=== PATIENT | female | born 1960 | race Caucasian/White ===

== ENCOUNTER 2016-05-29 16:55 | Inpatient (IN) ==
[2016-05-29] MEDS ORDERED: ASPIRIN PO STA (18:13)
--- NOTE | 2016-05-29 18:16 | PROVIDER DOCUMENTATION ---
HPI-Respiratory General - General Chief Complaint: Cough Stated Complaint: COPD,COUGHING,CHEST HURTS Time Seen by Provider: 05/29/16 18:07 Source: patient Allergies/Adverse Reactions: Patient Allergies Allergy/AdvReac Type Severity Reaction Status Date / Time meperidine HCl * AdvReac Severe AGITATION Verified 05/29/16 19:05 [From Demerol] Home Medications: Home Medication List Medication Instructions Recorded Confirmed Last Taken Type Buprenorphine HCl/Naloxone HCl 8 mg SL BID 03/03/12 05/29/16 05/29/16 History [Suboxone 8 mg/2 mg Sl Film] Fluticasone/Salmeterol [Advair 1 each IH DAILY PRN 03/05/12 05/29/16 05/29/16 History 250-50 Diskus] Furosemide [Lasix] 40 mg PO DAILY #0 vial 02/17/14 05/29/16 05/29/16 Rx Potassium Chloride 20 meq PO BID #0 tablet.er 02/17/14 05/29/16 05/29/16 Rx Ibuprofen 800 mg PO TID 01/24/15 05/29/16 05/29/16 History Rivaroxaban [Xarelto] 15 mg PO DAILY 01/24/15 05/29/16 05/29/16 History Sulfamethoxazole/Trimethoprim 1 each PO BID #20 tablet 08/31/15 05/29/16 Rx [Bactrim Ds Tablet] Methocarbamol [Robaxin] 500 mg PO BID PRN 05/29/16 05/29/16 05/29/16 History Multivitamin [Multivitamins] 1 each PO DAILY 05/29/16 05/29/16 05/29/16 History - History of Present Illness-Resp Nature of Presenting Problem: 55 year old WF presents with multiple complains: cough, congestion, subjective fever, chills, chest pain (last night now resolved), low back pain, constipation , epigastric pain. onset of all symptoms 5 days ago. pt reports associated lack of appetite, nausea, weakness. pt reports similar symptoms in the past with a diagnosis of pna. pt reports she is taking all medications as prescribed. pt was evaluated by her PMD yesterday for same and was told it was her COPD. pt in very mild distress. slightly short of breath with walking from waiting to triage 2 where she was examined. Quality of Pain: reports: aching, dull Severity in ED: reports: mild Onset/Duration: reports: 5 days ago Timing: reports: still present, constant, getting worse Context: denies: recent URI, out of meds Exposure: reports: unknown cause Cough Quality/Degree: reports: moderate Episode Frequency: chronic episodes Current Respiratory Medication Therapy: Initiated steroid inhaler, Initiated albuterol Modifying Factors: improves with: nothing, rest, sitting upright. worse with: albuterol inhaler (pt reports no relilef with 1 puff BID) Associated Symptoms: reports: chest pain/soreness, cough, fever/chills, hurts to breathe, shortness of breath, short of breath, wheezing Similar Symptoms Previously?: Yes Recently seen or treated by another doctor?: Yes Review of Systems - Adult - REVIEW OF SYSTEMS - ADULT Constitutional: reports: see HPI, chills, fever (subjective) Eyes: reports: no symptoms reported. denies: discharge, blurred vision, double vision Ears, Nose, Mouth & Throat: reports: no symptoms reported. denies: ear discharge, ear pain, nose pain, loose teeth, throat pain, throat swelling Cardiovascular: reports: see HPI, chest pain, edema, irregular heart rate. denies: heart murmur, orthopnea, palpitations, poor circulation, PND, syncope Respiratory: reports: see HPI, chronic cough, dyspnea on exertion (baseline for patient), shortness of breath, wheezing Gastrointestinal: reports: see HPI, constipation, nausea, poor appetite, vomiting. denies: abdominal pain, hematemesis, diarrhea, difficulty swallowing , frequent heartburn, rectal bleeding Genitourinary: reports: no symptoms reported. denies: dysuria, hematuria, urgency Musculoskeletal: reports: no symptoms reported. denies: bone pain, joint pain, joint swelling, neck pain Integumentary: reports: see HPI, skin sores/ulcer (chronic). denies: hives Neurological: reports: no symptoms reported. denies: ataxia, dizziness/vertigo , headache/migraines Psychiatric: reports: no symptoms reported Endocrine: reports: no symptoms reported Hematologic/Lymphatic: reports: no symptoms reported Allergic/Immunologic: reports: see HPI, frequent infections (pna) All Other Systems: Reviewed and Negative Past History - Adult - PAST MEDICAL HISTORY-ADULT Review of Records: reports: Old Records Reviewed, Nursing Assessment Review, Medications Reviewed, Social history reviewed & non-contributory. Major Childhood Illnesses: reports: denies history Cardiovascular: reports: cardiac disease, A-Fib, angina, CAD, CHF, HTN, hyperlipidemia, OH, pacemaker (with defibrillator), pericardial disease Respiratory: reports: asthma, bronchitis, COPD Gastrointestinal: reports: denies history Obstetrical/Gynecological: reports: denies history Genitourinary: reports: denies history Musculoskeletal: reports: chronic pain, intervertebral disc disease, neck/back injury, orthopedic injury Neurological: reports: CVA Psychiatric: reports: anxiety Diabetes Type: Type 2 Diabetes controlled by:: Diet Other Conditions: reports: denies history - PRIOR SURGERIES/PROCEDURES Surgical/Procedure History: reports: cholecystectomy, pacemaker, hysterectomy - IMMUNIZATION STATUS Childhood Immunizations: See Nurse Assessment Flu Vaccine: See Nurse Assessment - FAMILY HISTORY Family History: reviewed, not pertinent - SOCIAL HISTORY Smoking: cigarettes, greater than 1 pack/day Provider spent 3-5 mins advising pt. on dangers of tobacco.: Discussed manners to quit use, and f/u contacts for add'l counseling. Substance Use: none/never Alcohol Use Frequency: never Physical Exam-General - PHYSICAL EXAM-ADULT Initial Vital Signs Reviewed: Yes - CONSTITUTIONAL General Appearance: appears well, alert, no apparent distress. negative: mild distress, moderate distress, severe distress - EYES Eyes: pink conjunctivae. negative: conjuctival exudate, pale conjunctivae, scleral icterus, subconjunctival hemorrhage - HEAD, EARS, NOSE, MOUTH & THROAT HENMT: normocephalic/atraumatic, moist mucous membranes, normal ENT inspection - NECK Neck: non-tender, full range of motion, supple, normal inspection. negative: C- spine tenderness, limited range of motion, tender lateral, tender midline - RESPIRATORY Respiratory: chest non-tender, lungs clear, no pleuratic chest pain, no respiratory distress, no accessory muscle use, decreased breath sounds. negative: normal breath sounds, respiratory distress, accessory muscle use, crackles, rales, rhonchi, stridor, wheezing - CARDIOVASCULAR Cardiovascular: normal peripheral pulses, regular rate, rhythm, no edema, no gallop, no JVD, no murmur - GASTROINTESTINAL (ABDOMEN) Abdominal Exam: normal bowel sounds, soft, no organomegaly, no pulsatile mass, tenderness (epigastric tenderness). negative: non tender, abnormal bowel sounds , distended, guarding, rigid, rebound, hernia, mass, hepatomegaly, spleenomegaly , McBurney's point tenderness, Quijano's sign, obturator sign, prominent aortic pulsations, psoas, Rovsing's sign - LYMPHATIC Lymphatic: no adenopathy - MUSCULOSKELETAL Back Exam: normal inspection, no CVA tenderness, no vertebral tenderness. negative: CVA tenderness, decreased range of motion, swelling, vertebral tenderness Extremity: normal range of motion, non-tender, normal gait, normal inspection, no calf tenderness, normal capillary refill, pelvis stable, pedal edema (trace edema to bilateral lower extremities to the knee level). negative: no pedal edema, calf tenderness, deformity, erythema, inflammation, joint effusion, swelling, tenderness Peripheral Pulses: radial (R): 3+, radial (L): 3+, dorsalis-pedis (R): 3+, dorsalis-pedis (L): 3+ - SKIN Integumentary: normal color, normal turgor, warm/dry. negative: pallor, petechiae, purpura, rash - NEUROLOGIC Neurologic: grossly normal, no motor/sensory deficits - PSYCHIATRIC Psych/Mental Status: normal mood/affect, normal thought content, normal thought process, oriented x 3 Progress - PLAN OF CARE/RESULTS Progress/Plan/Lab Results: Orders Category Date Time Status Admit - [facility] - [facility] Routine AdmDCTranf 05/30/16 00:42 Ordered Cardiac Monitoring DIRECTED Care 05/29/16 18:14 Completed Misc. NRSG Communication Order DIRECTED Care 05/30/16 00:42 Active Notify MD if DIRECTED Care 05/30/16 00:42 Active Nursing- MD Consult Request ROUTINE Care 05/30/16 00:42 Completed Nursing- MD Consult Request ROUTINE Care 05/30/16 00:42 Completed Saline Loc NOW Care 05/29/16 18:14 Completed Vital Signs Order Q 4-HR ASSESS Care 05/30/16 00:42 Active Physician/Provider Consults Routine Cons 05/30/16 08:00 Ordered Physician/Provider Consults Routine Cons 05/30/16 08:00 Ordered ABDOMEN FLAT/UPRIGHT [RAD] Stat Exams 05/29/16 18:14 Completed CHEST-2 VIEWS [RAD] Stat Exams 05/29/16 17:14 Completed AMYLASE [CHEM] Stat Lab 05/29/16 19:20 Completed BLOOD CULTURE [BLDCUL] Stat Lab 05/29/16 19:25 Results CBC WITH ELECTRONIC DIFF [HEME] Routine Lab 05/30/16 05:00 Completed CBC WITH ELECTRONIC DIFF [HEME] Stat Lab 05/29/16 19:20 Completed CK PROFILE [SP CHEM] Q8H Lab 05/30/16 01:45 Completed CK PROFILE [SP CHEM] Q8H Lab 05/30/16 08:20 Completed CK PROFILE [SP CHEM] Q8H Lab 05/30/16 17:00 Completed CK PROFILE [SP CHEM] Stat Lab 05/29/16 19:20 Completed CK PROFILE [SP CHEM] Stat Lab 05/29/16 21:58 Completed COMPREHENSIVE METABOLIC PANEL [CHEM] Stat Lab 05/29/16 19:20 Completed D-DIMER [CHEM] Stat Lab 05/29/16 19:20 Completed LACTATE, PLASMA [CHEM] Stat Lab 05/29/16 19:25 Completed LIPASE [CHEM] Stat Lab 05/29/16 19:20 Completed LIPID PROFILE W/DIR LDL [LIPIDS] Routine Lab 05/30/16 05:00 Completed MAGNESIUM [CHEM] Stat Lab 05/29/16 19:20 Completed PRO B-NATRIURETIC PEPTIDE Stat Lab 05/29/16 19:20 Completed PROTIME WITH INR [COAG] Stat Lab 05/29/16 19:20 Completed PTT [COAG] Stat Lab 05/29/16 19:20 Completed TROPONIN T Q8H Lab 05/30/16 01:45 Completed TROPONIN T Q8H Lab 05/30/16 08:20 Completed TROPONIN T Q8H Lab 05/30/16 17:00 Completed TROPONIN T Stat Lab 05/29/16 19:20 Completed TROPONIN T Stat Lab 05/29/16 21:58 Completed UA NIMS W/REFLEX CULT [URINALYSIS] Stat Lab 05/30/16 09:30 Completed 0.9% Sodium Chloride Inj [Ns] 1,000 ml Med 05/30/16 00:42 Discontinued IV 50 mls/hr Acetaminophen [Tylenol] Med 05/30/16 00:42 Active 650 mg PO Q6H PRN PRN Albuterol 2.5MG/Ipratrop 0.5MG [Duoneb (A & A)] Med 05/30/16 00:42 Active 3 ml INH RTQ6H Aspirin Med 05/30/16 09:00 Active 325 mg PO DAILY Aspirin Med 05/29/16 18:13 Discontinued 325 mg PO STAT STA Buprenorphine/Naloxone S.l. [Suboxone 8 mg/2 mg] Med 05/30/16 02:15 Active 1 each SL BID Fluticasone/Salmet 250/50 INH [Advair 250/50 Diskus] Med 05/29/16 23:43 Active 2 puff INH DAILY PRN PRN Morphine Med 05/29/16 20:46 Discontinued 4 mg IV NOW ONE Morphine Med 05/29/16 21:58 Discontinued 4 mg IV NOW ONE Ondansetron [Zofran] Med 05/29/16 20:46 Discontinued 4 mg IV NOW ONE Ondansetron [Zofran] Med 05/30/16 00:42 Active 4 mg IV Q4H PRN PRN Rivaroxaban [Xarelto] Med 05/30/16 09:00 Discontinued 15 mg PO DAILY Aerosol Treatments Routine Oth 05/30/16 00:42 Completed Aerosol Treatments Stat Oth 05/30/16 00:42 Completed Oxygen Device Routine Oth 05/30/16 00:42 Completed Telemetry [OM.EQ] Routine Oth 05/30/16 00:42 Active EKG [EKG] Stat Ther 05/29/16 18:14 Draft EKG [EKG] Stat Ther 05/29/16 21:40 Draft Echo Spec/Color Dop W/O Contra Routine Ther 05/30/16 00:42 Completed Transfer/Admit Order [TRANSFER] Routine Transfer 05/29/16 23:46 Completed Reviewed labs,radiology, EKG, H&P with Dr. Philippe, agrees with plan of care, treatment and admission. Result Diagrams: 05/30/16 05:00 05/31/16 08:23 - XRAY 1 XRAY Study: Chest Impression: Normal 2 XRAY Study: Abdomen Impression: Normal - CONSULTS/PCP/HOSPITALIST Notification #1 *Consult/PCP/Hospitalist*: Answering service for Dr. Gross Time Discussed: 20:47 Consult Disposition: other (attempted to call him directly, no answer, they will send message for him to call, relayed labs.) #2 Consult: Dr. Gross Time Discussed: 21:27 Reason/Comments: Reviewed labs, EKG findings, hx, H&P. Consult Disposition: Admit (admit to hospitalist and he will consult.) #3 Consult: Dr. Collier Time Discussed: 23:16 Consult Disposition: Will see in ED, Admit Departure - Departure Time of Disposition Decision: 23:20 DIAGNOSIS: Chest pain, Heart failure, Elevated troponin Disposition: ADMITTED INPATIENT 09 Certified Medical Emergency: Emergent Condition: Stable Attestation - Physician/ ANABELLE Attestation Patient care was provided by Advanced Practice Provider:: Yes Advanced Practice Provider:: Hussain Levin Advanced Practice Provider documentation review:: The Mid-level provider documentation, treatment plan and medical decision making was reviewed by the physician who agrees with all treatment and medical decision making by the MLP.
--- NOTE | 2016-05-29 18:51 | Diag Imaging Result Document ---
PROCEDURE NAME: CHEST-2 VIEWS - 05/29/2016 FRONTAL AND LATERAL CHEST, 2 VIEWS: COMPARISON: Compared to 04/11/2015. The lungs are well expanded. The heart is not enlarged. The vessels are not distended. No pleural effusions. There is a left-sided pacemaker. No consolidation. IMPRESSION: No pneumonia.
[2016-05-29 19:38] LABS: MANUAL DIFF NEEDED? NO
[2016-05-29 19:44] LABS: BASO% 0.2 % (0.0-0.8); EOS# 0.03 X1000 (0.0-0.7); EOS% 0.2 % (0.0-10.0); HEMATOCRIT 37.9 % (37.0-47.0); HEMOGLOBIN 12.6 g/dL (12.0-16.0); IMM GRAN# 0.03 X1000 (0.0-0.04); IMM GRAN% 0.2 % (0.0-0.5); LYMPH# 1.76 X1000 (1.2-3.4); LYMPH% 11.4 % (20.5-51.1); MCH 29.9 PG (27-31); MCHC 33.2 g/dL (33-37); MONO# 1.31 X1000 (0.11-0.59); MONO% 8.5 % (1.7-9.3); MPV 11.7 FL (7.4-10.4); NEUT% 79.5 % (42.2-75.2); PLT 195 X1000 (130-400); RBC 4.21 XMIL (4.2-5.4)
[2016-05-29 19:52] LABS: INR 1.02; PROTIME 10.7 Seconds (9.2-11.7); PTT 29.5 Seconds (22.0-36.0)
[2016-05-29 20:15] LABS: ALBUMIN 3.8 g/dL (3.5-5.0); CALCIUM 8.9 mg/dL (8.8-10.2); MAGNESIUM 1.5 mg/dL (1.5-2.7); POTASSIUM 3.8 mmol/L (3.5-5.1); TOTAL BILIRUBIN 0.28 mg/dL (0.20-1.00); TOTAL PROTEIN 7.2 g/dL (6.3-8.3)
[2016-05-29 20:33] LABS: CK INDEX 7.3 (0.0-2.5); CK-MB 57.66 ng/mL (0.0-5.0)
[2016-05-29] MEDS ORDERED: ZOFRAN IV ONE (20:46)
[2016-05-29] MEDS ORDERED: MORPHINE IV ONE ×2 (20:46→21:58)
--- NOTE | 2016-05-29 21:37 | Diag Imaging Result Document ---
PROCEDURE NAME: ABDOMEN FLAT/UPRIGHT - 05/29/2016 FLAT AND UPRIGHT, 2 VIEWS: COMPARISON: Compared to 01/24/2015. No free air beneath the diaphragm. There are vascular stents overlying the lower lumbar spine and pelvis. There has been prior surgery to the lower lumbar spine. The bowel loops are not dilated. No organomegaly. A small amount of stool is found throughout the colon. No abnormal abdominal calcifications. IMPRESSION: Mild constipation.
[2016-05-29 22:57] LABS: CK INDEX 6.3 (0.0-2.5); CK-MB 46.12 ng/mL (0.0-5.0)
[2016-05-29] MEDS ORDERED: ADVAIR 250/50 DISKUS INH PRN (23:43)
[2016-05-30] MEDS ORDERED: NS 1,000 ML IV ONE (00:42)
--- NOTE | 2016-05-30 01:31 | HISTORY AND PHYSICAL ---
PRIMARY CARE PROVIDERS: Dr. Jeff Bills. AUTO RESEARCH ENGINEER: Dr. Gross. CHIEF COMPLAINT: Cough, shortness of breath and chest pain. HISTORY OF PRESENT ILLNESS: This is a 55-year-old female, who recently saw Dr. Gross. He released her related to her not keeping appointments. She now sees Dr. Bills, and was in her PCP office yesterday with complaints of a cough and congestion, and was told that it was her COPD. Upon presentation tonight, she had a complaint of cough, congestion and fever at home. Chills and chest pain last night that had resolved. It was mid sternal into her left chest, causing tingling in her arms. She also had nausea with this. No vomiting. She had shortness of breath with exertion, but was able to walk without shortness of breath [facility]. She also had complaint of constipation and epigastric pain in the emergency room. All which started roughly 5 days ago. The patient has a history of coronary artery disease with stenting, atrial fibrillation with chronic anticoagulation on Xarelto. She has a pacemaker with defibrillator. She has COPD and continues to smoke. She takes Suboxone for chronic back pain. At any rate, a chest x-ray was obtained in the emergency room, which was read as basically an in place left-sided pacemaker. No pulmonary edema. No pleural effusions, and no infiltrates consistent with pneumonia. A flat and upright of the abdomen was obtained, which did show mild constipation. The patient takes Lasix at home, noted that the Lasix over the past couple of days did not work as well as usual, as far as pulling fluid off of her, which correlates with her laboratory data of an elevated creatinine of 1.7. It was also noted that the patient had Bactrim DS in the emergency room, which could have caused her to have acute kidney injury. Her CK's and troponin's were elevated in the emergency room. The troponin started off at 2.040, and will on recheck 2.240. Dr. Gross was made aware, and will see the patient in the morning. She will be admitted to CICU for further evaluation and treatment. ALLERGIES: Demerol. PAST MEDICAL HISTORY: Ovarian cancer. All other past medical history listed in the HPI. PREVIOUS SURGICAL HISTORY: 1. Cardiac stenting. 2. Hysterectomy . 3. Cholecystectomy. 4. Skin graft to right upper arm. 5. Back fusions x2. 6. Pacemaker, and then pacemaker placement. SOCIAL HISTORY: Lives at home. Smokes 1 to 2 packs of cigarettes per day. Quit work 6 months ago for her health. Denies alcohol or substance abuse. Does take Suboxone for chronic back pain. FAMILY HISTORY: Her mother had diabetes mellitus and colon cancer. Father diabetes and prostate cancer. HOME MEDICATIONS: 1. Suboxone 8 mg/2 mg b.i.d. 2. Advair 250/50, one inhalation p.r.n. 3. Lasix 40 mg p.o. daily. 4. Potassium 20 mEq p.o. b.i.d. 5. Ibuprofen 800 mg p.o. t.i.d. 6. Xarelto 15 mg p.o. daily. 7. Bactrim DS 1 p.o. b.i.d. 8. Multivitamin. 9. Robaxin 500 mg p.o. b.i.d. REVIEW OF SYSTEMS: Fourteen point review of systems conducted with the patient. Pertinent positives are listed above in the HPI. All other systems were reviewed and are negative. PHYSICAL EXAMINATION: VITAL SIGNS: Temperature 98.4, pulse 94, respirations 23, blood pressure 108/51, oxygen saturation 95% on 2 L nasal cannula. GENERAL: Pleasant 55-year-old female, sitting up in the ER stretcher, drinking a diet Mountain Dew, in no acute distress. Answers all questions appropriately. HEENT: Head is atraumatic, normocephalic. Pupils equal, round, reactive to light. Extraocular eye movement intact. Sclerae is anicteric. Conjunctivae is pink. Oral mucosa is moist. NECK: Supple. No JVD. No thyromegaly. Trachea is midline. CARDIAC: Regular rhythm, S1-S2 appreciated. No murmurs, gallops or rubs. LUNGS: Mild expiratory wheezing throughout bilateral lung olea, otherwise symmetrical rise and fall with respirations. No rhonchi and no rales. ABDOMEN: Protuberant, soft, nondistended, nontender. Bowel sounds decreased in all 4 quadrants. No pulsatile mass. No organomegaly. EXTREMITIES: No clubbing, cyanosis, or edema. Bilateral lower extremities 2+ pedal pulses. Bilateral upper extremities small scabs noted on bilateral extremities. NEUROLOGICAL: Alert orient x3. Cranial nerves 2 through 12 grossly intact. SKIN: Warm, dry. Multiple skin lesions noted to bilateral upper extremities with scabbing. DIAGNOSTIC DATA: Chest x-ray, NAD, pacemaker in place. Flat and upright abdomen mild constipation. LABORATORY DATA: WBC 15.49, hemoglobin 12.6, hematocrit 37.9, platelet count 195,000. Coag's within normal limits. D-dimer 0.91. Sodium 137, potassium 3.8, chloride 98, carbon dioxide 20, BUN 25, creatinine 1.7, glucose 126, AST 78. CK 787, on recheck it was 735. CK index 7.3. On recheck it was 6.3. Troponin 2.040, on recheck it was 2.240. Pro BNP 20,949. UA is pending. ASSESSMENT AND PLAN: 1. Chest pain, rule out acute myocardial infarction. Dr. Gross as been consulted. We will tend cardiac enzymes. Aspirin daily, continue patient's Suboxone. We will not order morphine at this time. 2. Acute kidney injury. The patient was taking Bactrim DS, NSAIDs 3 times a day, as well as, Lasix. We will give gentle fluid hydration over night at 50 mL an hour. We will not reorder Lasix. As noted above, Dr. Gross has been consulted. We will also consult Dr. Jennings to help out with this. Echocardiogram will be done in the morning. Lasix can be resumed at that time if needed. 3. Congestive heart failure. The patient's last echocardiogram was in 2013, that showed a 55 to 60% ejection fraction. New echocardiogram will be obtained. As noted above, we will hold Lasix at this time overnight. 4. COPD with continued tobacco use. The patient is complaining of cough and shortness of breath, and does have an elevated white blood cell count. There was no noted source of infection on the chest x-ray. We will treat with azithromycin IV daily, for what is likely a COPD exacerbation. 5. Smoking cessation was gone over with the patient. She denies wanting to quit at this time, although, she states that she does know that she needs to quit. Recheck laboratory data in 24 hours. Check a lipid profile. Hold patient NPO. 6. Further recommendations per patient's clinical course. Dictated by PEPE Sanchez for Noah Villeda MD cc: PEPE Sanchez MD Neil Yeager, MD Luis N. Villanueva, MD
[2016-05-30] MEDS: SUBOXONE 8 MG/2 MG SL SCH ×3 (02:29→20:22)
[2016-05-30] MEDS: ZITHROMAX 500 MG/NS 500 MG/250 ML IVPB IV SCH (02:30)
[2016-05-30 03:01] LABS: CK INDEX 5.8 (0.0-2.5)
[2016-05-30] MEDS: DUONEB (A & A) INH SCH ×3 (03:10→22:00)
[2016-05-30 05:16] LABS: MANUAL DIFF NEEDED? NO
[2016-05-30 05:21] LABS: BASO% 0.1 % (0.0-0.8); EOS# 0.07 X1000 (0.0-0.7); EOS% 0.5 % (0.0-10.0); HEMATOCRIT 36.8 % (37.0-47.0); HEMOGLOBIN 11.8 g/dL (12.0-16.0); LYMPH# 1.39 X1000 (1.2-3.4); MCHC 32.1 g/dL (33-37); MCV 93.6 FL (81-99); MONO# 1.41 X1000 (0.11-0.59); MONO% 9.1 % (1.7-9.3); MPV 12.1 FL (7.4-10.4); NEUT% 81.3 % (42.2-75.2); PLT 179 X1000 (130-400); RBC 3.93 XMIL (4.2-5.4)
--- NOTE | 2016-05-30 05:36 | EKG Report ---
Test Performed on : 05/29/2016 10:08:15 PM Test Reason : 2 hour repeats cp Blood Pressure : / mmHG Vent. Rate : 082 BPM Atrial Rate : 082 BPM P-R Int : 162 ms QRS Dur : 090 ms QT Int : 382 ms P-R-T Axes : 041 056 253 degrees QTc Int : 446 ms Normal sinus rhythm. Low voltage QRS Cannot rule out Anteroseptal infarct (cited on or before 26-MAY-2013) Abnormal ECG When compared with ECG of 29-MAY-2016 19:02, (Unconfirmed) No significant change was found Unconfirmed Result
--- NOTE | 2016-05-30 05:37 | EKG Report ---
Test Performed on : 05/29/2016 7:02:50 PM Test Reason : SOB Blood Pressure : / mmHG Vent. Rate : 078 BPM Atrial Rate : 078 BPM P-R Int : 156 ms QRS Dur : 090 ms QT Int : 394 ms P-R-T Axes : 020 043 195 degrees QTc Int : 449 ms Normal sinus rhythm. Low voltage QRS Cannot rule out Anteroseptal infarct (cited on or before 26-MAY-2013) Abnormal ECG When compared with ECG of 02-MAR-2015 16:59, premature ventricular complexes. are no longer present Serial changes of evolving Anteroseptal infarct present Unconfirmed Result
[2016-05-30 06:06] LABS: CALCIUM 8.9 mg/dL (8.8-10.2); MAGNESIUM 1.6 mg/dL (1.5-2.7); POTASSIUM 4.5 mmol/L (3.5-5.1)
--- NOTE | 2016-05-30 07:23 | EKG Report ---
Test Performed on : 05/30/2016 07:05:19 AM Test Reason : acute KS Blood Pressure : / mmHG Vent. Rate : 089 BPM Atrial Rate : 089 BPM P-R Int : 176 ms QRS Dur : 106 ms QT Int : 360 ms P-R-T Axes : 037 063 -42 degrees QTc Int : 438 ms Normal sinus rhythm. Low voltage QRS Septal infarct (cited on or before 26-MAY-2013) Abnormal ECG When compared with ECG of 29-MAY-2016 22:08, No significant change was found Confirmed by John EDMONDSON, Chris Dias ([id number]) on 05/30/2016 5:57:31 PM
[2016-05-30] MEDS ORDERED: XARELTO PO SCH (09:00)
--- NOTE | 2016-05-30 09:02 | PROGRESS NOTE ---
DATE: 05/30/2016 SUBJECTIVE: The patient was admitted early this morning. He is a patient of Dr. Gross and Dr. Jeff Bills who presented with cough, shortness of breath, and chest pain. This is a 55-year- old who recently saw Dr. Gross. He released her related to her not keeping her appointments. She now sees Dr. Bills. Was in her primary care physician's office yesterday with complaints of cough and congestion. Was told that it was her COPD. Upon presentation last night in the emergency room, complained of cough, congestion, and fever at home, chills and chest pain. She had some midsternal left chest pain that she said was radiating to her back and around to her left shoulder, into both arms. She also had some nausea with this. No vomiting. She had some shortness of breath with exertion but was able walk without shortness of breath in the emergency room apparently. Also had a complaint of constipation, epigastric pain in the emergency room. This started roughly 5 days ago. OBJECTIVE: She has a history of coronary artery disease with stenting, atrial fibrillation, chronic anticoagulation on Xarelto. Had pacemaker with defibrillator. She has COPD and continues to smoke. A chest x-ray was obtained and basically left-sided pacemaker. No pulmonary edema. No pleural effusion. No infiltrates. Looks like she has a non-ST OK. Chest x-ray consistent with COPD. Noted her EKG was low voltage and poor R-wave progression in the septal leads. Nonspecific ST segments. Her lab, white blood cell count was 15,480, hematocrit 36, platelet count 179,000. Sodium 143, potassium 4.5, chloride 102, BUN 29, creatinine 2.1. CPKs were 735 and 705, troponin was 2.24 and then came down to 0.241 so consistent with a non-ST OK. ASSESSMENT AND PLAN: 1. Chest pain. Rule out acute myocardial infarction. Appears that she has a non-ST myocardial infarction with elevation of troponin and CPK. Dr. Gross has evaluated already this morning. 2. Acute kidney injury. Was taking Bactrim and nonsteroidal anti-inflammatories three times a day as well as some Lasix. We have given some intravenous hydration, see if it will improve her renal function. 3. Congestive heart failure. Patient's last echocardiogram in 2013 showed an ejection fraction of 55-60%. New echocardiogram will be obtained this admission. 4. Chronic obstructive pulmonary disease, continued tobacco use. Off oxygen at the present time. 5. Orders. Reviewed orders. Patient getting some morphine for pain. She is on Capoten 6.25 mg every 8 hours. She is on buprenorphine sublingual twice a day and that is 8-2. cc: Anselmo Diaz MD
[2016-05-30 09:18] LABS: CK INDEX 5.4 (0.0-2.5); CK-MB 33.96 ng/mL (0.0-5.0)
[2016-05-30] MEDS: ASPIRIN PO SCH (09:45)
[2016-05-30] MEDS: LOPRESSOR PO SCH ×3 (09:46→20:22)
[2016-05-30] MEDS: LOVENOX SUBQ SCH (09:46)
[2016-05-30 09:48] LABS: URINE CULTURE NEEDED? NO; URINE MICRO REVIEW NEEDED? NO; URINE SOURCE CLEAN CATCH
[2016-05-30 09:57] LABS: BILIRUBIN URINE SMALL (NEGATIVE); BLOOD URINE NEGATIVE (NEGATIVE); COLOR YELLOW; GLUCOSE URINE NEGATIVE (NEGATIVE); LEUKOCYTES URINE NEGATIVE (NEGATIVE); NITRITE URINE NEGATIVE (NEGATIVE); PH URINE 5.5; PROTEIN URINE 100 mg/dL (NEGATIVE); SP GRAVITY URINE 1.026; TURBIDITY URINE HAZY (CLEAR); UROBILINOGEN URINE 3 mg/dL (NORMAL)
[2016-05-30 10:00] LABS: UR EPITHELIAL CELLS >10 /HPF (<10); URINE BACTERIA NEGATIVE /HPF; URINE RBC <10 /HPF (<10); URINE WBC <10 /HPF (<10)
[2016-05-30 11:07] LABS: UR PROT RANDOM 123.9 mg/dL
--- NOTE | 2016-05-30 11:26 | Diag Imaging Result Document ---
PROCEDURE NAME: US RENAL 2 (RETROPER) COMPLETE - 05/30/2016 RENAL ULTRASOUND, 05/30/2016: COMPARISON: CT abdomen and pelvis 01/28/2010. FINDINGS: The kidneys and urinary bladder are normal. The right kidney measures 10.6 x 5.1 x 4.6 cm. Cortex measures 11 mm. The left kidney measures 11.7 x 4.7 x 5.5 cm. Cortex measures 12 mm. There are bilateral pleural effusions. IMPRESSION: Bilateral pleural effusions. Normal exam of the kidneys.
[2016-05-30] MEDS: TYLENOL PO PRN ×2 (13:46→19:45)
[2016-05-30] MEDS: CAPOTEN PO SCH ×2 (13:48→20:22)
--- NOTE | 2016-05-30 15:08 | CONSULTATION ---
DATE OF CONSULTATION: 05/30/2016 REASON FOR ADMISSION: Cough x5 days with increased work of breathing and chest pain, midsternal, heaviness. REASON FOR CONSULTATION: Acute kidney injury. CONSULTING PHYSICIAN: Dr. Noah Villeda. PRIMARY CARE PHYSICIAN: Dr. Bills. SUBSEA ENGINEER: Dr. Gross. HISTORY OF PRESENT ILLNESS: Ms. Silva is a 55-year-old white female who states that she has recently seen her student worker and was unable to keep her last appointment in their office. She states that she has just recently also started seeing Dr. Bills and was in his office yesterday with complaints of a cough for 5 days with congestion. She was told that it was her COPD. She presented then to [facility] yesterday evening with chest pains and a low-grade fever at home. She stated she had some chills, chest pain, increased work of breathing with cough. It was located midsternal, going into the left chest, causing tingling in her left arm. It also was associated with nausea. No vomiting. No increased lower extremity swelling. She states that she has had some epigastric pain and recent constipation. No recent falls. PAST MEDICAL HISTORY: Coronary artery disease with stents, atrial fibrillation with chronic anticoagulation on Xarelto. She has a pacemaker with a defibrillator. She has COPD and does continue to smoke 2 packs per day. She also takes Suboxone for chronic pain syndrome to lower back and legs. She also has a history of ovarian cancer. PAST SURGICAL HISTORY: Cardiac stent x3, hysterectomy, cholecystectomy, skin graft to the right upper arm, back fusions x2, pacemaker, and then pacemaker replacement. SOCIAL HISTORY: She lives at home. She has children who are attentive to her care. She has a history of 1-2 packs of cigarettes a day, though she states that she has attempted to quit in the last 4-6 months. She denies any alcohol or illicit drug use. She does take Suboxone for chronic pain. FAMILY HISTORY: Mother had diabetes mellitus and colon cancer. Father had diabetes and prostate cancer. ALLERGIES: Listed as Demerol. MEDICATIONS: Her home medications are Suboxone, Advair, Lasix, potassium, ibuprofen, Xarelto, Bactrim DS, multivitamin, and Robaxin b.i.d. REVIEW OF SYSTEMS: Times 10 with pertinent positives listed above in the HPI. VITAL SIGNS: Temperature 99.1 degrees, blood pressure 84/57, heart rate 91, respirations 21. She is on 2 L nasal cannula. Last recorded saturation is 90%. Patient states that she has been voiding. She has not been on a strict I O. She has 0 recorded in or out. LABS: Sodium 143, potassium 4.5, chloride 102, CO2 20, BUN 29, creatinine 2.1, glucose 198. Her anion gap is 21, calcium 8.9, magnesium is 1.6. White count 15.48, hemoglobin 11.8, hematocrit 36.8, with a platelet count of 179,000. She has elevated cardiac enzymes with elevated troponin. Her plasma lactate was 1.7 on admission. Renal ultrasound shows right kidney measuring 10.6 with the left measuring 11.7. It also indicated bilateral pleural effusions. PHYSICAL EXAMINATION: General: This is a 55-year-old white female. She is sitting up in bed. She is tearful. She has just recently been told that she has had a heart attack. She continues to have some chest pressure. She is currently on telemetry. She is in mild distress. Skin: Warm and dry. HEENT: Normocephalic, atraumatic. Conjunctivae pink. She has JASON. Mucous membranes moist. Neck: Supple. Trachea midline. No JVD. Cardiovascular: She has regular rate and rhythm. She is sinus rhythm on the monitor. No murmur or gallop appreciated. Pacemaker site noted to the left chest wall. Lungs: She has inspiratory and expiratory wheezes. Otherwise, no crackles are noted. Equal excursion. On O2. Abdomen: Large, round, soft, nontender. Positive bowel sounds. Genitourinary: Not inspected. Patient has been requested to keep accurate I's and O's and notify her nurses. Extremities: She does have 1 to 2+ lower extremity edema. No clubbing or cyanosis. Integumentary: The patient has different small healing scabs to bilateral extremities, mostly to the upper arms. Neurological: Alert and oriented x3. ASSESSMENT AND PLAN: 1. Acute kidney injury on chronic kidney disease. Patient has been taking Bactrim DS. She has also been on nonsteroidal anti-inflammatories as well for the last 3 days with Lasix. This appears to be multifactorial. She is not much off her baseline last noted in 2014 of being at 1. Patient does continue hypotensive. As noted, she is being evaluated for an VT. We will check urine electrolytes. Ultrasound has been completed. No indications for intervention. 2. Congestive heart failure with bilateral pleural effusions. Cardiology is to resume her Lasix. 3. Electrolytes. These remain stable. 4. Acid-base balance. This is stable. 5. Anemia. This is close to target. 6. Chest pain with acute myocardial infarction. Dr. Gross is following. I would like to thank you for allowing us to follow with this patient. Seen, data reviewed, discussed with Gerber Meneses on 05/30/16. I agree with the above assessment and plan of care. rg Dictated by PEPE Doshi for Raymond Jennings MD cc: PEPE Doshi MD [facility]
--- NOTE | 2016-05-30 17:03 | ECHO REPORT ---
ORDER DATE: 05/30/2016 INTERPRETING PHYSICIAN: Dr. Gross CLINICAL INDICATIONS: Y[age]orqgc-qmrk-old female with chest pain, stent, pacemaker. M-MODE MEASUREMENTS: Right ventricle: 2.5 cm. Left ventricle end diastole: 6.3 cm. Left ventricle end systole: 5.3 cm. Posterior wall: 1.2 cm. Interventricular septum: 1.2 cm. Left atrium: 6.4 cm. Aortic root: 2.6 cm. SUMMARY OF 2-DIMENSIONAL IMAGING: The left ventricular chamber is moderately to significantly enlarged. The global ejection fraction is probably moderately impaired; however, in the four-chamber view, it actually looks pretty normal. However, in the two-chamber apical view, the inferior wall is significantly impaired. I believe the global ejection fraction is somewhere in the range of 45%. The ejection fraction could actually be better than that, but at least is 45%. The inferior vena cava is enlarged. The tricuspid valve shows trace regurgitation. Pulmonary pressure estimated to be in the range of 43 to 48 mmHg. Pulmonic valve looks normal. Color flow mapping unremarkable. Mitral valve shows some degree of thickening. Color flow mapping indicates moderate to moderately severe degree of regurgitation. Pulse wave Doppler of mitral inflow shows "normal" E/A ratio. The tissue Doppler of septal and lateral mitral anulus averages 7-1/2 cm. Pulse wave Doppler of pulmonary venous flow shows predominance of the diastolic component. The diastolic function is probably normal. The aortic valve shows normal opening of the cusps. Color flow mapping unremarkable. There is no stenosis. There is no pericardial effusion, masses, or thrombus. Pacemaker leads are present in the right-sided chambers. SUMMARY: This study showed: 1. Probably mildly impaired left ventricular systolic function. Ejection fraction estimated at 45% with segmental wall motion abnormality, especially at the level of the inferior wall, although again, in some views the left ventricular function appears to be nearly normal, but the inferior wall is really impaired in the apical two-chamber. 2. Moderately severe degree of mitral regurgitation. 3. Diastolic function is probably normal. 4. Mild degree of pulmonary hypertension in the order of 43 to 48%. 5. Clinical correlation is strongly recommended. cc: MD Eladio Mello CRNP
[2016-05-30 18:11] LABS: CK INDEX 4.2 (0.0-2.5); CK-MB 31.49 ng/mL (0.0-5.0)
[2016-05-30] MEDS: LIPITOR PO SCH (20:22)
--- NOTE | 2016-05-31 02:32 | CONSULTATION ---
DATE OF CONSULTATION: 05/30/2016 SUBJECTIVE: Bgklz-lagll-mscu-old female patient of Dr. Mata, established patient of Dr. Mata and also established patient of Dr. Watkins, presented to the Emergency Room Department yesterday at about 5:00 p.m. with complaints of several days of increasing tightness in the chest, increasing dyspnea, discomfort. She started having a lot of chest pains the day prior to admission, and eventually she decided to come in for evaluation. Upon presentation, they did an EKG that shows nonspecific ST changes with sinus rhythm. Subsequent EKGs showed just about the same, nonspecific T-wave change in the lateral leads with a septal scar. They have done a number of blood tests, and she has elevation of her CPK, 787, 735, 705. CK-MB fraction is 67.66, 46.12, 41. Troponins are positive at 2.040, 2.240, and 0.241. ProBNP is 20,000. This is consistent with myocardial infarction, probably [id number] complicated by congestive heart failure, probably systolic and diastolic dysfunction. The patient has been given morphine. She is feeling a little better this morning; however, she is still having some chest pain. PAST MEDICAL HISTORY: Positive for severe coronary heart disease. Back in 2004, she underwent heart catheterization that showed total occlusion of right coronary artery and thrombosis of the LAD. At that time, she underwent successful thrombectomy with angioplasty of subacutely thrombosed LAD 03/11/2004. This was 12 years ago. She was found to have significant left ventricular dysfunction. She was given AICD for prophylaxis of sudden . She actually suffered ventricular fibrillation cardiac arrest. She has hypertension, hyperlipidemia. She has peripheral neuropathy. She has peripheral occlusive vascular disease. Lately she has some renal dysfunction. Her BUN and creatinine are elevated at the time of this admission. Creatinine is 1.7 and 2.1. That leads to a calculated GFR of 31. That would be chronic kidney disease 3 bordering into 4. PAST SURGICAL HISTORY: The patient's surgical history includes back surgery, hysterectomy, AICD implantation. SOCIAL HISTORY: She lives by herself, . She has three grownup children. She still smokes one to two packs of cigarettes a day. FAMILY HISTORY: Positive for coronary heart disease in father and grandmother. HOME MEDICATIONS: Her home medications at the time of this admission included the following: She is taking Bactrim one tablet twice daily. Xarelto 15 mg daily; however, she states that she has not taken it in the past two weeks. Potassium chloride 20 mEq twice a day, multivitamins daily, Robaxin 500 twice a day, ibuprofen 800 three times a day, furosemide 40 daily, buprenorphine/naloxone 8 mg twice a day, fluticasone/salmeterol, Advair Diskus 250/50 daily. ALLERGIES: Meperidine. REVIEW OF SYSTEMS: Chronically short of breath, chronic pain in the back, chronic claudication. The last heart catheterization that was performed on her was done by Dr. Meagan Spring at this hospital back in May of 2013. At that time, he found 20% left main stenosis, 100% right coronary stenosis. LAD had 40% stenosis at the stent. Circumflex had diffuse 30% in-stent restenosis. Echocardiogram 02/16/2014 showed preserved ejection fraction. Lexiscan myocardial scan in April of 2013 showed inducible ischemia, significant degree involving apical anterior portion of left ventricle, focal defect. In addition, more extensive inferior wall defect of mild severity indicating ischemia of the inferior wall. Ejection fraction was preserved. Arterial Doppler of the lower extremities has been done in 2014, and it was normal. 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 PHYSICAL EXAMINATION: Vital signs: Today, blood pressure is 84/57, temperature 99.1, pulse 91, respirations 21. She is awake, alert, oriented, in no distress, chronically ill. HEENT: She does have cervical bruits bilaterally. Chest: Chest shows diminished breath sounds diffusely. Heart sounds are regular, rhythmic. I do not hear a gallop. I do not hear any obvious murmur. Abdomen: Diffusely tender in the hypogastric area. Extremities: Extremities show multiple skin mckoy, discoloration. Skin is somewhat cold, and pulses are markedly diminished in the lower extremities. Neurologic exam: She follows commands. Moves four extremities. LABORATORY: Her hemoglobin is 11.8, white count 15,480, hematocrit 36.8. sodium 143, potassium 4.5, BUN 29, creatinine 2.1. Triglycerides 182, cholesterol 199, LDL 138, HDL 36. IMPRESSION: 1. Patient presenting with chest pain suspicious for non-Q-wave myocardial infarction based on the elevation of cardiac enzymes. 2. Abnormal electrocardiogram. 3. History of severe multivessel coronary artery disease, previous multiple stents to left anterior descending and circumflex. 4. History of automatic implantable cardioverter-defibrillator implantation for ventricular fibrillation. 5. Persistent tobacco abuser. 6. Chronic obstructive pulmonary disease. 7. Chronic back pain. 8. Chronic pain syndrome. RECOMMENDATIONS: At this point in time, we really have to treat her as an acute myocardial infarction. We will ask the nurses to check pressure in both arms because one of them probably has a severe subcutaneous stenosis. They should probably check pressure in the leg also. We will initiate therapy with Lovenox, continue aspirin, cholesterol-lowering medications, and further intervention will depend on her clinical course. We may have to pursue a heart catheterization at some point; however, we need to stabilize her situation first. Thank you for the opportunity to participate in her evaluation. Best regards. cc: Duncan Gross MD
[2016-05-31] MEDS: LOPRESSOR PO SCH ×4 (02:36→20:21)
[2016-05-31] MEDS: ZITHROMAX 500 MG/NS 500 MG/250 ML IVPB IV SCH (02:36)
[2016-05-31] MEDS: ZOFRAN IV PRN ×2 (02:36→08:27)
[2016-05-31] MEDS ORDERED: MILK OF MAGNESIA PO ONE (02:54)
[2016-05-31] MEDS: TYLENOL PO PRN ×4 (03:05→20:22)
[2016-05-31] MEDS: DUONEB (A & A) INH SCH ×4 (03:29→19:39)
[2016-05-31] MEDS: CAPOTEN PO SCH ×3 (05:38→20:21)
[2016-05-31] MEDS: LOVENOX SUBQ SCH (08:18)
[2016-05-31] MEDS: ASPIRIN PO SCH (08:18)
[2016-05-31] MEDS: SUBOXONE 8 MG/2 MG SL SCH ×2 (08:27→20:20)
--- NOTE | 2016-05-31 08:31 | EKG Report ---
Test Performed on : 05/31/2016 08:02:26 AM Test Reason : MN Blood Pressure : / mmHG Vent. Rate : 067 BPM Atrial Rate : 067 BPM P-R Int : 174 ms QRS Dur : 098 ms QT Int : 426 ms P-R-T Axes : 023 097 -43 degrees QTc Int : 450 ms Normal sinus rhythm. Rightward axis Low voltage QRS Septal infarct (cited on or before 26-MAY-2013) Abnormal ECG When compared with ECG of 30-MAY-2016 07:05, No significant change was found Confirmed by John EDMONDSON, Chris Dias ([id number]) on 05/31/2016 5:48:47 PM
--- NOTE | 2016-05-31 08:32 | PROGRESS NOTE ---
DATE: 05/31/2016 CHIEF COMPLAINT: Chest pain, shortness of breath. SUBJECTIVE: Mrs. Silva says that her chest discomfort has improved. She is still short of breath. She has been complaining of abdominal discomfort that appears to relate to constipation. After having a bowel movement, she feels more relieved. PHYSICAL EXAMINATION: Vital signs: Blood pressure 101/51, this pressure checked on the right leg. Temperature 97.7, pulse 65, respirations 18. General: She is awake, alert, follows commands. HEENT: Unremarkable. Chest: Diminished breath sounds with occasional scattered rhonchi and some crepitance. Cardiac: Heart sounds are regular and rhythmic, no gallop or murmur is noted. Abdomen: Slightly distended, nontender. Extremities: Decreased pulses, no edema. Neurological: She moves four extremities, follows commands. Pulses are diminished. IMPRESSION: 1. Patient who presented with increasing chest pain. The patient has laboratory evidence of myocardial infarction based on elevation of CPK and troponins. Her EKG is also abnormal. 2. History of severe coronary heart disease, previous stents. 3. Chronic obstructive pulmonary disease. 4. Chronic pain syndrome, chronic back pain. 5. Constipation. 6. Chronic kidney disease. 7. Persistent tobacco user. RECOMMENDATION: At this point in time, we will continue a conservative approach with enoxaparin, Capoten, metoprolol. She is on atorvastatin. We will observe her course in the hospital over the next 2 or 3 days. We will consider a heart catheterization for her to define her coronary anatomy, depending on her clinical course and including the status of her renal function. I may consider doing a resting gated MPI study for further evaluation. At this point in time, probably the best thing to do is just be as conservative as we can as long as she responds to that type of approach. We will follow her closely. cc: MD JOSE Mello
[2016-05-31 09:01] LABS: ALBUMIN 3.3 g/dL (3.5-5.0); CALCIUM 7.7 mg/dL (8.8-10.2); CK INDEX 3.6 (0.0-2.5); CK-MB 25.22 ng/mL (0.0-5.0); POTASSIUM 5.3 mmol/L (3.5-5.1)
--- NOTE | 2016-05-31 09:42 | PROGRESS NOTE ---
DATE: 05/31/2016 SUBJECTIVE: Ms. Silva states she is still hurting, mainly in her shoulders and back, not as much chest pain. She would like her muscle relaxer. She is also concerned that she is not getting her Lasix and could have some swelling. She said, last time she had a stress test, she got very nauseated so she is concerned about her cardiac stress test today. OBJECTIVE: Vital signs: She remains afebrile. Temp 97.7 degrees. Pulse 65. Respirations 18. Blood pressure 101/51. HEENT: Pupils are equal, round. Lungs: Clear in all lung olea. Cardiovascular: Regular rhythm and rate without murmur or S3. Abdomen: Soft. Skin: Warm and dry. Intake and Output: Urine output appears to be about 700 mL. LABORATORY DATA: Her lab from yesterday reviewed. White count was 15,480. Hematocrit 36. Platelet count 179,000. Chemistry: Sodium this morning 133, potassium 5.3, chloride 94, BUN 53, creatinine 4.1. Troponins have been climbing at 2.240, 3.06, 4.43. CPK 743 and 710. EKG from this morning: Normal sinus rhythm, rightward axis, low voltage, poor R-wave progression anterior lateral leads. Renal ultrasound done yesterday: Bilateral pleural effusions, normal exam of kidneys. IMPRESSION: 1. Acute kidney injury on chronic kidney disease. Patient has been taking Bactrim Double Strength. She has also been on nonsteroidal anti-inflammatories for the last 3 days with Lasix. This appears to be multifactorial. She, apparently, is not much off her baseline from 2014. She continues to have some hypotension. Evaluating her for cardiac ischemia. It looks like she has a [id number] [place]. 2. Congestive heart failure, bilateral pleural effusions. 3. Electrolytes appear stable. 4. Acid-base balance is stable. 5. Neck and chest wall pain. PLAN: Myocardial perfusion test today. She had presented with increased chest pain, laboratory evidence of myocardial infarction based on the elevation of CPK and troponin, history of severe coronary artery disease. We will put her back on her muscle relaxer. It is a complicated case. They are going to do a myocardial perfusion scan today. She is requesting some Lasix but will discuss with Cardiology. Presently, she is getting fluids, normal saline at 50 mL an hour. She is on captopril 6.25 mg q.8 hours, getting Lovenox 100 mg subcutaneously q.24 hours, Lopressor 12.5 q.6 hours, Lipitor 40 mg at bedtime, and aspirin 325 mg a day. Looking at her home medications, I think the muscle relaxer she was on was Robaxin 500 mg b.i.d. and I will restart that. cc: Anselmo Diaz MD
[2016-05-31] MEDS: ROBAXIN PO PRN ×2 (14:33→20:21)
--- NOTE | 2016-05-31 15:01 | PROGRESS NOTE ---
DATE: 05/31/2016 SUBJECTIVE: She states she is not feeling well today. Some shortness of breath and her muscle soreness has not improved. OBJECTIVE: Vital Signs: Blood pressure 98/56, heart rate 73, respirations 20, afebrile. Intake 100 mL. Output 200 mL. General: No acute distress. Skin: Warm and dry with multiple bruises and shallow ulcers. Neck: Neck veins are not distended. Trachea is midline. Eyes: Pupils are equal. Heart: Regular without gallops or murmurs. Lungs: Have equal breath sounds. No crackles. Abdomen: Soft, nontender. Bowel sounds are present. Extremities: Have trace edema. No clubbing or cyanosis. LABORATORY DATA: Sodium 133, potassium 5.3, chloride 94, bicarbonate 28, BUN 53, creatinine 4.1. Hemoglobin 11.8. IMPRESSION: Acute kidney injury. Her creatinine is rising in an anephric pattern. Her urine studies were more suggestive of prerenal pattern but she does have significant proteinuria. Her abdominal imaging performed yesterday at 9 a.m. has normal kidney structure and no urologic obstruction. She does not have acute indications for dialysis. We will continue to follow daily. No changes are required today. cc: Raymond Jennings MD
[2016-05-31] MEDS: LIPITOR PO SCH (20:21)
[2016-06-01] MEDS: DUONEB (A & A) INH SCH ×5 (01:29→19:01)
[2016-06-01] MEDS: ZITHROMAX 500 MG/NS 500 MG/250 ML IVPB IV SCH (03:34)
[2016-06-01] MEDS: TYLENOL PO PRN (03:34)
[2016-06-01] MEDS: LOPRESSOR PO SCH ×4 (03:34→20:22)
[2016-06-01] MEDS: ZOFRAN IV PRN ×2 (03:36→23:46)
[2016-06-01] MEDS: CAPOTEN PO SCH ×2 (04:50→13:28)
[2016-06-01] MEDS ORDERED: MIRALAX PO ONE (06:04)
[2016-06-01] MEDS ORDERED: PHENERGAN IV ONE (06:05)
[2016-06-01] MEDS ORDERED: SODIUM CHLORIDE 0.9% INJ ONE (06:05)
[2016-06-01 06:31] LABS: ALBUMIN 3.3 g/dL (3.5-5.0); CALCIUM 8.2 mg/dL (8.8-10.2); POTASSIUM 5.7 mmol/L (3.5-5.1)
[2016-06-01 06:44] LABS: CK INDEX 3.6 (0.0-2.5); CK-MB 17.52 ng/mL (0.0-5.0)
[2016-06-01] MEDS: ASPIRIN PO SCH (09:28)
[2016-06-01] MEDS: LOVENOX SUBQ SCH (09:28)
[2016-06-01] MEDS: PERICOLACE PO SCH ×2 (09:28→20:22)
[2016-06-01] MEDS: SUBOXONE 8 MG/2 MG SL SCH ×2 (09:28→20:22)
--- NOTE | 2016-06-01 11:24 | PROGRESS NOTE ---
DATE: 06/01/2016 SUBJECTIVE: She is sitting up on the side of the bed, states that her chest is not hurting as bad. She hurts in her shoulders and the back of her neck. She states that her lower abdomen is uncomfortable. Breathing comfortably. OBJECTIVE: Vital signs: Temp 97. Remains afebrile. Pulse 114 this morning, but pulse has been ranging in the 65 to 90 range. Blood pressure 95/48. Lungs: With end-expiratory wheezing. Cardiovascular: Regular rhythm and rate without murmur or S3. Abdomen: Soft. Skin: Warm and dry. Her urine output was 1000 mL. LAB: Reviewed from the 6th: White count is still a little elevated at 15,480, hematocrit 36, platelet count 179,000. Sodium 133, potassium 5.7, chloride 95, BUN 74, creatinine 4.9. CPK: The series was 710 and 492 with troponin 4.43 and then 4.86. Albumin 3.3. ASSESSMENT AND PLAN: 1. Patient who presented with increasing chest pain. Had laboratory evidence of myocardial infarction based on elevation of the CPK and troponins. EKG is normal. Continue current therapy. 2. History of severe coronary artery disease, previous stents. Aware. 3. Chronic obstructive pulmonary disease, obstructive airway disease, some wheezing still. Continue bronchodilators. Continue to watch her volume closely. She is on azithromycin. She is getting albuterol treatments. 4. Chronic pain syndrome, neck and shoulders and back, and she is on her Robaxin. She is getting her buprenorphine, which I believe is 8-2 one sublingual twice a day. 5. Chronic kidney disease, acute kidney injury, continues to be rising in an anephric pattern. Dr. Jennings following her urine studies, suggested prerenal failure but she does have significant proteinuria. Her abdominal imaging has normal kidney structure and no urologic obstruction. Continue present fluids. Continue to watch. REVIEW OF HER MEDICATION: She is on azithromycin 500 mg IV q.24 h., , docusate one b.i.d., polyethylene glycol 17 g daily, Lopressor 12.5 mg q.6 h., Robaxin 500 mg b.i.d. p.r.n., fluticasone/salmeterol inhaler 2 puffs daily, Lovenox 100 mg subcutaneous q.24 h., Capoten or captopril 6.25 mg p.o. q.8 h., buprenorphine/naloxone or Suboxone 8-2 sublingual b.i.d., Lipitor 40 mg at bedtime, aspirin 325 mg a day. cc: Anselmo Diaz MD
--- NOTE | 2016-06-01 13:47 | PROGRESS NOTE ---
DATE: 06/01/2016 SUBJECTIVE: She continues to have episodic chest discomfort. In addition, she has multiple arthralgias occurring throughout the day. None of her symptoms have been exertional. PHYSICAL EXAMINATION: Vital signs: She is afebrile. Heart rate is 73, blood pressure 92/66. General: She is in no acute distress. Cardiovascular: She sounds to be in a regular rate and rhythm. She has no obvious murmurs. Trace lower extremity edema. Chest: Exam sounds clear to auscultation bilaterally. No increased work of breathing. Abdomen: Soft and nontender. PERTINENT DATA: Sodium 133, potassium 5.7; that is up from 5.3 yesterday. BUN and creatinine are 74 and 4.9 which continue to rise from 53 of 4.1 yesterday. Her troponin today is 4.86 which is up from 4.43 the day before. ASSESSMENT: 1. Acute kidney injury. 2. Fyp-CB-eovwqqlag myocardial infarction. PLAN: We will continue patient on current medications. Again, Dr. Gross is intending cardiac catheterization in the early portion of next week. However, her renal function is certainly an issue right now. Nephrology is currently following the patient. Will continue current medications for the time being. cc: Jonas Granger MD
[2016-06-01] MEDS ORDERED: HEPARIN 25,000 UNITS/D5W 25,000 UNIT/250 ML IV.SOLN IV SCH (15:00)
--- NOTE | 2016-06-01 15:01 | PROGRESS NOTE ---
DATE: 06/01/2016 SUBJECTIVE: She had an episode last night of pain in the neck and back associated with diaphoresis and lasted for about an hour. No further episodes this morning. No shortness of breath, nausea or vomiting. OBJECTIVE: Vital Signs: Blood pressure 92/66, heart rate 73, respirations 14, afebrile. Intake 1 L, output 500 mL. General: No acute distress. Skin: Warm and dry. Conjunctivae are pink. Neck: Neck veins are not visible in the erect position. Heart: Regular without gallops. Lungs: Have equal breath sounds. No crackles. Abdomen: Soft, nontender. Bowel sounds present. Extremities: Have 1+ edema. No clubbing or cyanosis. LABORATORY DATA: Sodium 133, potassium 5.7, chloride 95, bicarbonate 19, BUN 74, creatinine 4.9, hemoglobin 11.8. IMPRESSION: 1. Acute kidney injury. Acute tubular necrosis. I counseled her regarding the nature and severity of her illness. She has progressively rising numbers but no acute indications for dialysis. It is very possible that she will require dialysis within the next 24-48 hours. She was counseled regarding this. She will likely need left heart catheterization because of her rising troponin and her ongoing symptoms. I discussed this directly with her as well as with Dr. Granger today. They will minimize her contrast load if this is required and will dose with Mucomyst starting tomorrow morning. If she does require contrast then of course her risk of worsened acute kidney injury or protracted acute kidney injury is going to be proportionally increased. However, given her unstable cardiac status, certainly erring on the side of evaluating her heart seems to be lowest risk pathway forward. cc: Raymond Jennings MD
[2016-06-01] MEDS: LASIX PO SCH (15:35)
[2016-06-01] MEDS: LIPITOR PO SCH (20:22)
[2016-06-01] MEDS: CALMOSEPTINE OINTMENT TOP PRN (23:46)
[2016-06-01] MEDS: ROBAXIN PO PRN (23:57)
[2016-06-02] MEDS: DUONEB (A & A) INH SCH ×6 (00:05→23:17)
[2016-06-02] MEDS: LOPRESSOR PO SCH ×4 (03:23→20:12)
[2016-06-02] MEDS: ZITHROMAX 500 MG/NS 500 MG/250 ML IVPB IV SCH (03:23)
[2016-06-02] MEDS: TYLENOL PO PRN (03:46)
[2016-06-02] MEDS ORDERED: HEPARIN ONE (05:10)
[2016-06-02 06:31] LABS: ALBUMIN 3.4 g/dL (3.5-5.0); CALCIUM 8.5 mg/dL (8.8-10.2); POTASSIUM 4.9 mmol/L (3.5-5.1)
--- NOTE | 2016-06-02 07:54 | PROGRESS NOTE ---
DATE: 06/02/2016 SUBJECTIVE: Ms. Silva was asleep in her chair and was sleeping well. Head down on her chest. Still pretty miserable. Hurting in her neck and shoulders and suspect the way she is sleeping this may exacerbate that. OBJECTIVE: Vital signs: Temp is 97.7 degrees, pulse 80, respirations 18, blood pressure 130/80. Neck: CVP less than 6 cm. Lungs: Clear in all lung olea. Cardiovascular: Regular rhythm and rate without murmur or S3. Abdomen: Soft. Skin: Warm and dry. Intake and output: Urine output was 1800 mL. LAB: Reviewed. CBC from the 6th, hematocrit is stable at 36. Chemistries from today, sodium 130, potassium 4.9, chloride 92, bicarb 19, BUN 93, creatinine 4.6. CPK is elevated. Troponin elevated to 4.86. ASSESSMENT AND PLAN: 1. Acute kidney injury. Acute tubular necrosis. Creatinine about the same. No acute indications for dialysis at this time. It is possible she may require dialysis is no improvement in next 24-48 hours in renal function. 2. Elevation in troponin and CPK and suspect a cardiac ischemia. She will likely need a study of her coronaries. Will dose her with Mucomyst. Dr. Jennings is planning to dose her Mucomyst today. 3. Chronic obstructive pulmonary disease. The breathing seems to be better, less bronchospasm. Continue bronchodilators and she is on azithromycin. 4. Chronic pain syndrome, mainly in her shoulders, neck, and back. She is on buprenorphine 8-2 sublingual twice a day. I reviewed her orders. I do not see any change at this point. cc: Anselmo Diaz MD
[2016-06-02] MEDS ORDERED: HEPARIN 25,000 UNITS/D5W 25,000 UNIT/250 ML IV.SOLN IV SCH (09:00)
[2016-06-02] MEDS ORDERED: HEPARIN IV ONE ×2 (09:15→18:00)
[2016-06-02] MEDS: MUCOMYST 20% PO SCH ×2 (09:23→20:13)
[2016-06-02] MEDS: PERICOLACE PO SCH ×2 (09:23→20:12)
[2016-06-02] MEDS: ASPIRIN PO SCH (09:24)
[2016-06-02] MEDS: MIRALAX PO SCH (09:24)
[2016-06-02] MEDS: LASIX PO SCH (09:24)
[2016-06-02] MEDS: SUBOXONE 8 MG/2 MG SL SCH ×2 (09:24→20:12)
[2016-06-02 09:42] LABS: MANUAL DIFF NEEDED? NO
[2016-06-02 09:43] LABS: BASO% 0.2 % (0.0-0.8); EOS# 0.06 X1000 (0.0-0.7); EOS% 0.5 % (0.0-10.0); HEMATOCRIT 32.3 % (37.0-47.0); HEMOGLOBIN 10.7 g/dL (12.0-16.0); IMM GRAN# 0.03 X1000 (0.0-0.04); IMM GRAN% 0.3 % (0.0-0.5); LYMPH# 1.13 X1000 (1.2-3.4); LYMPH% 9.9 % (20.5-51.1); MCH 29.7 PG (27-31); MCHC 33.1 g/dL (33-37); MCV 89.7 FL (81-99); MONO% 9.6 % (1.7-9.3); NEUT% 79.5 % (42.2-75.2); PLT 181 X1000 (130-400)
[2016-06-02 09:50] LABS: INR 1.08; PROTIME 11.4 Seconds (9.2-11.7)
--- NOTE | 2016-06-02 13:50 | PROGRESS NOTE ---
DATE: 06/02/2016 SUBJECTIVE: Ms. Silva has not had any episodes of chest pain overnight. She continues to have some discomfort in her back and shoulders. PHYSICAL EXAMINATION: Vital signs: She is afebrile. Heart rate is 78, blood pressure of 130/73. General: She is in no acute distress. Cardiovascular: She sounds to be in a regular rate and rhythm. She has no obvious murmurs. She has trace lower extremity edema. Chest: Exam has some coarse breath sounds heard throughout. No increased work of breathing. Abdomen: Soft, nontender, nondistended. PERTINENT DATA: Her white count is 11.5, hematocrit is 32.3, platelet count 181,000. Sodium 130, potassium 4.9, BUN 93, creatinine 4.6. Previous values were 74 and 4.9 respectively. ASSESSMENT: 1. Tbn-BG-fahjvybad myocardial infarction. 2. Acute kidney injury. PLAN: The patient was discontinued off her captopril as well as Lovenox yesterday secondary to her worsening renal insufficiency. She was switched over to heparin. The patient is not having any ischemic symptoms in the last 24 hours. For now, I will continue on current management hopefully in the future she will have improvement in her renal function and we can consider evaluation with catheterization. cc: Jonas Granger MD
[2016-06-02] MEDS: LIPITOR PO SCH (20:12)
[2016-06-02] MEDS: ZOFRAN IV PRN (20:26)
[2016-06-03] MEDS: TYLENOL PO PRN ×2 (00:03→05:48)
[2016-06-03] MEDS ORDERED: HEPARIN IV ONE (02:21)
[2016-06-03] MEDS: ZITHROMAX 500 MG/NS 500 MG/250 ML IVPB IV SCH (02:37)
[2016-06-03] MEDS: LOPRESSOR PO SCH ×5 (02:37→21:03)
[2016-06-03] MEDS: HEPARIN 25,000 UNITS/D5W 25,000 UNIT/250 ML IV.SOLN IV SCH ×2 (02:37→15:51)
[2016-06-03] MEDS: DUONEB (A & A) INH SCH ×5 (03:08→21:56)
--- NOTE | 2016-06-03 05:51 | EKG Report ---
Test Performed on : 06/02/2016 06:10:06 AM Test Reason : MO Blood Pressure : / mmHG Vent. Rate : 076 BPM Atrial Rate : 076 BPM P-R Int : 186 ms QRS Dur : 098 ms QT Int : 396 ms P-R-T Axes : 021 066 -04 degrees QTc Int : 445 ms Normal sinus rhythm. Low voltage QRS Possible Anterolateral infarct (cited on or before 26-MAY-2013) Abnormal ECG When compared with ECG of 01-JUN-2016 06:23, (Unconfirmed) No significant change was found Confirmed by John EDMONDSON, Chris Dias ([id number]) on 06/03/2016 7:53:17 PM
--- NOTE | 2016-06-03 05:56 | EKG Report ---
Test Performed on : 06/01/2016 06:23:17 AM Test Reason : [place] Blood Pressure : / mmHG Vent. Rate : 067 BPM Atrial Rate : 067 BPM P-R Int : 182 ms QRS Dur : 108 ms QT Int : 436 ms P-R-T Axes : 015 085 -28 degrees QTc Int : 460 ms Normal sinus rhythm. Low voltage QRS Anterolateral infarct (cited on or before 26-MAY-2013) Abnormal ECG When compared with ECG of 31-MAY-2016 08:02, No significant change was found Confirmed by John EDMONDSON, Chris Dias ([id number]) on 06/03/2016 7:48:15 PM
[2016-06-03 06:17] LABS: ALBUMIN 3.2 g/dL (3.5-5.0); CALCIUM 8.6 mg/dL (8.8-10.2)
[2016-06-03 06:26] LABS: BASO% 0.2 % (0.0-0.8); EOS# 0.08 X1000 (0.0-0.7); EOS% 0.6 % (0.0-10.0); HEMATOCRIT 30.9 % (37.0-47.0); HEMOGLOBIN 10.2 g/dL (12.0-16.0); IMM GRAN# 0.07 X1000 (0.0-0.04); IMM GRAN% 0.5 % (0.0-0.5); LYMPH# 1.79 X1000 (1.2-3.4); LYMPH% 13.9 % (20.5-51.1); MANUAL DIFF NEEDED? YES; MCH 29.5 PG (27-31); MCV 89.3 FL (81-99); MONO# 1.32 X1000 (0.11-0.59); MONO% 10.3 % (1.7-9.3); MPV 12.3 FL (7.4-10.4); NEUT% 74.5 % (42.2-75.2); PLT 186 X1000 (130-400); RBC 3.46 XMIL (4.2-5.4)
--- NOTE | 2016-06-03 06:57 | EKG Report ---
Test Performed on : 06/03/2016 06:42:41 AM Test Reason : OR Blood Pressure : / mmHG Vent. Rate : 066 BPM Atrial Rate : 066 BPM P-R Int : 182 ms QRS Dur : 098 ms QT Int : 422 ms P-R-T Axes : 031 074 003 degrees QTc Int : 442 ms Normal sinus rhythm. Low voltage QRS Cannot rule out Anteroseptal infarct (cited on or before 26-MAY-2013) Poor R-wave progression Abnormal ECG When compared with ECG of 02-JUN-2016 06:10, (Unconfirmed) No significant change was found Confirmed by John EDMONDSON, Chris Dias ([id number]) on 06/03/2016 8:02:33 PM
[2016-06-03 07:11] LABS: BANDS 2 % (0-1); LYMPHS 16 % (21-51); MONO 8 % (1-9)
[2016-06-03] MEDS: SUBOXONE 8 MG/2 MG SL SCH ×2 (08:05→21:01)
[2016-06-03] MEDS: ASPIRIN PO SCH (08:05)
[2016-06-03] MEDS: MUCOMYST 20% PO SCH ×2 (08:05→21:02)
[2016-06-03] MEDS: MIRALAX PO SCH (08:06)
[2016-06-03] MEDS: PERICOLACE PO SCH ×2 (08:06→21:02)
[2016-06-03] MEDS: LASIX PO SCH (08:06)
[2016-06-03] MEDS ORDERED: DULCOLAX PR PRN (08:14)
--- NOTE | 2016-06-03 08:48 | PROGRESS NOTE ---
DATE: 06/03/2016 CHIEF COMPLAINT: Shortness of breath and chest pain. SUBJECTIVE: Ms. Silva has developed acute renal failure. Her BUN and creatinine have crept up to 108 and 4.2. The highest creatinine was 4.9 a couple of days ago. This is acute renal failure. She says that her breathing is still not normal but it is better. She is not having any chest pain. OBJECTIVE: Vital signs: Blood pressure is 112/64, temperature 98 degrees, pulse 69, and respirations 20. General: She is awake, alert, oriented, chronically ill, and somewhat tachypneic. Respiratory: Chest shows diminished breath sounds at the bases. Cardiac: Heart sounds are regular and rhythmic. I do not hear any gallop or murmur. The heart sounds are very distant. Abdomen: The abdomen is obese and nontender. Extremities: The extremities show markedly diminished pulses. Neurological: She follows commands and move all four extremities. LABORATORY DATA: Her white count is 12,860, hemoglobin 10.2, and hematocrit 30.9. BUN is 103, creatinine 4.2, sodium 133, potassium 5, chloride 95, and carbon dioxide 18. IMPRESSION: 1. Patient with acute coronary syndrome non-ST myocardial infarction on top of severe coronary artery disease. 2. Acute renal failure on top of chronic. 3. Peripheral occlusive arterial vascular disease. 4. History of being a heavy smoker for a long time. RECOMMENDATIONS: At this point in time we will continue supportive therapy. The patient unfortunately right now is not a candidate for invasive cardiac evaluation given her acute renal failure. We will have to wait until this stabilizes or the decision is made to administer hemodialysis. At any rate, from a cardiac viewpoint I would continue low dose beta blockers, aspirin, and cholesterol lowering medications and try to maintain her as euvolemic as we can. We will follow her. Unfortunately her prognosis with acute renal failure on top of a coronary syndrome is not good. cc: Duncan Gross MD
--- NOTE | 2016-06-03 09:04 | PROGRESS NOTE ---
DATE: 06/03/2016 SUBJECTIVE: Ms. Silva feels better. Her back, shoulder, and neck feel a little better. Breathing comfortably. No chest pain. Has not had a bowel movement so I will try to give her some milk of magnesia. PHYSICAL EXAMINATION: Vital Signs: Temperature 98 degrees, pulse 69, respirations 20, blood pressure 112/64. HEENT: Pupils are equal and round. CVP less than 6 cm. Lungs: Clear in all lung olea. Cardiovascular Examination: Regular rhythm and rate without murmur or S3. Is and Os: Urine output 375 mL. LAB: From this morning, white count of 12,860, hematocrit 30, and platelet count 186,000. Sodium 133, potassium 5, chloride 95, BUN 108, creatinine 4.2 so creatinine may be coming down. ASSESSMENT AND PLAN: 1. Severe coronary artery disease, oph-YJ-mxrbktfpe myocardial infarction, appears to be recovering. 2. Acute kidney injury, acute tubular necrosis. Making some urine. Creatinine hopefully is starting to come down. Dr. Jennings following. Electrolytes appear to be stable. 3. Musculoskeletal pain in the neck and shoulders. Seems to be better today. 4. Chronic obstructive pulmonary disease. Less bronchospasm. She is on azithromycin. 5. Chronic pain syndrome. Aware. She is buprenorphine 8-2 sublingual twice a day. 6. Blood sugars 213, 169, and 204 so underlying diabetes mellitus type 2. 7. Reviewed her orders. I do not see anything to change at this point. cc: Anselmo Diaz MD
--- NOTE | 2016-06-03 11:05 | PROGRESS NOTE ---
DATE: 06/03/2016 SUBJECTIVE: Patient is sitting up in a chair. She is awake and alert and is in no acute distress. She denies any chest pain. OBJECTIVE: Vital Signs: Temperature 98 degrees, pulse 69, respiratory rate 20 , blood pressure 112/64. Intake and output 760 mL. Output 375. This is void, unclear if all voids were measured. General: This is a middle-aged female who appears older than her stated age sitting up in a chair. She is awake and alert. HEENT: Normocephalic. Atraumatic. Oral mucosa is moist. Neck: Supple. Trachea midline. There is no JVD noted. Cardiovascular: Regular rate and rhythm. No murmur or gallop is appreciated. Pulmonary: She has equal excursion. She is clear bilaterally with some decreased breath sounds to the bases. She is on 2 L nasal cannula. Abdomen: Soft, with positive bowel sounds. Genitourinary: Not inspected. Extremities: No clubbing, cyanosis or edema. She is moving all extremities and is ambulatory with minimal assistance. Integumentary: Skin is warm and dry without rash or lesion. LABORATORY DATA: WBC of 12.8, sodium 133, potassium 5, CO2 18 creatinine 4.2. ASSESSMENT AND PLAN: 1. Acute on chronic kidney disease. It appears her creatinine has improved over the last couple of days. We will make no changes today. Continue to monitor. 2. Acute coronary syndrome non-ST myocardial infarction. Followed by primary and Cardiology. 3. Electrolytes, acid-base balance, anemia. These are all stable. 4. Hypertension currently controlled. Seen, data reviewed, discussed with Levon Denise on 06/03/16. I agree with the above assessment and plan of care. rg Dictated by PEPE Michele for Raymond Jennings MD cc: Raymond Jennings MD [facility]
[2016-06-03] MEDS: LACTULOSE PO SCH ×2 (11:52→21:03)
[2016-06-03] MEDS: ZOFRAN IV PRN ×2 (11:52→21:18)
[2016-06-03] MEDS: ADVAIR 250/50 DISKUS INH SCH (12:03)
[2016-06-03] MEDS: LIPITOR PO SCH (21:03)
[2016-06-03] MEDS: PROTONIX IV SCH (23:15)
[2016-06-04] MEDS: ZITHROMAX 500 MG/NS 500 MG/250 ML IVPB IV SCH (02:51)
[2016-06-04] MEDS: LOPRESSOR PO SCH ×4 (02:51→20:16)
[2016-06-04] MEDS: DUONEB (A & A) INH SCH ×5 (02:56→19:21)
[2016-06-04] MEDS: ZOFRAN IV PRN ×2 (03:50→10:59)
[2016-06-04] MEDS: HEPARIN 25,000 UNITS/D5W 25,000 UNIT/250 ML IV.SOLN IV SCH ×2 (06:56→20:14)
[2016-06-04 07:34] LABS: CALCIUM 8.9 mg/dL (8.8-10.2); POTASSIUM 4.7 mmol/L (3.5-5.1)
[2016-06-04 07:40] LABS: NEUT% 81.5 % (42.2-75.2)
[2016-06-04 07:42] LABS: BASO% 0.2 % (0.0-0.8); EOS# 0.04 X1000 (0.0-0.7); EOS% 0.3 % (0.0-10.0); HEMATOCRIT 30.5 % (37.0-47.0); HEMOGLOBIN 9.9 g/dL (12.0-16.0); IMM GRAN# 0.09 X1000 (0.0-0.04); IMM GRAN% 0.7 % (0.0-0.5); LYMPH# 1.12 X1000 (1.2-3.4); LYMPH% 8.6 % (20.5-51.1); MANUAL DIFF NEEDED? YES; MCH 28.9 PG (27-31); MCHC 32.5 g/dL (33-37); MCV 89.2 FL (81-99); MONO# 1.14 X1000 (0.11-0.59); MONO% 8.7 % (1.7-9.3); MPV 12.3 FL (7.4-10.4); PLT 187 X1000 (130-400); RBC 3.42 XMIL (4.2-5.4)
[2016-06-04] MEDS ORDERED: HEPARIN IV ONE (07:48)
[2016-06-04] MEDS ORDERED: HEPARIN 25,000 UNITS/D5W 25,000 UNIT/250 ML IV.SOLN IV SCH ×2 (07:53→08:09)
[2016-06-04 08:05] LABS: LYMPHS 8 % (21-51); MONO 6 % (1-9)
[2016-06-04] MEDS: ASPIRIN PO SCH (08:10)
[2016-06-04] MEDS: SUBOXONE 8 MG/2 MG SL SCH ×2 (08:10→20:17)
[2016-06-04] MEDS: LASIX PO SCH (08:10)
[2016-06-04] MEDS: MIRALAX PO SCH (08:11)
[2016-06-04] MEDS: PERICOLACE PO SCH ×2 (08:11→20:17)
[2016-06-04] MEDS: LACTULOSE PO SCH ×2 (08:13→20:15)
--- NOTE | 2016-06-04 09:08 | PROGRESS NOTE ---
DATE: 06/04/2016 SUBJECTIVE: She had problems with her bowels last night. No more problems with chest discomfort or diaphoresis. No shortness of breath. OBJECTIVE: Vital Signs: Blood pressure 117/82, heart rate 44, respiration 19, afebrile. Intake 2 L; output 2.9 L. General: On physical exam, no acute distress. Skin: Warm and dry. Eyes: Conjunctivae are pink. Neck: Neck veins are not distended. Heart: Regular. Lungs: Have equal breath sounds. No crackles. Abdomen: Soft, nontender. Bowel sounds present. Extremities: Have no edema, clubbing, or cyanosis. LABORATORY DATA: Sodium 133, potassium 4.7, chloride 95, bicarbonate 15, BUN 128, creatinine 3.6. IMPRESSION: 1. Acute kidney injury. Slow improvement. BUN is rising, however. We will add normal saline 75 mL an hour. 2. Electrolytes are acceptable. 3. Acid-base. Her serum bicarbonate has fallen modestly over the last 4 days and her anion gap is 23. I presume this is related to her renal disease. We will check serum acetone just for completeness. cc: Raymond Jennings MD
[2016-06-04] MEDS: NS 1,000 ML IV SCH ×2 (09:19→20:15)
[2016-06-04] MEDS: ADVAIR 250/50 DISKUS INH SCH (09:39)
--- NOTE | 2016-06-04 10:14 | PROGRESS NOTE ---
DATE: 06/04/2016 SUBJECTIVE: Ms. Silva apparently had some nose bleeding last night but had a better night overall. Shoulders and neck are less painful. Breathing comfortably. PHYSICAL EXAMINATION: Vital Signs: Temperature 98.5 degrees, pulse 44, respirations 19, blood pressure 117/82. HEENT: Pupils are equal and round. CVP less than 6 cm. Lungs: Clear anterior, lateral, and posterior. Cardiovascular Examination: Regular rhythm and rate without murmur or S3. Is and Os: Urine output appears to be over 2 L. LAB: From this morning, white count 13,070, hematocrit was 30, platelet count 187,000. Encouraging, her creatinine is down to 3.6, BUN 128, sodium 133, potassium 4.7, chloride 95, bicarb 15. Albumin 3. ASSESSMENT AND PLAN: 1. Acute kidney injury. Acute atubular necrosis suspected. The BUN rising; however, creatinine seems to be coming down. Getting normal saline at 75 mL an hour. Pretty good urine output. 2. Electrolytes acceptable. 3. Acid-base. Bicarbonate has modestly fallen in the last several days and her anion gap is 23. This is related probably to her renal disease. Dr. Jennings is following. He is going to check her acetone. 4. Cardiac ischemia with non-ST segment myocardial infarction. She will need a heart catheterization if renal function improves. Still may need dialysis. Continue to follow. cc: Anselmo Diaz MD
[2016-06-04] MEDS: PROTONIX IV SCH ×2 (10:59→23:56)
[2016-06-04] MEDS: SODIUM CHLORIDE 0.9% INJ SCH ×2 (10:59→23:56)
[2016-06-04] MEDS: LIPITOR PO SCH (20:15)
[2016-06-05] MEDS: LOPRESSOR PO SCH ×4 (03:01→21:01)
[2016-06-05] MEDS: ZOFRAN IV PRN (03:02)
[2016-06-05] MEDS: ZITHROMAX 500 MG/NS 500 MG/250 ML IVPB IV SCH (03:02)
[2016-06-05] MEDS: DUONEB (A & A) INH SCH ×6 (03:19→22:35)
[2016-06-05 05:16] LABS: BASO% 0.1 % (0.0-0.8); EOS# 0.15 X1000 (0.0-0.7); HEMOGLOBIN 9.9 g/dL (12.0-16.0); IMM GRAN% 0.7 % (0.0-0.5); LYMPH# 1.65 X1000 (1.2-3.4); LYMPH% 11.2 % (20.5-51.1); MANUAL DIFF NEEDED? YES; MCH 29.6 PG (27-31); MCV 89.6 FL (81-99); MONO# 1.35 X1000 (0.11-0.59); MONO% 9.2 % (1.7-9.3); MPV 11.9 FL (7.4-10.4); NEUT% 77.8 % (42.2-75.2); PLT 183 X1000 (130-400); RBC 3.35 XMIL (4.2-5.4)
[2016-06-05 06:56] LABS: BANDS 8 % (0-1); LYMPHS 12 % (21-51); MONO 6 % (1-9); NRBC 1 % (0-0)
--- NOTE | 2016-06-05 08:05 | PROGRESS NOTE ---
DATE: 06/05/2016 SUBJECTIVE: Ms. Silva states she feels better in her neck and shoulders. No chest pain. No nausea at this time. PHYSICAL EXAMINATION: Vital Signs: Temperature 98.5 degrees, pulse 76, respirations 16, blood pressure 101/58. HEENT: Pupils are equal and round. Lungs: Clear anterior and posterior. Cardiovascular Examination: Regular rhythm and rate without murmur or S3. Abdomen: Soft. Skin: Is warm and dry. Is and Os: Urine output about 6 L so good urine output. LAB: White count 14,720, hematocrit is 30, platelet count 183,000. Chemistry: Sodium 133, potassium 4.7, chloride 95, bicarb 15, BUN 23, creatinine 3.6 to the creatinine is coming down. Phosphorus is 6.6, calcium is 8.9, albumin 3. ASSESSMENT AND PLAN: 1. Acute kidney injury, acute tubular necrosis. Good urine output, appears to be improving and very encouraging. 2. Electrolytes and acid base acceptable. 3. Cardiac ischemia and non ST-segment myocardial infarction. Appears to be healing. Continue present regimen. 4. Review of orders. Still on a heparin drip, on azithromycin 500 mg intravenous every 24 hours. I think we can stop that. Getting fluids at 75 mL normal saline. Protonix 40 mg intravenous every 12 hours, polyethylene glycol 17 g daily, Lopressor 12.5 mg intravenous every 6. She gets Robaxin 500 mg twice a day as needed, lactulose 30 mL by mouth twice a day. She is on Lasix 40 mg by mouth daily, Lipitor 40 mg at bedtime. No change at this time. cc: Anselmo Diaz MD
[2016-06-05 08:49] LABS: ALBUMIN 3.2 g/dL (3.5-5.0); POTASSIUM 4.5 mmol/L (3.5-5.1)
[2016-06-05] MEDS: LASIX PO SCH (09:08)
[2016-06-05] MEDS: ASPIRIN PO SCH (09:08)
[2016-06-05] MEDS: SUBOXONE 8 MG/2 MG SL SCH ×2 (09:08→21:02)
[2016-06-05] MEDS: MIRALAX PO SCH (09:09)
[2016-06-05] MEDS: ADVAIR 250/50 DISKUS INH SCH (09:33)
[2016-06-05] MEDS: NS 1,000 ML IV SCH ×2 (09:42→23:12)
[2016-06-05] MEDS: HEPARIN 25,000 UNITS/D5W 25,000 UNIT/250 ML IV.SOLN IV SCH ×2 (09:43→23:12)
--- NOTE | 2016-06-05 10:04 | PROGRESS NOTE ---
DATE: 06/05/2016 CHIEF COMPLAINT: Shortness of breath and chest discomfort. SUBJECTIVE: Ms. Silva feels like she is doing a little better. She is not as short of breath as she was. She is not having any chest pain. OBJECTIVE: Vital signs: Blood pressure is 92/63, temperature 98.7, pulse 76, and respirations 20. General: The patient is awake, alert, and chronically ill. She does have asterixis. She has some bruises in the arms. She looks pale. HEENT: Questionable prominence of the jugular veins. Chest: Diminished breath sounds. Occasionally some crepitance. Cardiovascular: Heart sounds are regular and rhythmic. I do not hear a gallop or murmur. Abdomen: The abdomen is soft. Extremities: The extremities show no significant edema. Neurological: She moves all extremities. She does have asterixis. Cranial nerves are normal. BLOOD WORK: Her white count is 14,720, hemoglobin 9.9, hematocrit 30%, and platelet count 183,000. Yesterday sodium was 133, potassium 4.7, BUN 128, and creatinine 3.6. Albumin was 3. IMPRESSION: 1. Patient who presented with a non-ST elevation myocardial infarction, a complicated case of severe multivessel coronary artery disease with previous stents. 2. Acute renal failure on top of chronic renal insufficiency. 3. Peripheral occlusive arterial disease. Patient may have renal artery stenosis especially after developing acute renal failure with low dose of MARY ANN inhibitors. 4. Long-term tobacco user. RECOMMENDATION: At this point in time we will continue supportive therapy. Because the patient appears to have uremic encephalopathy manifested by asterixis she might be at a point where dialysis may be necessary. If that is the case, then we might potentially proceed with catheterization within the next 7 days or so. At this time cardiac catheterization will become totally elective and only really needed if she were to develop acute ST segment elevation myocardial infarction. We will follow her along and thank you again for the opportunity to participate in her evaluation. cc: Duncan Gross MD [facility]
--- NOTE | 2016-06-05 10:31 | PROGRESS NOTE ---
DATE: 06/05/2016 SUBJECTIVE: Patient is sitting up on the side of the bed, eating breakfast. She has no complaints. OBJECTIVE: Vital Signs: Temperature 98.5 degrees, pulse 76, respiratory rate 16, blood pressure 101/58. Intake 4.7 L, output 1.1 L. Physical Examination: General: Middle-aged female sitting up on the side of bed. No acute distress. HEENT: Normocephalic, atraumatic. Conjunctivae pink. Neck: Supple. No JVD. Cardiovascular: Regular rate and rhythm. No murmur appreciated. Pulmonary: Equal excursion. She has no wheeze or rhonchi noted and no increased work of breathing. Abdomen : Soft, round. Positive bowel sounds. : Not inspected. Extremities: Trace pretibial edema. There is no clubbing or cyanosis. She has been ambulatory with assistance. Integumentary: Skin is warm and dry. Lab Data: WBC of 14.7, hemoglobin 9.9, platelet count of 183,000. Sodium 134, potassium 4.5, CO2 16, BUN 122, creatinine 2.9, calcium 8, phosphorus 5.1. ASSESSMENT AND PLAN: 1. Acute kidney injury. Her creatinine has continued to slowly improve. Her BUN has continued to rise. Her diuretics were held. She had some gentle intravenous hydration started yesterday. She does not appear to be fluid overloaded and will continue this and monitor labs. 2. Electrolytes, acid-base balance. Bicarbonate continues to fall. Her serum acetone was negative. We will hold sodium bicarbonate today secondary to fluid issues. She does have some swelling but she is not overloaded. Continue to monitor closely. Likely secondary to her acute kidney disease. rg Seen, data reviewed, discussed with Levon Denise on 06/05/16. I agree with the above assessment and plan of care. rg Dictated by PEPE Michele for Raymond Jennings MD cc: Raymond Jennings MD [facility]
[2016-06-05] MEDS: PROTONIX IV SCH ×2 (10:54→23:12)
[2016-06-05] MEDS: SODIUM CHLORIDE 0.9% INJ SCH ×2 (10:54→23:12)
[2016-06-05] MEDS: TYLENOL PO PRN (15:18)
--- NOTE | 2016-06-05 16:19 | Carotid Study ---
DATE: 05/30/2016 PROCEDURE: Carotid duplex study. REFERRING PHYSICIAN: Duncan Gross MD READING PHYSICIAN: Osorio Saenz MD SALES [employer]ING MANAGER: Lincoln INDICATION: Carotid bruit. COMPARISON STUDY: 06/02/2014 OBSERVED DATA RIGHT LEFT Brachial Blood Pressure Carotid Pulse Bruits: Carotid/Sub DIAGRAM OF ULTRASOUND IMAGING R L RIGHT INT EXT INT EXT LEFT Alban (cm/s) Alban (cm/s) Subclavian 70/0 Subclavian 69/0 CCA Proximal 48/19 CCA Proximal 75/22 CCA Distal 68/23 CCA Distal 66/20 Bulb 66/23 Bulb 146/34 ICA Proximal 96/29 ICA Proximal 183/41 ICA Mid 80/30 ICA Mid 106/25 ICA Distal 64/33 ICA Distal 65/22 ECA 68/0 ECA 162/34 Vertebral 43/12 Vertebral 99/17 ICA/CCA Ratio 1.4 ICA/CCA Ratio 2.4 % Stenosis 0 to 39% % Stenosis 60 to 79% FINDINGS: There is some scattered intimal disease in the right common carotid artery and bulb. There is no significant stenosis or ulcerative plaque seen in the right carotid system. There appears to be antegrade vertebral flow on the right. On the left side, again there is intimal disease throughout the left distal common carotid artery. There is calcific plaque in the left bulb extending into the proximal internal carotid artery producing a more significant stenosis. There is antegrade vertebral flow on the left. INTERPRETATION: Intimal disease in the bilateral common carotid arteries. There is calcific plaque in the left proximal internal carotid artery with a corresponding severe stenosis. This is significantly worsened from the prior study on 06/02/2014. In addition, the prior concern for left subclavian occlusion is not supported on this study. cc: MD Duncan Le MD
[2016-06-05] MEDS: LIPITOR PO SCH (21:01)
[2016-06-06] MEDS: LOPRESSOR PO SCH ×4 (02:59→21:43)
[2016-06-06] MEDS: DUONEB (A & A) INH SCH ×4 (03:07→22:35)
[2016-06-06] MEDS: TYLENOL PO PRN (05:12)
[2016-06-06 05:43] LABS: ALBUMIN 2.8 g/dL (3.5-5.0); CALCIUM 8.2 mg/dL (8.8-10.2); POTASSIUM 3.9 mmol/L (3.5-5.1)
[2016-06-06] MEDS: MIRALAX PO SCH (08:15)
[2016-06-06] MEDS: ASPIRIN PO SCH (08:17)
[2016-06-06] MEDS: SUBOXONE 8 MG/2 MG SL SCH ×2 (08:17→21:42)
[2016-06-06] MEDS: LASIX PO SCH (08:17)
--- NOTE | 2016-06-06 08:43 | PROGRESS NOTE ---
DATE: 06/06/2016 SUBJECTIVE: Ms. Silva is feeling a little better, a little stronger. Slept a little better last night. The back and shoulder pain have lessened. No chest pain at this time. PHYSICAL EXAMINATION: Vital Signs: Temperature 97.9 degrees, pulse 70, respirations 12, blood pressure 87/44. HEENT: Pupils are equal and round. Lungs: Clear in all lung olea. Cardiovascular Examination: Regular rhythm and rate without murmur or S3. Is and Os: Urine output 1300 mL. LAB: Reviewed from yesterday, her CBC, chemistries from this morning. Creatinine down to 2.2, very encouraging. Sodium 135, potassium 3.9, chloride 99, BUN was 110, creatinine 2.2, phosphorus 4. Blood sugars 278, 277, 259. ASSESSMENT AND PLAN: 1. Acute kidney injury. Creatinine is improving. Acute atubular necrosis. Very encouraging. Continue present fluids. 2. Electrolytes and acid base. Improved as well. 3. Underlying coronary artery disease. Will need left heart catheterization when renal function will allow. 4. Diabetes mellitus. Blood sugars continue to be above 250. We will adjust her insulin. I have put her on a split sliding scale 70/30 to see if this will help. cc: Anselmo Diaz MD
[2016-06-06] MEDS: HUMULIN 70/30 SUBQ SCH ×3 (09:26→21:42)
[2016-06-06] MEDS: ADVAIR 250/50 DISKUS INH SCH (09:51)
[2016-06-06] MEDS: SODIUM CHLORIDE 0.9% INJ SCH ×2 (10:37→23:51)
[2016-06-06] MEDS: PROTONIX IV SCH ×2 (10:37→23:51)
[2016-06-06] MEDS: NS 1,000 ML IV SCH (12:20)
[2016-06-06] MEDS: HEPARIN 25,000 UNITS/D5W 25,000 UNIT/250 ML IV.SOLN IV SCH (12:23)
--- NOTE | 2016-06-06 15:31 | PROGRESS NOTE ---
DATE: 06/06/2016 SUBJECTIVE: Patient is sitting up on the side of the bed. She has no complaints. OBJECTIVE: Vital Signs: Temperature 98.2 degrees, pulse 75, respiratory rate 12, blood pressure 116/87. Intake 600 mL, output 1.8 L. General: Middle-aged female sitting up on the side of the bed. She is in no acute distress. She is awake, alert, oriented x4. HEENT: Normocephalic, atraumatic. Oral mucosa moist. Neck: Supple. There is no JVD. Cardiac: She has regular rate and rhythm without murmur or gallop. Pulmonary: She has equal excursion. She is clear bilaterally. Abdomen: Soft, with positive bowel sounds. : Not inspected. She is voiding. Extremities: No clubbing, cyanosis. She is ambulatory with assistance. Integumentary: Skin is warm and dry. She has areas of ecchymoses noted. LABORATORY DATA: Sodium 135, potassium 3.9, CO2 19, BUN 110, creatinine 2.2. ASSESSMENT AND PLAN: 1. Acute kidney injury. She continues on normal saline. Gentle IV hydration. She does not appear fluid overloaded. She denies any shortness of breath, chest pain or difficulty breathing. She denies any shortness of breath with ambulation. Her creatinine has continued to improve as her BUN. We will continue to monitor closely. 2. Electrolytes, acid-base balance. CO2 is in target today. We will make no changes. 3. [id number]. Followed by Cardiology. Delay LHC as long as possible to allow optimized risk of further FLORENCE. rg Seen, data reviewed, discussed with Levon Denise on 06/06/16. I agree with the above assessment and plan of care. rg Dictated by PEPE Michele for Raymond Jennings MD cc: Raymond Jennings MD [facility]
[2016-06-06] MEDS: ZOFRAN IV PRN ×2 (15:47→18:11)
[2016-06-06] MEDS ORDERED: INSULIN PEN NEEDLES ONE (21:36)
[2016-06-06] MEDS: LIPITOR PO SCH (21:42)
[2016-06-07] MEDS: NS 1,000 ML IV SCH (00:23)
[2016-06-07] MEDS: HEPARIN 25,000 UNITS/D5W 25,000 UNIT/250 ML IV.SOLN IV SCH ×2 (00:24→14:02)
[2016-06-07] MEDS: LOPRESSOR PO SCH ×4 (03:54→20:44)
[2016-06-07] MEDS: DUONEB (A & A) INH SCH ×4 (04:30→22:43)
[2016-06-07 05:50] LABS: ALBUMIN 2.9 g/dL (3.5-5.0); CALCIUM 8.2 mg/dL (8.8-10.2); POTASSIUM 4.2 mmol/L (3.5-5.1)
[2016-06-07] MEDS ORDERED: HUMULIN 70/30 SUBQ SCH (07:30)
[2016-06-07] MEDS: MIRALAX PO SCH (07:59)
[2016-06-07] MEDS: ASPIRIN PO SCH (08:01)
[2016-06-07] MEDS: LASIX PO SCH (08:01)
[2016-06-07] MEDS: SUBOXONE 8 MG/2 MG SL SCH ×2 (08:02→20:44)
--- NOTE | 2016-06-07 08:50 | PROGRESS NOTE ---
DATE: 06/07/2016 SUBJECTIVE: Ms. Silva feels a little better today. She state her feet feel a little tingly and uncomfortable. She wondered about given a diuretic and I discouraged her from that. I explained that her kidney function is doing much better and would like not to give her any diuretics at this point. OBJECTIVE: Vital Signs: Temp 98.3 degrees, pulse 74, respirations 12, blood pressure 127/93. Lungs: Clear in all lung olea. No distended neck veins. Cardiovascular: Regular rhythm and rate without murmur or S3. Abdomen: Soft. Skin: Warm and dry. : Urine output over 3 L. LABORATORY DATA: Reviewed lab from yesterday. White count was 14,720. Chemistries are reviewed from this morning. Sodium 136, potassium 4.2, chloride 103, bicarb 20, BUN 83, and creatinine down to 1.8. So, continue to have good improvement. Blood sugars 252, 172, 210. ASSESSMENT AND PLAN: 1. Acute kidney injury. Acute tubular necrosis. Continue IV hydration. Showing excellent improvement. She does not appear to be volume overloaded. Good urine output. 2. Electrolytes, acid-base, bicarb appear to be on target. 3. Dfs-RE-ejxkgezit, cardiac ischemia. Will need left heart catheterization when her renal function allows. 4. Diabetes mellitus type 2. Sugars, continue to watch pattern. Adjust insulin according. 5. Review of her orders. I do not have any changes. She is on Protonix 40 mg IV q.12 hours. I think I can change that to p.o. She is getting normal saline at 75 mL an hour. Lopressor 12.5 q.6 hours. Robaxin 500 mg p.o. b.i.d. p.r.n. Lactulose, will change to p.r.n. She is getting Humulin 70/30, 8 units twice a day and I will go up to 12 on that. Lipitor 40 mg at bedtime. She is on fluticasone. She is on aspirin 325 mg a day and atorvastatin 40 mg at bedtime. cc: Anselmo Diaz MD
[2016-06-07] MEDS ORDERED: LACTULOSE PO PRN (09:00)
[2016-06-07] MEDS: ADVAIR 250/50 DISKUS INH SCH (10:38)
[2016-06-07] MEDS: ZOFRAN IV PRN (11:16)
--- NOTE | 2016-06-07 12:22 | EKG Report ---
Test Performed on : 06/07/2016 12:01:43 PM Test Reason : dyspnea Blood Pressure : / mmHG Vent. Rate : 077 BPM Atrial Rate : 077 BPM P-R Int : 164 ms QRS Dur : 096 ms QT Int : 406 ms P-R-T Axes : 027 025 099 degrees QTc Int : 459 ms Normal sinus rhythm. Possible Left atrial enlargement Low voltage QRS Possible Anterolateral infarct (cited on or before 26-MAY-2013) Abnormal ECG When compared with ECG of 03-JUN-2016 06:42, No significant change was found Confirmed by John EDMONDSON, Chris Dias ([id number]) on 06/07/2016 9:59:22 PM
--- NOTE | 2016-06-07 13:56 | PROGRESS NOTE ---
DATE: 06/07/2016 SUBJECTIVE: She is feeling better every day. No shortness of breath. No further chest discomfort, palpitations, diaphoresis. OBJECTIVE: Vital Signs: Blood pressure 145/112, heart rate 77, respirations 12, afebrile. Generally, she is in no acute distress. Skin is warm and dry. Neck veins are not distended. Heart is regular without gallops. Lungs have equal breath sounds. No crackles. Abdomen is soft and nontender. Bowel sounds are present. Extremities have 2+ edema. No clubbing or cyanosis. IMPRESSION: 1. Acute kidney injury. This has been progressively improving with excellent urine output and no indications for dialysis. If her cath can be delayed until Friday then I think her risk will be optimized. 2. Volume status. Moderate volume overload so I will stop her IV fluids. 3. Electrolytes/acid base/anemia. All in target. 4. Hypertension. Blood pressure diastolic is high this morning, but she has typically been within target, so we will make no changes. cc: Raymond Jennings MD
[2016-06-07] MEDS: HUMULIN 70/30 SUBQ SCH (16:59)
[2016-06-07] MEDS: LIPITOR PO SCH (20:44)
[2016-06-08] MEDS: HEPARIN 25,000 UNITS/D5W 25,000 UNIT/250 ML IV.SOLN IV SCH ×4 (02:16→18:07)
[2016-06-08] MEDS: TYLENOL PO PRN (02:22)
[2016-06-08] MEDS: DUONEB (A & A) INH SCH ×5 (02:49→22:34)
[2016-06-08] MEDS: LOPRESSOR PO SCH ×4 (04:14→21:07)
[2016-06-08 05:58] LABS: CALCIUM 8.2 mg/dL (8.8-10.2); POTASSIUM 4.2 mmol/L (3.5-5.1)
[2016-06-08] MEDS: PRILOSEC PO SCH (06:24)
[2016-06-08] MEDS: SUBOXONE 8 MG/2 MG SL SCH ×2 (08:54→21:07)
[2016-06-08] MEDS: LASIX PO SCH (09:00)
[2016-06-08] MEDS: MIRALAX PO SCH (09:01)
[2016-06-08] MEDS: ASPIRIN PO SCH (09:01)
[2016-06-08] MEDS: NICODERM PATCH TD SCH (09:01)
[2016-06-08] MEDS: HUMULIN 70/30 SUBQ SCH ×2 (09:02→17:18)
[2016-06-08] MEDS: ADVAIR 250/50 DISKUS INH SCH (09:20)
--- NOTE | 2016-06-08 15:06 | PROGRESS NOTE ---
DATE: 06/08/2016 SUBJECTIVE: She feels much better today. No complaints of pain, breathing comfortably. EXAM: Vital Signs: Temperature 98.4 degrees, pulse 72, respirations 16, blood pressure 120/105. HEENT: Pupils are equal and round. Lungs: Clear in all lung olea. Cardiovascular: Regular rhythm, rate without murmur or S3. Abdomen: Soft. Skin: Warm and dry. Urine output 1500 mL. LAB: White count 14,720, hematocrit is 30, platelet count is 183,000. Chemistries today sodium 137, potassium 4.2, chloride 101, bicarb 18, BUN 82, creatinine 1.7, blood sugars 222, 243, 147, 135, albumin 3.0. ASSESSMENT AND PLAN: 1. Acute renal injury, acute tubular necrosis. Renal function is resolving. Her creatinine is down to 1.7 very encouraging, good urine output. 2. Diabetes mellitus. Blood sugars better controlled. 3. Checked an EKG yesterday followup, was normal sinus rhythm. QT interval was 459, unremarkable ST segments, poor R-wave progression noted in the anterior segments, underlying suspicion for coronary artery disease, came in with a non ST-segment ST or myocardial infarction so kidney function improving, hope to get a left ventricular heart catheterization next week. Have reviewed orders, do not see any change at this point. cc: Anselmo Diaz MD
[2016-06-08] MEDS: LIPITOR PO SCH (21:07)
[2016-06-09] MEDS: DUONEB (A & A) INH SCH ×4 (03:07→22:28)
[2016-06-09] MEDS: HEPARIN 25,000 UNITS/D5W 25,000 UNIT/250 ML IV.SOLN IV SCH ×4 (03:22→20:13)
[2016-06-09] MEDS: TYLENOL PO PRN ×2 (03:23→13:23)
[2016-06-09] MEDS: LOPRESSOR PO SCH ×4 (03:23→20:17)
[2016-06-09] MEDS: PRILOSEC PO SCH ×2 (05:28→06:45)
[2016-06-09 05:44] LABS: CALCIUM 8.5 mg/dL (8.8-10.2); POTASSIUM 4.4 mmol/L (3.5-5.1)
[2016-06-09] MEDS: SUBOXONE 8 MG/2 MG SL SCH ×2 (08:23→20:17)
[2016-06-09] MEDS: NICODERM PATCH TD SCH (08:23)
[2016-06-09] MEDS: MIRALAX PO SCH (08:23)
[2016-06-09] MEDS: ASPIRIN PO SCH (08:24)
[2016-06-09] MEDS: LASIX PO SCH (08:24)
[2016-06-09] MEDS: HUMULIN 70/30 SUBQ SCH ×2 (08:25→17:03)
[2016-06-09] MEDS: ROBAXIN PO PRN (08:32)
[2016-06-09] MEDS: ADVAIR 250/50 DISKUS INH SCH (09:01)
--- NOTE | 2016-06-09 09:02 | PROGRESS NOTE ---
DATE: 06/09/2016 SUBJECTIVE: She is sitting up in a chair. She does feel better. He is, I think, more concerned about the rash on her breasts which appears to be a erasmo yeast rash. PHYSICAL EXAMINATION: Vital Signs: Temperature 98.4, pulse 70, respirations 16, blood pressure 137/92. HEENT: Pupils are equal and round. Lungs: Are clear in all lung olea. Cardiovascular Examination: Regular rhythm and rate without murmur or S3. Is and Os: Urine output is 2600. LABORATORY DATA: Blood sugars 135, 205, 193. Reviewed her lab from the . White count was 14,720. Electrolytes today, sodium 137, potassium 4.4, chloride 102, bicarb 21, BUN 78, creatinine 1.7. Blood sugars 208, 176, 193. ASSESSMENT AND PLAN: 1. Acute renal injury, acute tubular necrosis. Renal function is resolving. Creatinine is down to 1.7 which is encouraging. Continue present fluids. 2. Diabetes mellitus type 2. Sugars under better control. 3. She presented with what we think was a non-ST myocardial infarction so we will need to evaluate her coronary arteries when we are able to. 4. Fungus rash underneath her breasts, intertriginous areas. Continue the topical regimen. 5. Review of her orders. I do not see any change at this point. She is on a nicotine patch still. She is on a heparin drip. Her PTT looks appropriate. cc: Anselmo Diaz MD
[2016-06-09] MEDS: ROBAXIN PO SCH (18:05)
[2016-06-09] MEDS: LIPITOR PO SCH (20:17)
[2016-06-10] MEDS: ZOFRAN IV PRN (02:57)
[2016-06-10] MEDS: DUONEB (A & A) INH SCH ×4 (03:16→22:48)
[2016-06-10] MEDS: LOPRESSOR PO SCH ×4 (03:46→21:35)
[2016-06-10 05:22] LABS: ALBUMIN 3.1 g/dL (3.5-5.0); POTASSIUM 4.8 mmol/L (3.5-5.1)
--- NOTE | 2016-06-10 05:32 | EKG Report ---
Test Performed on : 06/10/2016 03:05:54 AM Test Reason : SOB Blood Pressure : / mmHG Vent. Rate : 072 BPM Atrial Rate : 072 BPM P-R Int : 170 ms QRS Dur : 094 ms QT Int : 406 ms P-R-T Axes : 032 061 053 degrees QTc Int : 444 ms Normal sinus rhythm. Low voltage QRS Possible Anterolateral infarct (cited on or before 26-MAY-2013) Abnormal ECG When compared with ECG of 07-JUN-2016 12:01, No significant change was found Confirmed by John EDMONDSON, Chris Dias ([id number]) on 06/10/2016 9:05:54 AM
[2016-06-10 05:52] LABS: HEMATOCRIT 32.6 % (37.0-47.0); HEMOGLOBIN 10.3 g/dL (12.0-16.0); MCH 28.9 PG (27-31); MCHC 31.6 g/dL (33-37); MCV 91.6 FL (81-99); MPV 12.3 FL (7.4-10.4); RBC 3.56 XMIL (4.2-5.4)
[2016-06-10] MEDS: HEPARIN 25,000 UNITS/D5W 25,000 UNIT/250 ML IV.SOLN IV SCH ×3 (06:45→18:18)
[2016-06-10] MEDS: PRILOSEC PO SCH (06:45)
[2016-06-10] MEDS: ROBAXIN PO SCH ×2 (06:45→17:19)
--- NOTE | 2016-06-10 07:17 | EKG Report ---
Test Performed on : 06/10/2016 06:51:28 AM Test Reason : No Order in [employer] Blood Pressure : / mmHG Vent. Rate : 069 BPM Atrial Rate : 069 BPM P-R Int : 166 ms QRS Dur : 092 ms QT Int : 410 ms P-R-T Axes : 033 026 062 degrees QTc Int : 439 ms Normal sinus rhythm. Low voltage QRS Cannot rule out Anteroseptal infarct (cited on or before 26-MAY-2013) Abnormal ECG When compared with ECG of 10-JUN-2016 03:05, (Unconfirmed) No significant change was found Confirmed by John EDMONDSON, Chris Dias ([id number]) on 06/10/2016 9:08:25 AM
[2016-06-10] MEDS ORDERED: INSULIN PEN NEEDLES ONE (07:28)
[2016-06-10] MEDS: HUMULIN 70/30 SUBQ SCH ×2 (07:31→16:08)
[2016-06-10] MEDS: ASPIRIN PO SCH (08:32)
[2016-06-10] MEDS: NICODERM PATCH TD SCH (08:33)
[2016-06-10] MEDS: LASIX PO SCH (08:33)
[2016-06-10] MEDS: MIRALAX PO SCH (08:33)
[2016-06-10] MEDS: SUBOXONE 8 MG/2 MG SL SCH ×2 (08:33→21:38)
[2016-06-10] MEDS: ADVAIR 250/50 DISKUS INH SCH (09:30)
[2016-06-10] MEDS: ATIVAN IV PRN ×2 (09:53→18:18)
--- NOTE | 2016-06-10 10:11 | PROGRESS NOTE ---
DATE: 06/10/2016 SUBJECTIVE: Ms. Silva is having a panic attack this morning. Otherwise, she had been doing better but is requesting something for her anxiety. PHYSICAL EXAMINATION: Vital Signs: Temperature 97.5 degrees, pulse 69, respirations 21, blood pressure 139/74. HEENT: Pupils are equal. CVP less than 6 cm. Lungs: Clear in all lung olea. Cardiovascular Examination: Regular rhythm and rate without murmur or S3. Is and Os: Urine output appeared to be well over 1200 mL. LABS: From this morning, white count down to 13,660, hematocrit 32, platelet count 217,000. Sodium 138, potassium 4.8, chloride 99, BUN 76, creatinine 1.6, blood sugars 278, 242, 224, and 222. She had 2 EKGs done, 1 at 3 this morning and another 1 a little later on at 6. Both appeared normal sinus rhythm. I do not appreciate significant ST changes but we do feel she has underlying coronary artery disease. Awaiting to study her. ASSESSMENT AND PLAN: 1. Acute renal injury, acute tubular necrosis. Creatinine and renal function improving with serum creatinine down to 1.6. 2. Underlying coronary artery disease. Presented with a non-ST segment myocardial infarction. Want to study her when we are able to. 3. She had rash underneath her breasts, intertriginous areas. This seems to be improving with topical powder. 4. Panic attacks. We will let her have some Ativan every 4 hours as needed for anxiety. 5. Discussed with Cardiology and Nephrology about when she will be able to be studied, coronary study. cc: Anselmo Diaz MD
--- NOTE | 2016-06-10 11:25 | PROGRESS NOTE ---
DATE: 06/10/2016 TIME SEEN: 0830. SUBJECTIVE: Ms. Silva is sitting up on the bedside commode. She denies any chest pain or increased work of breathing. She denies any recent palpitations. OBJECTIVE: Vital Signs: Her most recent vital signs, her temperature is 97.5 degrees, blood pressure 139/74, heart rate 59, respirations are 20. She is on 2 L nasal cannula. Last recorded saturation is 98%. She has had 425 in. She has had 700+ out per void. Labs: Her most recent labs, sodium 138, potassium 4.8, chloride is 99, CO2 20, BUN 78, creatinine is 1.6, glucose is 224. Her anion gap is 19, calcium 9, phosphorus 4.7, albumin 3.1. White count 13.66, hemoglobin 10.3, hematocrit 32.6, with a platelet count of 217,000. Physical Examination: General: This is a 55-year-old, white female. She is sitting up. She is in no acute distress. Skin: Warm and dry. HEENT: Normocephalic, atraumatic. Conjunctivae are pink. She has JASON. Mucous membranes moist. Neck: Supple. Trachea midline. No JVD. Cardiovascular: She has regular rate and rhythm. She is without murmur or gallop. Lungs: Clear to auscultation anteriorly. Equal excursion on O2. Abdomen: Large, round, soft, nontender. Positive bowel sounds. Genitourinary: Patient is voiding adequate amount. Extremities: She continues with 3+ lower extremity edema. No clubbing or cyanosis. Integumentary: She is without rashes or lesions. Neurological: She is alert and oriented x3. Able to assist with exam. ASSESSMENT AND PLAN: 1. Acute kidney injury. Patient has been slowly improving. Urine output remains stable. Patient has already eaten her breakfast this morning. She stated that she is not scheduled for any heart catheterization intervention at this time. It is okay from our perspective to proceed with this at this time. We will continue to be available and monitoring labs. 2. Volume status. She continues in fluid volume overload. Her intravenous fluids have currently been stopped. No indications for intervention. 3. Electrolytes, acid-base balance, and anemia. These are all in target. I would to thank you for allowing us to follow with this patient. Seen, data reviewed, discussed with Gerber Meneses on 06/10/16. I agree with the above assessment and plan of care. rg Dictated by PEPE Doshi for Raymond Jennings MD cc: PEPE Doshi MD [facility]
[2016-06-10] MEDS: LIPITOR PO SCH (21:35)
[2016-06-11] MEDS: LOPRESSOR PO SCH ×4 (02:46→21:23)
[2016-06-11] MEDS: DUONEB (A & A) INH SCH ×4 (03:08→22:27)
[2016-06-11] MEDS: ROBAXIN PO SCH ×2 (06:06→17:58)
[2016-06-11] MEDS: PRILOSEC PO SCH (06:06)
[2016-06-11] MEDS: HEPARIN 25,000 UNITS/D5W 25,000 UNIT/250 ML IV.SOLN IV SCH ×2 (06:34→06:36)
[2016-06-11] MEDS: HUMULIN 70/30 SUBQ SCH ×2 (07:28→16:41)
[2016-06-11 08:14] LABS: ALBUMIN 3.2 g/dL (3.5-5.0); CALCIUM 8.7 mg/dL (8.8-10.2)
[2016-06-11] MEDS ORDERED: MISC. PHARMACY COMMUNICATION SCH ×2 (09:00→10:00)
[2016-06-11] MEDS ORDERED: SODIUM BICARBONATE 8.4% 150 MEQ in D5W 1,000 ML IV SCH ×2 (09:00→10:31)
[2016-06-11] MEDS: ASPIRIN PO SCH (09:08)
[2016-06-11] MEDS: MIRALAX PO SCH (09:09)
[2016-06-11] MEDS: NICODERM PATCH TD SCH (09:09)
[2016-06-11] MEDS: SUBOXONE 8 MG/2 MG SL SCH ×2 (09:09→21:24)
[2016-06-11] MEDS: MUCOMYST 20% PO SCH ×2 (09:09→21:25)
[2016-06-11] MEDS: LASIX PO SCH (09:09)
--- NOTE | 2016-06-11 09:43 | Diag Imaging Result Document ---
PROCEDURE NAME: CHEST-2 VIEWS - 06/11/2016 CHEST X-RAY, 2 VIEWS: COMPARISON: 06/08/2016. FINDINGS: There are new moderate pleural effusions. There is cardiomegaly. Stable left-sided pacemaker. There are ill-defined interstitial infiltrates diffusely and bilaterally. There is more prominent focal infiltrate in the left upper lobe. IMPRESSION: Pulmonary edema with pleural effusions, plus or minus left upper lobe pneumonia.
[2016-06-11] MEDS: HEPARIN 25,000 UNIT in NS 250 ML IV SCH (09:47)
--- NOTE | 2016-06-11 10:38 | PROGRESS NOTE ---
DATE: 06/11/2016 CHIEF COMPLAINT: Shortness of breath, chest discomfort. SUBJECTIVE: Ms. Silva is very short of breath. She cannot lie flat on her back. OBJECTIVE: Blood pressure today is 120/79, temperature 98.1, pulse 67, respirations 21. She is awake, chronically ill. HEENT is unremarkable. Chest: Diminished breath sounds bilaterally. Heart sounds are regular and rhythmic. I do not hear a gallop or murmur. Abdomen is nontender. No masses. No hepatomegaly. Extremities showed edema 1+ bilaterally. Neurologic: She moves all 4 extremities. Patient can not lay down for more than 3 minutes.She is orthopneic. DIAGNOSTIC DATA: A 12-lead EKG done yesterday at 6:51 shows sinus rhythm with low voltage, inferior scar. Possible anterior scar also. Blood work today shows sodium 137, potassium 5.0, BUN is 82, creatinine 1.7. IMPRESSION: The patient presented with an acute coronary syndrome, positive enzymes, non-ST- elevation myocardial infarction, complicated by acute renal failure on top of chronic renal insufficiency. Now the patient appears to have congestive heart failure which is probably a combination of systolic and diastolic dysfunction based on previous myocardial infarction. RECOMMENDATIONS: Initially I put the patient on IV bicarbonate for preparation so we could proceed with a heart catheterization; however, her chest x-ray done this morning shows pulmonary edema. At this point in time, we are going to cancel the heart catheterization and also the IV bicarbonate, and we will proceed to give her IV Lasix to try to get her into a more euvolemic state. We have to discuss with Nephrology and see exactly what we are going to do for her since at this point in time she is really not in any shape to undergo any cardiac catheterization procedure. Thank you again for the opportunity to participate in her evaluation. cc: Duncan Gross MD [facility]
[2016-06-11] MEDS: ADVAIR 250/50 DISKUS INH SCH (11:15)
[2016-06-11] MEDS: LASIX IV SCH ×2 (11:18→21:32)
[2016-06-11] MEDS: SODIUM BICARBONATE PO SCH ×2 (14:05→21:23)
--- NOTE | 2016-06-11 14:29 | PROGRESS NOTE ---
DATE: 06/11/2016 Today Ms. Silva referred to be doing fine. She denies any chest pain. OBJECTIVE: Vital signs: Blood pressure is 150/100, pulse is 65, respirations 24, temperature 98.6 degrees. General: Ms. Silva is a 55-year-old female. She was sitting up in the chair. She did not seem to be in any remarkable distress. HEENT: Mucosa is pink and moist. Anicteric. Acyanotic. Neck: Supple. There is a positive JVD. Chest: Air entry is bilaterally reduced. There are diffuse bilateral coarse crackles in the posterior lung olea. Cardiovascular: Regular rate and rhythm. Did not appreciate any murmurs or rubs. Abdomen: Distended, nontender. Bowel sounds are present. Extremities: About 3+ pedal edema extending all the way to the thighs. LABORATORY DATA: WBC is 13.6, hemoglobin is 10.3, platelet count is 217,000. Chemistry is reviewed. Sodium is 137, potassium is 6.0, bicarb is 16, creatinine is 1.7. Patient has a baseline creatinine of about 1.0, 1.1 in 2013 and 2014 which has gradually worsened over the course of the hospital course. ProBNP is 32,442. This has also significantly worsened from admission. Phosphorus is 5.0 which is elevated. A chest x-ray done this morning shows pulmonary edema with pleural effusions, plus/minus left upper lobe pneumonia. The patient does not have any clinical manifestations of pneumonia. CURRENT MEDICATIONS INCLUDE: 1. Mucomyst. 2. Atorvastatin 40 b.i.d. daily. 3. Lasix 40/80 IV q.12. 4. Heparin drip. 5. Metoprolol. ASSESSMENT: 1. Congestive heart failure likely due to coronary artery disease. 2. Non-STEMI. Patient presented with non ST-segment elevation with elevated troponins which has gradually gotten better. There is a plan to have her do a left heart catheterization but the patient seems to be having fluid overload and I think that needs to be addressed and get her euvolemic before that is done. 3. Acute on chronic kidney disease. The patient is having adequate renal urine output. Her urine output yet yesterday was 1275. Nephrology is on board. I think the creatinine gradually has normalized around 1.6, 1.7 which I think probably that is her new normal. 4. History of coronary artery disease with multiple stents in the past. A left heart cath which was done in 2014 did show LAD disease and circ disease. RCA was completely occluded on that occasion. 5. Metabolic acidosis which I think is due to the renal disease. The patient was being given IV bicarb drip but because of fluid overload this has been discontinued. We will give her oral bicarb pills. So in general Ms. Silva has a non-STEMI which has been complicated with CHF and acute on chronic kidney disease. I think she is having remarkable fluid overload issues and we need to get her euvolemic until the left heart catheterization is done. The patient has been given some doses of Lasix. Will keep eye on her urine output. If she starts to develop any complications from diuretic therapy then I think the next step would be to evaluate for hemodialysis because of fluid and because of acid-base and potassium being on the higher limit side. cc: Clarence Iglesias MD MTDD
--- NOTE | 2016-06-11 14:48 | PROGRESS NOTE ---
DATE: 06/11/2016 TIME SEEN: 08 SUBJECTIVE: Ms. Silva is sitting up on the side of the bed. She is eating her breakfast. She denies any chest pain. She states that her swelling has much improved. She denies any respiratory distress. PHYSICAL EXAMINATION: Vital Signs: Her most recent vital signs are temperature 98.7 degrees, blood pressure 120/79, heart rate 67, respirations 21. She remains on 2L nasal cannula. Last recorded saturation is 100%. She has had 1846 in, 1275 out per void. General: This is a 55-year- old white female. She is currently resting in bed. She is in no acute distress. Skin: Warm and dry. HEENT: Normocephalic, atraumatic. Conjunctivae pale. She has JASON. Mucous membranes are dry. Neck: Supple. Trachea midline. No JVD. Cardiovascular: Regular rate and rhythm. She is without murmur or gallop. Lungs: Diminished breath sounds anterior. She remains on O2. Equal excursion. Abdomen: Large, nontender. Positive bowel sounds present. Genitourinary: Not inspected. Patient is voiding adequate amount. Extremities: Continues to show 1+ lower extremity edema with some different stages of healing ecchymosis. No clubbing or cyanosis. Neurological: She moves all extremities well. LABORATORIES: Sodium 137, potassium 5, chloride 100, CO2 of 16, BUN 82, creatinine 1.7, glucose 267. Her anion gap is 21, calcium 8.7, phosphorus 5, albumin is 3.2. Her previous hemoglobin was 10.3 on 06/10/2016. ASSESSMENT AND PLAN: 1. Acute kidney injury on chronic kidney disease stage 3a. Patient's chest x- ray shows that she is in pulmonary edema today. She has had a sodium bicarbonate intravenous drip started. Cardiology has requested that this be stopped. They have ordered Lasix to be given. They will hold on her left heart catheterization until patient is more euvolemic, though she has actually no complaints today. Adequate urine out. Creatinine continues stable. We will sign off at this time. Please call if I can help. rg 2. Electrolytes. These remain stable. 3. Acid-base balance. Modest. Recovering FLORENCE. No intervention. 4. Anemia. This remains stable. 5. Fluid volume overload. Cardiology has ordered the patient to have Lasix at this time. No indications for any further intervention. We will continue to monitor. I would to thank you for allowing us to follow with this patient. Seen, data reviewed, discussed with Gerber Meneses on 06/11/16. I agree with the above assessment and plan of care. rg Dictated by PEPE Doshi for Raymond Jennings MD cc: PEPE Doshi MD [facility]
[2016-06-11] MEDS: ATIVAN IV PRN (18:45)
[2016-06-11] MEDS: LIPITOR PO SCH (21:23)
[2016-06-12] MEDS: HEPARIN 25,000 UNIT in NS 250 ML IV SCH ×2 (00:15→14:58)
[2016-06-12] MEDS: LOPRESSOR PO SCH ×4 (02:19→21:19)
[2016-06-12] MEDS: ATIVAN IV PRN ×3 (02:19→14:49)
[2016-06-12] MEDS: DUONEB (A & A) INH SCH ×4 (03:43→22:05)
[2016-06-12] MEDS: ROBAXIN PO SCH ×2 (06:04→17:29)
[2016-06-12] MEDS: PRILOSEC PO SCH (06:04)
[2016-06-12 07:08] LABS: ALBUMIN 3.2 g/dL (3.5-5.0); CALCIUM 8.6 mg/dL (8.8-10.2); POTASSIUM 4.4 mmol/L (3.5-5.1)
[2016-06-12] MEDS: ADVAIR 250/50 DISKUS INH SCH (07:19)
[2016-06-12] MEDS ORDERED: MUCOMYST 20% ONE (07:26)
[2016-06-12] MEDS: SUBOXONE 8 MG/2 MG SL SCH ×2 (11:04→21:14)
[2016-06-12] MEDS: LASIX IV SCH ×2 (11:04→23:22)
[2016-06-12] MEDS: NICODERM PATCH TD SCH (11:04)
[2016-06-12] MEDS: MUCOMYST 20% PO SCH ×2 (11:04→22:05)
[2016-06-12] MEDS: MIRALAX PO SCH (11:04)
[2016-06-12] MEDS: SODIUM BICARBONATE PO SCH ×2 (11:05→21:14)
[2016-06-12] MEDS: PHOSLO PO SCH ×2 (11:05→17:29)
[2016-06-12] MEDS: LASIX PO SCH (11:05)
[2016-06-12] MEDS: ASPIRIN PO SCH (11:06)
[2016-06-12] MEDS: HUMULIN 70/30 SUBQ SCH ×2 (11:06→17:30)
--- NOTE | 2016-06-12 13:17 | PROGRESS NOTE ---
DATE: 06/12/2016 SUBJECTIVE: Today, Ms. Silva refers to be doing fine. She was actually sitting up in a chair when I saw her. She denies any chest pain. OBJECTIVE: Vital signs: Blood pressure is 138/60, pulse is 71, respirations 24 , temperature is 98.9 degrees. General: Ms. Silva is a 55-year-old female. She was sitting up in a chair. She did not seem to be in any distress. HEENT: Mucosa is pink and moist. Anicteric. Acyanotic. Neck: Supple. Chest: Air entry is bilaterally reduced. There are a few bibasilar coarse crackles. Cardiovascular: Regular rate and rhythm. No murmurs, no rubs. Abdomen: Distended. Bowel sounds are present. Extremities: About 3+ pedal edema extending all the way to the thighs and to the hips. Neurologic: Patient is alert and oriented x4. There is no focal neurological deficit. INTAKE AND OUTPUT: Urine output was 1000 for a positive balance of 179. LABORATORY DATA: Chemistry: Sodium is 137, potassium 4.4, chloride 99, bicarb is 21, BUN is 80,, creatinine is 1.6. Calcium is 8.6, phosphorus is 4.6, vitamin D is 18.6, and PTH is 114. ASSESSMENT: 1. Congestive heart failure due to coronary artery disease. 2. Non-STEMI. 3. Acute on chronic kidney disease. 4. History of coronary artery disease with stents in the past. 5. Metabolic acidosis improving. 6. Vitamin D deficiency. 7. Secondary hyperparathyroidism. 8. Hyperphosphatemia likely due to underlying kidney disease. PLAN: In general, Ms. Silva seems to be stable. She is continues to have remarkable fluid overload. She is still getting IV Lasix. We have added calcium acetate and p.o. biocarb to address some of her underlying electrolyte abnormalities associated with her kidney disease. The patient is pending adequate euvolemic status before a left heart catheterization can be may can be made. We will continue following the patient with further recommendations from both Cardiology and Nephrology. cc: Clarence Iglesias MD [facility] SYSTEMTerri
[2016-06-12] MEDS ORDERED: INSULIN PEN NEEDLES ONE (17:20)
--- NOTE | 2016-06-12 18:39 | PROGRESS NOTE ---
DATE: 06/12/2016 CHIEF COMPLAINT: Shortness of breath. SUBJECTIVE: Ms. Silva is more comfortable today. I will put her back on Lasix. She has experienced good diuresis. Her weight has dropped by 7 pounds since June 11. She is not having any chest pain. OBJECTIVE: Vital signs: Blood pressure 134/98, temperature 98.9, pulse 68, respirations 24. General: She is awake, chronically ill. HEENT: Unremarkable. Chest: Diminished breath sounds at the bases. Cardiac: Heart sounds are regular and rhythmic. No definite gallop or murmur noted. Abdomen: Obese, distended. Extremities: Showed 1-2+ edema. Neurologic: Follows commands. Moves four extremities. LABORATORY DATA: Sodium 137, potassium 4.4, BUN 80, creatinine 1.6, chloride 99 , carbon dioxide 21. PTH 114. Albumin 3.2. IMPRESSION: Patient who presented with respiratory distress, non ST elevation myocardial infarction. She has improved clinically, however, she has developed congestive heart failure with pulmonary edema, which is a combination of systolic and diastolic heart failure. In addition, she has developed acute on chronic renal insufficiency. RECOMMENDATIONS: At this point in time, we will continue with intravenous Lasix. Will see how she does over the next few days. At this time, she is still too fluid overloaded to proceed with any invasive cardiac evaluation. In addition, her renal function is very tenuous, and invasive studies with use of intravenous contrast material (iodine dye) would probably lead to fulminant renal failure necessitating dialysis in all likelihood. We will follow her. cc: Duncan Gross MD [facility]
[2016-06-12] MEDS: LIPITOR PO SCH (21:14)
[2016-06-13] MEDS: LOPRESSOR PO SCH ×3 (03:22→20:24)
[2016-06-13] MEDS: DUONEB (A & A) INH SCH ×4 (03:53→21:15)
[2016-06-13] MEDS: HEPARIN 25,000 UNIT in NS 250 ML IV SCH (05:04)
[2016-06-13] MEDS: ROBAXIN PO SCH ×2 (05:04→17:04)
[2016-06-13 05:51] LABS: ALBUMIN 3.1 g/dL (3.5-5.0); CALCIUM 9.3 mg/dL (8.8-10.2); POTASSIUM 4.4 mmol/L (3.5-5.1)
[2016-06-13] MEDS: PRILOSEC PO SCH (06:07)
[2016-06-13] MEDS: MIRALAX PO SCH (08:39)
[2016-06-13] MEDS: LASIX PO SCH (08:39)
[2016-06-13] MEDS: NICODERM PATCH TD SCH (08:39)
[2016-06-13] MEDS: HUMULIN 70/30 SUBQ SCH ×2 (08:40→17:03)
[2016-06-13] MEDS: PHOSLO PO SCH ×3 (08:40→17:03)
[2016-06-13] MEDS: ASPIRIN PO SCH (08:41)
[2016-06-13] MEDS: SODIUM BICARBONATE PO SCH ×2 (08:41→20:25)
[2016-06-13] MEDS: MUCOMYST 20% PO SCH ×2 (08:41→20:24)
[2016-06-13] MEDS: SUBOXONE 8 MG/2 MG SL SCH ×2 (08:44→20:25)
[2016-06-13] MEDS: ADVAIR 250/50 DISKUS INH SCH (10:54)
[2016-06-13] MEDS: LASIX IV SCH ×2 (12:08→23:29)
--- NOTE | 2016-06-13 15:56 | PROGRESS NOTE ---
DATE: 06/13/2016 SUBJECTIVE: Today Ms. Silva referred to be doing fine. Denies any pain. OBJECTIVE: Vital signs: Blood pressure is 160/69, pulse 62, respiration is 16, temperature is 97.8 degrees. General: Ms. Silva is a 65-year-old female. She was sitting up in a chair, not in any distress. HEENT: Mucosa is pink and moist. Anicteric. Acyanotic. Neck: Supple. Chest: Good air entry bilateral. A few bibasilar crepitations, more so on the right lower lobe. Cardiovascular: Regular rate and rhythm. No murmurs, no rubs. No gallops. Abdomen: Soft, distended, but nontender. Extremities: About 3+ pedal edema. OBSTETRICS TECHNICIAN: Patient is alert and oriented. There is no focal neurological deficit. Ins and Outs: The urine output was 2050 for a negative balance of 1446. ASSESSMENT: 1. Congestive heart failure secondary to coronary artery disease. 2. Non ST elevation myocardial infarction. Patient continues on heparin anticoagulation. 3. Acute on chronic kidney disease. 4. History of coronary artery disease in the past with stents. 5. Vitamin D deficiency. 6. Secondary hyperparathyroidism. 7. Hyperphosphatemia likely due to underlying chronic kidney disease. So in general, Ms. Silva is doing okay. We will continue with the IV Lasix to continue diuresing her until she euvolemic and then Cardiology will plan to do a left heart catheterization. Either way, I think once dye is used during the left heart catheterization process, patient's kidney function will get worse, and I am afraid she is going to be ending up needing dialysis. Nephrology is on board and we will continue following up with further recommendations from them. cc: Clarence Iglesias MD
[2016-06-13] MEDS: ATIVAN IV PRN (20:24)
[2016-06-13] MEDS: LIPITOR PO SCH (20:26)
[2016-06-14] MEDS: ATIVAN IV PRN ×4 (00:33→22:11)
[2016-06-14] MEDS: DUONEB (A & A) INH SCH ×4 (03:35→22:35)
[2016-06-14 05:11] LABS: MANUAL DIFF NEEDED? NO
[2016-06-14 05:21] LABS: BASO% 0.4 % (0.0-0.8); EOS# 0.22 X1000 (0.0-0.7); EOS% 1.7 % (0.0-10.0); HEMATOCRIT 31.8 % (37.0-47.0); HEMOGLOBIN 9.9 g/dL (12.0-16.0); IMM GRAN# 0.03 X1000 (0.0-0.04); IMM GRAN% 0.2 % (0.0-0.5); LYMPH# 2.07 X1000 (1.2-3.4); LYMPH% 16.2 % (20.5-51.1); MCH 28.3 PG (27-31); MCHC 31.1 g/dL (33-37); MCV 90.9 FL (81-99); MONO# 1.24 X1000 (0.11-0.59); MONO% 9.7 % (1.7-9.3); MPV 12.3 FL (7.4-10.4); NEUT% 71.8 % (42.2-75.2); PLT 232 X1000 (130-400)
[2016-06-14 05:39] LABS: CALCIUM 9.2 mg/dL (8.8-10.2); POTASSIUM 3.9 mmol/L (3.5-5.1)
[2016-06-14] MEDS: ROBAXIN PO SCH ×2 (06:03→17:14)
[2016-06-14] MEDS: PRILOSEC PO SCH (06:03)
--- NOTE | 2016-06-14 08:29 | Diag Imaging Result Document ---
PROCEDURE NAME: CHEST-PORTABLE - 06/14/2016 SINGLE FRONTAL RADIOGRAPH OF THE CHEST: COMPARISON: 06/11/2016. FINDINGS: [id number] sized pleural effusions are essentially stable. Bilateral infiltrates are unchanged. Cardiac silhouette is stable. IMPRESSION: Stable chest.
[2016-06-14] MEDS: MIRALAX PO SCH (08:41)
[2016-06-14] MEDS: SUBOXONE 8 MG/2 MG SL SCH ×2 (08:41→22:12)
[2016-06-14] MEDS: PLAVIX PO SCH (08:42)
[2016-06-14] MEDS: SODIUM BICARBONATE PO SCH ×2 (08:42→21:19)
[2016-06-14] MEDS: PHOSLO PO SCH ×3 (08:42→16:20)
[2016-06-14] MEDS: ASPIRIN PO SCH (08:42)
[2016-06-14] MEDS: LOPRESSOR PO SCH ×2 (08:42→21:20)
[2016-06-14] MEDS: NICODERM PATCH TD SCH (08:42)
[2016-06-14] MEDS: MUCOMYST 20% PO SCH (08:43)
[2016-06-14] MEDS: HUMULIN 70/30 SUBQ SCH ×2 (08:53→16:16)
[2016-06-14] MEDS: BIDIL PO SCH ×3 (09:53→16:18)
[2016-06-14] MEDS: LASIX IV SCH (10:34)
[2016-06-14] MEDS: ADVAIR 250/50 DISKUS INH SCH (11:12)
--- NOTE | 2016-06-14 15:11 | PROGRESS NOTE ---
DATE: 06/14/2016 SUBJECTIVE: Today Ms. Silva referred to be doing fine. She was sitting up, does not have any acute problem. Shortness of breath is improving. OBJECTIVE: Vital Signs: Her blood pressure is pulse of 64, respirations 24 and temperature 97.5 degrees. General: Ms. Silva is a 55-year-old female. She was sitting up in the chair not in any distress. HEENT: Mucosa is pink and moist. Anicteric. Acyanotic. Neck: Supple. Chest: Good air entry bilateral. A few bibasilar crepitations. Cardiovascular: Regular rate and rhythm. Abdomen: Soft, distended, but nontender. Bowel sounds are present. Extremities: About 3+ pedal edema. FOOT DRILL OPERATOR: Patient is alert and oriented x4. Intake/output: The patient had 1350 output. Weight: Current weight is 234. ASSESSMENT: 1. Congestive heart failure secondary to coronary artery disease. 2. Non-ST segment elevation myocardial infarction. The patient continues to be on heart medications and anticoagulation. 3. Acute on chronic kidney disease. Nephrology is on board. 4. History of coronary artery disease in the past with stents. 5. Vitamin D deficiency. 6. Secondary hyperparathyroidism. 7. Hyperphosphatemia, improved. PLAN: In general, we are going to continue with the current diuretic therapy, as well as the heart medications. The patient's blood pressure was a little high today. We therefore ordered BiDil for better blood pressure control. I understand patient was sent for stress test, but was unable to lie flat. We will therefore wait for cardiology to reassess her, and give us some further recommendation as to what next they plan to do. cc: Clarence Iglesias MD [facility]
[2016-06-14 17:34] LABS: PROTEIN CREAT RATIO 0.2; UR CREAT RANDOM 94.5 mg/dL (11-20); UR PROT RANDOM 20.1 mg/dL
[2016-06-14] MEDS: LIPITOR PO SCH (21:19)
[2016-06-15] MEDS: LASIX IV SCH ×2 (00:08→11:47)
[2016-06-15] MEDS: DUONEB (A & A) INH SCH ×4 (04:59→19:20)
[2016-06-15] MEDS: PRILOSEC PO SCH (06:21)
[2016-06-15] MEDS: ROBAXIN PO SCH (06:23)
[2016-06-15 07:46] LABS: ALBUMIN 3.1 g/dL (3.5-5.0); CALCIUM 9.2 mg/dL (8.8-10.2); POTASSIUM 4.6 mmol/L (3.5-5.1)
[2016-06-15] MEDS: HUMULIN 70/30 SUBQ SCH ×2 (09:29→16:22)
[2016-06-15] MEDS: LOPRESSOR PO SCH ×2 (09:30→21:38)
[2016-06-15] MEDS: SUBOXONE 8 MG/2 MG SL SCH (09:30)
[2016-06-15] MEDS: BIDIL PO SCH ×3 (09:32→16:23)
[2016-06-15] MEDS: PHOSLO PO SCH ×2 (09:35→16:23)
[2016-06-15 11:22] LABS: UR AMPHETAMINES QUAL NONE DETECTED (NONE DETECT); UR BARBITUATES QUAL NONE DETECTED (NONE DETECT); UR BENZODIAZEPIN QUAL NONE DETECTED (NONE DETECT); UR CANNABINOIDS QUAL NONE DETECTED (NONE DETECT); UR COCAINE QUAL NONE DETECTED (NONE DETECT); UR METHADONE QUAL NONE DETECTED (NONE DETECT); UR OPIATES QUAL NONE DETECTED (NONE DETECT); UR OXYCODONE QUAL NONE DETECTED (NONE DETECT); UR PCP QUAL NONE DETECTED (NONE DETECT)
[2016-06-15] MEDS: ASPIRIN PO SCH (11:45)
[2016-06-15] MEDS: MUCOMYST 20% PO SCH (11:45)
[2016-06-15] MEDS: PLAVIX PO SCH (11:47)
[2016-06-15] MEDS: MIRALAX PO SCH (11:47)
[2016-06-15] MEDS: NICODERM PATCH TD SCH (11:47)
[2016-06-15] MEDS: SODIUM BICARBONATE PO SCH (11:47)
[2016-06-15 12:10] LABS: ALLEN TEST YES; BE 2.4 mmoll (-3.0-3.0); BLOOD TYPE ARTERIAL; DRAW SITE L RADIAL; METHB 0.9 % (0.0-1.5); O2(CT) 12.3 mL/dL (15.0-23.0); PCO2(98.6) 37 mmHg (35-45); PO2(98.6) 54 mmHg (60-100); SAMPLE BLOOD; SAO2 89.9 % (95.0-100.0); THB 9.8 g/dL (11.5-17.4); pH(98.6) 7.46 (7.35-7.45)
[2016-06-15 12:14] LABS: MODALITY CANNULA
--- NOTE | 2016-06-15 14:44 | PROGRESS NOTE ---
DATE: 06/15/2016 SUBJECTIVE: Today, Ms. Silva referred to be doing fine. Per the nursing staff , she has just been excessively drowsy. OBJECTIVE: Vital Signs: Stable. Blood pressure 96/77, pulse of 74, respiration is 14, temperature 97.6 degrees. General: Ms. Silva is a 55-year-old female, sitting up in the bed, drowsy, needed to be prompted multiple times to keep awake. Mucosa is pink and moist. Anicteric. Acyanotic. Neck is supple. Chest: Good air entry bilateral. A few bibasilar crepitations. Cardiovascular: Regular rate and rhythm. Abdomen is distended. Bowel sounds present. Extremity: About 3+ pedal edema. SHALE MINER BLASTING: The patient is drowsy but is easily arousable. We have to keep prompting her to keep her awake. LABORATORY DATA: Chemistry is reviewed. Creatinine is 1.7, almost the same as yesterday. ASSESSMENT: 1. Congestive heart failure secondary to coronary artery disease. We will continue with diureses and other heart medications. 2. Non ST-segment elevation myocardial infarction on presentation. The patient is being followed by Cardiology, and there is the thought process of getting her left heart catheterization. 3. Emxkz-wg-[id number] kidney disease. Nephrology is on board. 4. History of coronary artery disease in the past with stents. 5. Vitamin D deficiency. 6. Secondary hyperparathyroidism. 7. Hyperphosphatemia, improved. 8. Drowsiness likely due to over sedation. We are going to discontinue all the sedatives and use them judiciously only when needed. 9. Hypertension is a whole lot better. 10. Mild gap acidosis consistent with the degree of renal failure. We will continue with the oral sodium bicarb. In general, Ms. Silva is doing fine. She continues to have adequate urine output. We did check on her protein creatinine ratio which was just 0.2. None for any significant proteinuria. I think most of her fluid overload issue is just related with her heart. Her mentation, is due to over sedation. We will make sure that we discontinue all that and use it judiciously when needed. cc: Clarence Iglesias MD [facility]
[2016-06-15] MEDS: ADVAIR 250/50 DISKUS INH SCH (17:13)
--- NOTE | 2016-06-15 18:28 | PROGRESS NOTE ---
DATE: 06/15/2016 SUBJECTIVE: Patient reports feeling anxious. There has been no chest pain. OBJECTIVE: Vital Signs: Blood pressure 105/60, heart rate 74 and regular. Neck: There is no significant JV distention. Chest: Clear to auscultation with somewhat diminished breath sounds diffusely. Cardiac Exam: A regular rate and rhythm without appreciable murmur. Extremities: Demonstrate mild edema. LAB DATA: Includes BUN 73, creatinine 1.7. IMPRESSION: Recent respiratory distress with associated non-ST elevation myocardial infarction. She was felt to have combination of systolic and diastolic heart failure. She also has acute on chronic renal dysfunction. RECOMMENDATIONS: 1. Continue current cardiovascular regimen unchanged. 2. Consider further evaluation with coronary angiography in near future once patient clinically improved/stabilized. cc: Dale Evans MD
[2016-06-16] MEDS: DUONEB (A & A) INH SCH ×5 (00:21→19:20)
[2016-06-16] MEDS ORDERED: ATIVAN PO ONE (01:58)
[2016-06-16] MEDS: LIPITOR PO SCH ×2 (02:24→21:47)
[2016-06-16] MEDS: LASIX IV SCH ×4 (02:24→21:48)
[2016-06-16] MEDS: SODIUM BICARBONATE PO SCH ×3 (02:24→21:46)
[2016-06-16] MEDS: PRILOSEC PO SCH (06:27)
[2016-06-16] MEDS: TYLENOL PO PRN (06:27)
[2016-06-16 07:25] LABS: ALBUMIN 3.1 g/dL (3.5-5.0); CALCIUM 9.1 mg/dL (8.8-10.2); POTASSIUM 3.9 mmol/L (3.5-5.1)
[2016-06-16] MEDS: ASPIRIN PO SCH (08:14)
[2016-06-16] MEDS: MIRALAX PO SCH (08:14)
[2016-06-16] MEDS: PLAVIX PO SCH (08:14)
[2016-06-16] MEDS: BIDIL PO SCH ×3 (08:14→16:27)
[2016-06-16] MEDS: PHOSLO PO SCH ×3 (08:14→16:27)
[2016-06-16] MEDS: NICODERM PATCH TD SCH (08:14)
[2016-06-16] MEDS: LOPRESSOR PO SCH ×2 (08:15→21:09)
[2016-06-16] MEDS: HUMULIN 70/30 SUBQ SCH ×2 (09:23→16:26)
[2016-06-16] MEDS: MUCOMYST 20% PO SCH ×3 (10:06→21:56)
[2016-06-16] MEDS: ADVAIR 250/50 DISKUS INH SCH (10:21)
[2016-06-16] MEDS: SUBOXONE 2 MG/0.5 MG SL SCH ×2 (12:40→21:47)
[2016-06-16] MEDS ORDERED: INSULIN PEN NEEDLES ONE (16:24)
--- NOTE | 2016-06-16 20:52 | PROGRESS NOTE ---
DATE: 06/16/2016 SUBJECTIVE: Today Ms. Silva referred to be doing a little better. She did have a lot of complains that she is not getting her pain medication and that her anxiety level is up to the roof and she wants to go home because she is not getting the care that she needs because none of her pain medications and anxiety medications are being given to her. I did explain to her that because we tried to optimize her for possible left heart catheterization we cannot put her on a lot of sedatives that will just make her altered which we have seen in the hospital couple days ago. OBJECTIVE: Vital signs: Blood pressure is 102/49, pulse of 75, respirations 18 , temperature is 98.0 degrees. General: Ms. Silva is a 55-year-old female. She was in bed. No distress. HEENT: Mucosa is pink and moist. Anicteric. Acyanotic. Neck: Supple. Chest: Air entry is bilaterally reduced. There is bilateral posterior coarse crepitations. Cardiovascular: Regular rate and rhythm. No murmurs. Abdomen: Soft, distended but nontender. Extremities: About 3+ pedal edema. ASSEMBLER FOR PULLER OVER MACHINE: Patient is alert but easily falls sleepy but she follows commands. Psychiatric: Patient is easily tearful. LABORATORY DATA: No CBC today. Chemistry is reviewed. Creatinine is down to 1.4 from 1.7 yesterday. ASSESSMENT: 1. Congestive heart failure secondary to coronary artery disease. 2. Non-ST segment elevation myocardial infarction. Patient presented with elevated troponins. Still awaiting optimum euvolemic status for left heart catheterization. 3. Acute on chronic kidney disease. We think this is probably cardiorenal type II. Will continue optimizing the heart disease. Hopefully with the adequate diureses the kidney will get back to the baseline. 4. History of coronary artery disease in the past with stents noted. 5. Vitamin D deficiency. 6. Secondary hyperparathyroidism. 7. Drowsiness/ lethargy due to oversedation. Patient sedatives and pain medications were discontinued yesterday. This morning she looks a whole lot more alert but she is complaining that she is not being taken care of because those medications were discontinued. I have restarted her on her Suboxone at a lower dose. 8. Hypertension is improved. 9. Depression/anxiety disorder. Will start the patient on citalopram and also melatonin for insomnia. 10. Metabolic acidosis is improved. We would therefore cut down on the sodium bicarb to 650 three times per day. So today Ms. Silva is stable. She is a little bit grouchy because her sedatives and pain medications have been discontinued. We will restart her on the Suboxone at a lower dose and we started her on citalopram and melatonin. Patient is still about 9000 mL fluid overload. Will continue with the IV diuresis. Patient creatinine seems to be getting better, is progressively and slowly improving I think the acute insult was a cardiorenal type II which with the treatment of the underlying heart disease the kidney should also improve. cc: Clarence Iglesias MD [facility]
[2016-06-16] MEDS: MELATONIN PO SCH (21:48)
[2016-06-16] MEDS: LEXAPRO PO SCH (21:55)
[2016-06-17] MEDS: DUONEB (A & A) INH SCH ×5 (03:19→23:30)
[2016-06-17] MEDS: PRILOSEC PO SCH (06:42)
[2016-06-17] MEDS: LASIX IV SCH ×2 (06:42→17:50)
[2016-06-17] MEDS: MUCOMYST 20% PO SCH ×3 (09:24→23:30)
[2016-06-17] MEDS: PHOSLO PO SCH ×3 (09:27→17:49)
[2016-06-17] MEDS: NICODERM PATCH TD SCH (09:27)
[2016-06-17] MEDS: HUMULIN 70/30 SUBQ SCH ×2 (09:27→17:50)
[2016-06-17] MEDS: PLAVIX PO SCH (09:28)
[2016-06-17] MEDS: BIDIL PO SCH ×4 (09:28→17:32)
[2016-06-17] MEDS: LOPRESSOR PO SCH ×3 (09:28→22:11)
[2016-06-17] MEDS: SODIUM BICARBONATE PO SCH ×2 (09:28→22:11)
[2016-06-17] MEDS: ASPIRIN PO SCH (09:28)
[2016-06-17] MEDS: MIRALAX PO SCH (09:29)
[2016-06-17] MEDS: SUBOXONE 2 MG/0.5 MG SL SCH ×2 (09:29→22:10)
[2016-06-17] MEDS: ADVAIR 250/50 DISKUS INH SCH (09:30)
[2016-06-17] MEDS: LANTUS SUBQ SCH (12:25)
[2016-06-17 17:12] LABS: URINE CULTURE NEEDED? NO; URINE MICRO REVIEW NEEDED? NO; URINE SOURCE CATH
[2016-06-17 17:19] LABS: BILIRUBIN URINE NEGATIVE (NEGATIVE); BLOOD URINE NEGATIVE (NEGATIVE); COLOR YELLOW; GLUCOSE URINE NEGATIVE (NEGATIVE); LEUKOCYTES URINE NEGATIVE (NEGATIVE); NITRITE URINE NEGATIVE (NEGATIVE); PH URINE 5.5; PROTEIN URINE TRACE mg/dL (NEGATIVE); SP GRAVITY URINE 1.017; TURBIDITY URINE CLEAR (CLEAR); UROBILINOGEN URINE NORMAL (NORMAL)
[2016-06-17 17:20] LABS: UR EPITHELIAL CELLS <10 /HPF (<10); URINE BACTERIA NEGATIVE /HPF; URINE RBC <10 /HPF (<10); URINE WBC <10 /HPF (<10)
--- NOTE | 2016-06-17 18:47 | PROGRESS NOTE ---
DATE: 06/17/2016 SUBJECTIVE: Today Ms. Silva referred to be doing fine. She was a little bit happier today because her Suboxone was re-initiated. OBJECTIVE: Vital signs: Blood pressure is 92/70, pulse of 81, respirations 18 , temperature is 97.4 degrees. General: Ms. Silva is a 55-year-old, female. She was sitting up in a chair. She did not seem to be in any distress. HEENT: Mucosa is pink and moist. Anicteric. Acyanotic. Neck: Supple. Chest: Good air entry bilateral. Some bilateral crepitations were noted. Cardiovascular: Regular rate and rhythm. No murmurs. Abdomen: Soft, distended, but nontender. Extremities: 3+ to 4 pedal edema. Central Nervous System: Patient is alert and oriented x4. Did not seem to have any focal neurological deficit. LABORATORY DATA: Chemistry: Sodium is 136, potassium is 3.9, chloride is 95, bicarbonate is 26, BUN is 60, creatinine is 1.4. Urine output 1890. ASSESSMENT: 1. Congestive heart failure secondary to coronary artery disease. 2. [id number] myocardial infarction on presentation. Still patient is pending euvolemic status for left heart catheterization to be done. 3. Acute on chronic kidney disease. I think patient did have hepatorenal syndrome type 2. As the fluid overload is getting improved, kidney function seems to be also getting better. 4. History of coronary artery disease status post stent in the past noted. 5. Vitamin D deficiency. 6. Secondary hyperparathyroidism. 7. Drowsiness/lethargy due to oversedation, this has improved. We will make sure we stay away from sedatives as much as possible. 8. Hypertension improved. 9. Metabolic acidosis due to kidney disease. This is improving. 10. Depression/anxiety disorder. Patient is currently on citalopram. 11. Insomnia. We will start the patient on melatonin. In general, Ms. Silva is stable. She does have remarkable pedal edema and substantial fluid overload. She is getting IV Lasix. We are not 100% sure how precise is the urine documentation We will therefore put in a Holliday catheter and get a 24 hour urine collection to know the GFR and creatinine clearance. Patient needs a left heart catheterization done but Cardiology wants her euvolemic. Once she gets contrast I think the kidney is just going to go downhill and she will end up needing dialysis. Unfortunately I think Ms. Silva is going to be in the hospital for a little bit longer since we need to get her euvolemic before the left heart catheterization can be done. cc: Clarence Iglesias MD [facility]
[2016-06-17] MEDS: LEXAPRO PO SCH (22:10)
[2016-06-17] MEDS: LIPITOR PO SCH (22:11)
[2016-06-17] MEDS: MELATONIN PO SCH (22:11)
[2016-06-18] MEDS: DUONEB (A & A) INH SCH ×4 (03:45→21:31)
[2016-06-18] MEDS: LASIX IV SCH ×2 (06:18→17:17)
[2016-06-18] MEDS: PRILOSEC PO SCH (06:18)
[2016-06-18 07:34] LABS: CALCIUM 8.8 mg/dL (8.8-10.2); POTASSIUM 3.8 mmol/L (3.5-5.1)
[2016-06-18] MEDS: ASPIRIN PO SCH ×2 (07:55→08:07)
[2016-06-18] MEDS: NICODERM PATCH TD SCH ×2 (07:55→08:08)
[2016-06-18] MEDS: PLAVIX PO SCH ×2 (07:55→08:08)
[2016-06-18] MEDS: MUCOMYST 20% PO SCH ×3 (07:55→21:31)
[2016-06-18] MEDS: SODIUM BICARBONATE PO SCH ×2 (07:56→08:08)
[2016-06-18] MEDS: HUMULIN 70/30 SUBQ SCH ×2 (07:56→17:18)
[2016-06-18] MEDS: PHOSLO PO SCH ×3 (07:56→17:18)
[2016-06-18] MEDS: LANTUS SUBQ SCH ×2 (07:56→08:08)
[2016-06-18] MEDS: SUBOXONE 2 MG/0.5 MG SL SCH ×2 (08:07→20:30)
[2016-06-18] MEDS: BIDIL PO SCH ×3 (08:07→20:28)
[2016-06-18] MEDS: MIRALAX PO SCH (08:08)
[2016-06-18] MEDS: LOPRESSOR PO SCH ×2 (08:08→20:28)
[2016-06-18] MEDS: ADVAIR 250/50 DISKUS INH SCH (08:55)
[2016-06-18] MEDS: XANAX PO PRN ×2 (11:48→20:31)
[2016-06-18] MEDS ORDERED: INSULIN PEN NEEDLES ONE (13:39)
--- NOTE | 2016-06-18 14:09 | PROGRESS NOTE ---
DATE: 06/18/2016 SUBJECTIVE: This morning, Ms. Mack Silva refers to be doing fine. She has been sleeping okay. According to her, she occasionally gets panic attacks so she would prefer to have something for anxiety. OBJECTIVE: Vital signs: Blood pressure is 192/63, pulse 70, respiration is 18, temperature is 97.4 degrees. General: Ms. Silva is a 55-year-old female. She was sitting up in the chair, not in any distress. HEENT: Mucosa is pink and moist. Anicteric. Acyanotic. Neck: Supple. Chest: Good air entry bilateral. She has a few bibasilar crepitations. Cardiovascular: Regular rate and rhythm. No murmurs, no rubs. No gallops. Abdomen: Soft, distended, but nontender. Bowel sounds are present. Extremities: About 3+ pedal edema. CHILLING HOOD OPERATOR: Patient is alert and oriented. No focal neurological deficit. LABORATORY DATA: Chemistry: Sodium is 136, potassium is 3.8, chloride is 95, bicarb is 28, BUN is 47, creatinine is 1.3. ASSESSMENT: 1. Fluid overload likely due to congestive heart failure. 2. Non ST elevation myocardial infarction. On presentation patient is pending the euvolemic status for left heart catheterization. 3. Acute on chronic kidney disease likely due to cardio renal syndrome type 2. This is improving as we improve on the patient's cardiac parameters. 4. History of coronary artery disease status post stents in the past. 5. Vitamin D deficiency. We will continue to supplement this. 6. Secondary hyperparathyroidism. 7. Drowsiness/lethargy due to over sedation. All sedatives have been discontinued. However patient continues to have spells of some anxiety. We would be judicious with the use of sedatives from now going forward. 8. Hypertension. Controlled. 9. Depression anxiety disorder. Patient is currently on Lexapro and will add p.r.n. Xanax at 0.125. 10. Insomnia. Patient is on melatonin and she is doing better. So in general I think Ms. Silva is getting better. She still has a total of positive 6371 fluid balance. Patient is having adequate urine output. We are still doing a 24 urine collection to have a better sense of the creatinine clearance and GFR but from the labs patient's creatinine is improving and hopefully we can get her euvolemic for the left heart catheterization. cc: Clarence Iglesias MD
[2016-06-18 18:34] LABS: UR CREATININE 67.6 mg/dL (11-20); UR PROTEIN 20.5 mg/dL
[2016-06-18 18:57] LABS: UR CREATININE TOTAL 1149.2 mg/24 (600-1600)
[2016-06-18] MEDS: LIPITOR PO SCH (20:28)
[2016-06-18] MEDS: LEXAPRO PO SCH (20:28)
[2016-06-18] MEDS: MELATONIN PO SCH (23:07)
[2016-06-19] MEDS: DUONEB (A & A) INH SCH ×4 (04:32→22:50)
[2016-06-19] MEDS: PRILOSEC PO SCH ×2 (05:58→06:01)
[2016-06-19] MEDS: XANAX PO PRN ×3 (05:58→21:43)
[2016-06-19] MEDS: LASIX IV SCH ×2 (05:58→17:18)
[2016-06-19 06:30] LABS: MANUAL DIFF NEEDED? NO
[2016-06-19 06:47] LABS: BASO% 0.5 % (0.0-0.8); EOS# 0.32 X1000 (0.0-0.7); EOS% 3.1 % (0.0-10.0); HEMATOCRIT 35.1 % (37.0-47.0); HEMOGLOBIN 10.6 g/dL (12.0-16.0); IMM GRAN# 0.02 X1000 (0.0-0.04); IMM GRAN% 0.2 % (0.0-0.5); LYMPH# 1.96 X1000 (1.2-3.4); MCH 27.7 PG (27-31); MCHC 30.2 g/dL (33-37); MCV 91.9 FL (81-99); MONO# 0.93 X1000 (0.11-0.59); NEUT% 68.2 % (42.2-75.2); PLT 239 X1000 (130-400); RBC 3.82 XMIL (4.2-5.4)
[2016-06-19 07:05] LABS: CALCIUM 8.7 mg/dL (8.8-10.2); POTASSIUM 3.7 mmol/L (3.5-5.1)
[2016-06-19] MEDS: MIRALAX PO SCH (08:05)
[2016-06-19] MEDS: PHOSLO PO SCH ×3 (08:08→17:18)
[2016-06-19] MEDS: ASPIRIN PO SCH (08:08)
[2016-06-19] MEDS: PLAVIX PO SCH (08:08)
[2016-06-19] MEDS: BIDIL PO SCH ×3 (08:13→21:41)
[2016-06-19] MEDS: HUMULIN 70/30 SUBQ SCH ×2 (08:13→16:56)
[2016-06-19] MEDS: LOPRESSOR PO SCH ×2 (08:14→21:41)
[2016-06-19] MEDS: NICODERM PATCH TD SCH (08:14)
[2016-06-19] MEDS: LANTUS SUBQ SCH (08:15)
[2016-06-19] MEDS: SUBOXONE 2 MG/0.5 MG SL SCH ×2 (08:38→21:41)
[2016-06-19] MEDS: ADVAIR 250/50 DISKUS INH SCH (09:23)
[2016-06-19] MEDS: MUCOMYST 20% PO SCH ×2 (13:03→21:43)
--- NOTE | 2016-06-19 17:48 | PROGRESS NOTE ---
DATE: 06/19/2016 SUBJECTIVE: Today Ms. Silva refers to be doing a little better. She was more delightful today. OBJECTIVE: Vital signs: Blood pressure 88/59, pulse 70, respiration 13, temperature 97.7 degrees. General examination: Ms. Silva is a 55-year-old, female. She was sitting up in the chair in no distress. HEENT: Mucosa is pink and moist. Anicteric. Acyanotic. Neck: Supple. Chest: Good air entry bilateral. There is some posterior coarse crepitations. Cardiovascular: Regular rate and rhythm. No murmurs, no rubs, no gallops. Abdomen: Soft, distended, but nontender. Extremities: 3+ pedal edema. Central Nervous System : Patient is alert, oriented x4. LABORATORY DATA: WBC is 10.3, hemoglobin is 10.6, platelet count of 239. Chemistry is reviewed. Creatinine is 1.3, Bun 24, urine creatinine clearance is 61 which is not horrible. ASSESSMENT: 1. Fluid overload due to congestive heart failure. 2. [id number] myocardial infarction. Patient presented with ridiculously high troponins, however, she is still pending euvolemic status for left heart catheterization. We will continue aggressively using diuretic therapy. 3. Acute on chronic kidney disease likely due to cardiorenal syndrome type 2. Creatinine is now 1.3 and it has remained so for the past 2 days. I think that is probably patient's baseline creatinine. 4. History of coronary artery disease status post stents in the past. 5. Vitamin D deficiency. 6. Hypertension controlled. 7. Depression/anxiety disorder. Patient feels a whole lot better now. We started her on some medications. 8. Insomnia improved. In general, Ms. Silva is doing a little better from a general medical standpoint but she still has remarkable pedal edema and fluid on board. Her 24 hour urine collection is consistent with CKD 3A. We will continue using diuretics to see we can improve her hydration status to euvolemic for the left heart catheterization to be done. We are still on depending on Cardiology as well as Nephrology for further recommendation and guidance in the care of Ms. Silva. cc: Clarence Iglesias MD [facility]
[2016-06-19] MEDS: MELATONIN PO SCH (21:42)
[2016-06-19] MEDS: LIPITOR PO SCH (21:43)
[2016-06-19] MEDS: LEXAPRO PO SCH (21:43)
[2016-06-20] MEDS: XANAX PO PRN (02:16)
[2016-06-20] MEDS: TYLENOL PO PRN ×2 (02:19→13:42)
[2016-06-20] MEDS: DUONEB (A & A) INH SCH ×4 (03:35→20:13)
[2016-06-20] MEDS: LASIX IV SCH ×3 (04:28→22:54)
[2016-06-20] MEDS: PRILOSEC PO SCH ×2 (04:30→06:08)
[2016-06-20 07:03] LABS: CALCIUM 8.7 mg/dL (8.8-10.2); POTASSIUM 4.1 mmol/L (3.5-5.1)
--- NOTE | 2016-06-20 08:32 | PROGRESS NOTE ---
DATE: 06/20/2016 CHIEF COMPLAINT: Shortness of breath and swelling. SUBJECTIVE: Ms. Silva is still having issues with orthopnea. She cannot lay flat. She has been sitting upright in the chair. Her legs are still very swollen. She denies having any chest pain. She says that ever so often she gets "panic attacks". OBJECTIVE: Vital signs: Blood pressure is 88/43, temperature 97.5, pulse 60, and respirations 18. General: She is awake and chronically ill. HEENT: Jugular veins are distended up to 10 cm above the angle of Fly. Respiratory: The chest shows diffusely diminished breath sounds bilaterally, especially over the left base where there is dullness to percussion. Cardiovascular: Heart sounds are regular and rhythmic. I do not hear a gallop or murmur. Abdomen: The abdomen is obese, distended, and nontender. No hepatomegaly is noted. Extremities: The extremities show 3+ edema. Pulses are markedly diminished. She has multiple discoloration spots in both legs. LABORATORY DATA: Blood work today: Sodium is 139, potassium 4.1, BUN 54, creatinine 1.5, glucose 144, and calcium 8.7. She had a creatinine clearance done 2 days ago that showed a clearance of 61 mL. Protein was 349 mg over 24 hours. IMPRESSION: 1. A patient who has persistent edema. This is almost anasarca-like. This probably has to do with congestive heart failure both systolic and diastolic dysfunction. 2. Previous non-ST myocardial infarction. 3. Severe coronary artery disease. 4. A patient who has renal insufficiency. 5. Peripheral vascular disease. RECOMMENDATIONS: At this point in time the patient is really still fluid overloaded. I will add metolazone 2.5 mg twice a day to her regimen as well as digoxin. We really need to cut down her fluid intake and I need the cooperation of the nursing staff and also the primary service to enforce this. We need to weigh her accurately every day on a step on scale or a standing scale. We will see how she progresses. At this time she has already been in the hospital for 3 weeks and I do not believe we are making any significant positive change in her condition. We will follow her along with you. I will request a follow-up chest x-ray at this point. The last one was done on 06/14/2016. In fact, we might be better off getting a CT scan of the chest to see if she has significant pleural effusions at this point in time. Further advice will be forthcoming. cc: Duncan Gross MD
[2016-06-20] MEDS: PLAVIX PO SCH (08:34)
[2016-06-20] MEDS: PHOSLO PO SCH ×3 (08:34→18:44)
[2016-06-20] MEDS: BIDIL PO SCH ×3 (08:35→18:44)
[2016-06-20] MEDS: SUBOXONE 2 MG/0.5 MG SL SCH ×2 (08:35→21:57)
[2016-06-20] MEDS: LANTUS SUBQ SCH (08:35)
[2016-06-20] MEDS: ASPIRIN PO SCH (08:35)
[2016-06-20] MEDS: MIRALAX PO SCH (08:36)
[2016-06-20] MEDS: LOPRESSOR PO SCH ×2 (08:36→21:57)
[2016-06-20] MEDS: NICODERM PATCH TD SCH (08:47)
[2016-06-20] MEDS: LANOXIN IV SCH ×2 (08:48→13:49)
[2016-06-20] MEDS: HUMULIN 70/30 SUBQ SCH ×2 (08:55→18:41)
[2016-06-20] MEDS ORDERED: ZAROXOLYN PO SCH (09:00)
[2016-06-20] MEDS: ADVAIR 250/50 DISKUS INH SCH (09:39)
[2016-06-20] MEDS: MUCOMYST 20% PO SCH ×2 (09:39→23:07)
--- NOTE | 2016-06-20 09:43 | Diag Imaging Result Document ---
PROCEDURE NAME: CHEST-2 VIEWS - 06/20/2016 TWO VIEWS OF THE CHEST: FINDINGS: There are bilateral pleural effusions. The quantity of fluid on the right may be slightly greater than on 06/14/2016. There are patchy alveolar opacities bilaterally. This may be slightly improved in the left upper lobe since the previous study. There may be slight worsening on the right side particularly in the perihilar right upper lobe. IMPRESSION: Waxing and waning alveolar opacities. Worsened right pleural effusion.
--- NOTE | 2016-06-20 15:11 | PROGRESS NOTE ---
DATE: 06/20/2016 SUBJECTIVE: Today, Ms. Silva refers to be doing fine. Denies any complaints. OBJECTIVE: Vital signs: Blood pressure is 88/52, pulse 69, respirations 20, temperature 98.2 degrees. General: Ms. Silva is a 55-year-old female. She was sitting up in a chair. She was not in any distress. HEENT: Mucosa pink and moist. Anicteric. Acyanotic. Neck: Supple. Chest: Good air entry bilaterally. There are a few bibasilar crepitations. Cardiovascular: Regular rate and rhythm. Abdomen: Soft. It is distended, but nontender. Extremities: Pedal edema 3+, extending all the way to the abdominal wall. Central Nervous System: Patient is alert and oriented. LABORATORY DATA: Chemistry is reviewed. BUN is 54. Creatinine is 1.5. ASSESSMENT: 1. Fluid overload due to congestive heart failure. The patient has been on Lasix for some time. We have not seen any remarkable improvement in her fluid status. I think some changes have been done. Other medications have been added as per Cardiology. I will do a TSH level, as well, just to make sure some of this fluid retention is not from severe hypothyroidism. 2. Non-ST elevation myocardial infarction on presentation. Patient is awaiting euvolemic status for left heart catheterization. 3. Acute kidney injury on basis of chronic kidney disease. Stable. 4. History of coronary artery disease, status post stents in the past. 5. Vitamin D deficiency. We will continue on replacement. 6. Hypertension. Controlled. Actually, the blood pressures are a little bit on the lower side. The patient is not symptomatic and is doing fine, so we will keep an eye on her. 7. Depression/anxiety disorder. We will continue with the current medication. 8. Insomnia. Improved. So, in general, Ms. Silva continues to be stable. Her I's and O's continue to be, in general, positive. We will encourage daily weight and also limit her fluid intake. Cardiology has added metolazone to the Lasix to enhance the diuretic effect. Will do a TSH level to see that we are not dealing with an underlying hypothyroidism. cc: Clarence Iglesias MD
[2016-06-20] MEDS: ZAROXOLYN PO SCH (21:56)
[2016-06-20] MEDS: LIPITOR PO SCH (21:56)
[2016-06-20] MEDS: MELATONIN PO SCH (21:57)
[2016-06-20] MEDS: LEXAPRO PO SCH (21:57)
[2016-06-21] MEDS: XANAX PO PRN ×2 (00:55→22:11)
[2016-06-21] MEDS: DUONEB (A & A) INH SCH ×4 (04:09→20:25)
[2016-06-21] MEDS: LANOXIN IV SCH ×2 (04:47→08:29)
[2016-06-21] MEDS: PRILOSEC PO SCH (06:22)
[2016-06-21 06:58] LABS: CALCIUM 8.8 mg/dL (8.8-10.2); POTASSIUM 3.3 mmol/L (3.5-5.1)
--- NOTE | 2016-06-21 07:14 | EKG Report ---
Test Performed on : 06/21/2016 06:28:59 AM Test Reason : ID/CHF Blood Pressure : / mmHG Vent. Rate : 064 BPM Atrial Rate : 064 BPM P-R Int : 192 ms QRS Dur : 096 ms QT Int : 410 ms P-R-T Axes : 025 049 -61 degrees QTc Int : 422 ms Normal sinus rhythm. Low voltage QRS Possible Anterolateral infarct (cited on or before 26-MAY-2013) Abnormal ECG When compared with ECG of 10-JUN-2016 06:51, No significant change was found Confirmed by John EDMONDSON, Chris Dias ([id number]) on 06/22/2016 10:00:00 AM
[2016-06-21] MEDS: SUBOXONE 2 MG/0.5 MG SL SCH ×2 (08:17→21:05)
[2016-06-21] MEDS: ZAROXOLYN PO SCH ×2 (08:18→20:16)
[2016-06-21] MEDS: PHOSLO PO SCH ×3 (08:18→17:31)
[2016-06-21] MEDS: ASPIRIN PO SCH (08:19)
[2016-06-21] MEDS: MIRALAX PO SCH (08:24)
[2016-06-21] MEDS: MUCOMYST 20% PO SCH ×2 (08:25→21:07)
[2016-06-21] MEDS: NICODERM PATCH TD SCH (08:26)
[2016-06-21] MEDS: LASIX IV SCH ×2 (08:30→21:06)
[2016-06-21] MEDS: BIDIL PO SCH ×3 (08:31→17:31)
[2016-06-21] MEDS: LOPRESSOR PO SCH ×2 (08:33→21:07)
[2016-06-21] MEDS: HUMULIN 70/30 SUBQ SCH ×2 (08:37→17:31)
[2016-06-21] MEDS: PLAVIX PO SCH (08:40)
[2016-06-21] MEDS: LANTUS SUBQ SCH (08:44)
[2016-06-21] MEDS: ADVAIR 250/50 DISKUS INH SCH (09:21)
--- NOTE | 2016-06-21 16:13 | PROGRESS NOTE ---
DATE: 06/21/2016 SUBJECTIVE: Today Ms. Oracio maharaj was sitting up in a chair. She did not have any complaints. OBJECTIVE: Vital signs: Blood pressure is 117/57, pulse of 89, respiration is 19, temperature is 97.9 degrees. General: Physical exam is unchanged from days before. Specifically patient continues to have about 3 to 4+ pedal edema bilateral which extends to her abdomen. LABORATORY DATA: Chemistry is reviewed. Creatinine is 1.3. BUN is 57. Potassium is 3.3. TSH is 1.59, free T4 is normal. INS AND OUTS: The patient had a total of 2250 urine output for a negative balance of 1770. ASSESSMENT: 1. Fluid overload due to congestive heart failure. We will continue with diureses. 2. Non ST elevation myocardial infarction on presentation. Patient is pending left heart catheterization. 3. Acute on chronic kidney disease. Stable. 4. History of coronary artery disease status post stents in the past. Noted. 5. Vitamin D deficiencies. 6. Hypertension. Controlled. 7. Depression/anxiety disorder. Improved. I think Ms. Silva has continued to have adequate diureses. We would continue with the diuretic therapy instituted by Cardiology and see if we can get her euvolemic for the left heart catheterization. cc: Clarence Iglesias MD
[2016-06-21] MEDS: TYLENOL PO PRN (17:37)
[2016-06-21] MEDS: LIPITOR PO SCH (21:06)
[2016-06-21] MEDS: LEXAPRO PO SCH (21:06)
[2016-06-21] MEDS: MELATONIN PO SCH (21:08)
[2016-06-22] MEDS: DUONEB (A & A) INH SCH ×5 (04:08→20:57)
[2016-06-22] MEDS: PRILOSEC PO SCH (06:05)
[2016-06-22] MEDS: XANAX PO PRN ×2 (06:05→18:03)
[2016-06-22 07:25] LABS: POTASSIUM 3.4 mmol/L (3.5-5.1)
[2016-06-22] MEDS: PHOSLO PO SCH ×3 (07:44→17:10)
[2016-06-22] MEDS: ADVAIR 250/50 DISKUS INH SCH (08:19)
[2016-06-22] MEDS: HUMULIN 70/30 SUBQ SCH ×2 (09:10→17:10)
[2016-06-22] MEDS: MIRALAX PO SCH (09:10)
[2016-06-22] MEDS: ASPIRIN PO SCH (09:11)
[2016-06-22] MEDS: LANOXIN IV SCH (09:11)
[2016-06-22] MEDS: ZAROXOLYN PO SCH ×2 (09:11→21:09)
[2016-06-22] MEDS: BIDIL PO SCH ×3 (09:11→17:10)
[2016-06-22] MEDS: LOPRESSOR PO SCH ×2 (09:11→21:09)
[2016-06-22] MEDS: PLAVIX PO SCH (09:14)
[2016-06-22] MEDS: SUBOXONE 2 MG/0.5 MG SL SCH ×2 (09:14→21:07)
[2016-06-22] MEDS: NICODERM PATCH TD SCH (09:14)
[2016-06-22] MEDS: POTASSIUM CHLORIDE 20% LIQUID PO SCH ×2 (09:26→21:09)
[2016-06-22] MEDS: LASIX IV SCH ×2 (10:14→22:00)
[2016-06-22] MEDS: LANTUS SUBQ SCH (10:14)
[2016-06-22] MEDS: MUCOMYST 20% PO SCH ×2 (10:17→21:19)
[2016-06-22] MEDS: KEFZOL 1 GM/D5W 1 GM/50 ML IVPB IV SCH ×2 (11:15→21:24)
--- NOTE | 2016-06-22 11:47 | PROGRESS NOTE ---
DATE: 06/22/2016 SUBJECTIVE: Today, Ms. Silva refers to be doing relatively fine. She continues to have significant lower extremity edema. She did complain of some pain in the right lower leg. OBJECTIVE: Vital Signs: Blood pressure is 111/74, pulse of 65, respirations 20, temperature is 98.2 degrees. General: Ms. Silva is a 55-year-old female. She was sitting up in the chair. No distress. HEENT: Mucosa is pink and moist. Anicteric. Acyanotic. Neck: Neck is supple. Chest: Good air entry bilaterally. Few bibasilar crepitations. Cardiovascular: Regular rate and rhythm. Abdomen: Soft, distended, there is fluid in the abdominal wall. Extremities: With 3+ pedal edema. SIGNWRITER: Patient is alert and oriented. Specifically on the lower extremities there is bilateral erythematous changes in both legs more so on the right than the left. There is also some blister/bullae formation on the right lower extremity. LABORATORY DATA: Sodium is 139, potassium is 3.4, chloride is 93, bicarbonate is 29, creatinine is 1.3. The patient has a negative balance of -5920 yesterday, has now accumulated -3259. ASSESSMENT: 1. Fluid overload secondary to congestive heart failure. We will continue with the diuretic therapy. 2. Non-ST elevation MT on presentation. Patient is pending cardiac workup. 3. Cardiac work up when she is euvolemic. 4. Acute on chronic kidney disease. Stable. 5. History of coronary artery disease status post stents in the past. 6. Vitamin D deficiencies. 7. Hypertension controlled. 8. Depression/anxiety disorder. Improved. 9. Suspected bilateral lower extremity cellulitis more on the right than the left. PLAN: We are going to start the patient on Ancef IV antibiotics to see if that will improve. I think some of it too could just be venous insufficiency drainage from the excessive edema but I think that there is some superimposed cellulitis. cc: Clarence Iglesias MD
--- NOTE | 2016-06-22 12:07 | PROGRESS NOTE ---
DATE: 06/22/2016 CHIEF COMPLAINT: Swelling of the legs, shortness of breath. SUBJECTIVE: Mrs. Silva is still somewhat short of breath. She has better diuresis since we added metolazone. She is diuresing about close to 6 L a day. Her weight, unfortunately, is not recorded here. Her swelling is getting worse. She does have blisters on the right leg now. There is redness in both legs. That is probably consistent with peripheral vascular disease that is probably getting worse with possible superimposed cellulitis. OBJECTIVE: Vital signs: Blood pressure right now is 111/78, temperature is 97.2, pulse 65, respirations 20. General: She is awake, alert, in no distress. HEENT: Slightly prominent jugular veins. Chest: Diminished breath sounds at bases. Cardiac: Heart sounds regular and rhythmic. I do not hear gallop or murmur. Abdomen: Obese. Extremities: 2+ to 3+ edema with blisters, redness, markedly diminished pulses. BLOOD WORK: Sodium 139, potassium 3.4, BUN 60, creatinine 1.3. IMPRESSION: 1. Patient with severe congestive heart failure, systolic plus diastolic dysfunction. She has significant edema of the lower extremities. 2. Chronic kidney disease. 3. Severe coronary heart disease. 4. Peripheral vascular obstructive disease. 5. Possible cellulitis of the right leg. RECOMMENDATION: We may have to consider antibiotics along the lines of Keflex or cephalosporins and consider a consultation with Infectious Disease and possibly Vascular Surgery. This patient's overall prognosis is really very serious right now. I am afraid we may not be able to get her to a point where we can do any cardiac tests on her. Will see how she does over the next 2 or 3 days. cc: Duncan Gross MD [facility]
[2016-06-22] MEDS: TYLENOL PO PRN ×2 (15:45→23:31)
[2016-06-22] MEDS: LIPITOR PO SCH (21:08)
[2016-06-22] MEDS: LEXAPRO PO SCH (21:09)
[2016-06-22] MEDS: MELATONIN PO SCH (21:10)
[2016-06-23] MEDS: XANAX PO PRN ×2 (01:34→21:14)
[2016-06-23] MEDS: KEFZOL 1 GM/D5W 1 GM/50 ML IVPB IV SCH ×3 (03:04→18:26)
[2016-06-23] MEDS: DUONEB (A & A) INH SCH ×5 (03:23→21:50)
[2016-06-23] MEDS: PRILOSEC PO SCH (06:02)
[2016-06-23 06:47] LABS: CALCIUM 9.3 mg/dL (8.8-10.2); POTASSIUM 3.5 mmol/L (3.5-5.1)
[2016-06-23] MEDS: MIRALAX PO SCH (08:42)
[2016-06-23] MEDS: MUCOMYST 20% PO SCH (08:42)
[2016-06-23] MEDS: POTASSIUM CHLORIDE 20% LIQUID PO SCH ×2 (08:43→20:46)
[2016-06-23] MEDS: ASPIRIN PO SCH (08:46)
[2016-06-23] MEDS: ZAROXOLYN PO SCH ×2 (08:46→20:47)
[2016-06-23] MEDS: HUMULIN 70/30 SUBQ SCH ×2 (08:46→16:17)
[2016-06-23] MEDS: PHOSLO PO SCH ×3 (08:46→16:17)
[2016-06-23] MEDS: NICODERM PATCH TD SCH (08:46)
[2016-06-23] MEDS: LANOXIN IV SCH (08:47)
[2016-06-23] MEDS: BIDIL PO SCH ×3 (08:47→16:17)
[2016-06-23] MEDS: PLAVIX PO SCH (08:47)
[2016-06-23] MEDS: LOPRESSOR PO SCH ×3 (08:47→21:04)
[2016-06-23] MEDS: LANTUS SUBQ SCH (08:48)
[2016-06-23] MEDS: SUBOXONE 2 MG/0.5 MG SL SCH ×2 (08:58→21:06)
[2016-06-23] MEDS: ADVAIR 250/50 DISKUS INH SCH (09:37)
[2016-06-23] MEDS: LASIX IV SCH ×3 (09:45→21:07)
[2016-06-23] MEDS: CALMOSEPTINE OINTMENT TOP PRN (10:55)
--- NOTE | 2016-06-23 12:33 | PROGRESS NOTE ---
DATE: 06/23/2016 CHIEF COMPLAINT: Shortness of breath, swelling. SUBJECTIVE: Ms. Silva remains pretty much edematous and with very little difference when compared to the way she looked yesterday. OBJECTIVE: Blood pressure is 100/52, temperature 98.1, pulse 65, respirations 18. She is awake, alert, chronically ill. HEENT is unremarkable. Chest: Diminished breath sounds with some fine crepitans, especially over the left base. Heart sounds are regular and rhythmic. I do not hear any definite gallop or murmur. Extremities showed 2 to 3+ edema with redness, and now there are a definite bunch of blisters on the dorsal aspect of the right foot. Neurologic: She follows commands and moves all 4 extremities. DIAGNOSTIC DATA: Sodium is 140, potassium 3.5, BUN is 55, creatinine 1.3. IMPRESSION: 1. Non ST elevation endation.WA. 2. History of severe ASHD. 3. CHF both systolic and diastolic. 4. terminal gauger tobacco user. 5. Severe peripheral obstructive coronary artery disease. 6. Chronic kidney disease. Recommendation: The patient is with diffuse generalized edema. We have been trying to promote diuresis by combining furosemide at pretty good doses and metolazone. Initially she has had some response to it; however, she continues to develop significant edema. At this point in time, we will probably consider asking the vascular surgeons to take a look at her and see if they could perform some intervention to minimize the swelling of the lower extremities, and the blisters that have developed need to be taken care of. I will probably add some spironolactone to her regimen since she has a tendency to have a low potassium with the metolazone and Lasix. We will see how she does.At this point in time, I do not anticipate performing any noninvasive or invasive evaluation of her coronary artery disease until she is completely able to lie flat on her back , and at this time she is still orthopneic. Thank you for the opportunity to participate in her evaluation. cc: Duncan Gross MD [facility] [place]
[2016-06-23] MEDS: ALDACTONE PO SCH ×2 (13:06→20:47)
--- NOTE | 2016-06-23 14:16 | PROGRESS NOTE ---
DATE: 06/23/2016 SUBJECTIVE: Ms. Silva referred to be doing okay. She denies any complaint. She was still sitting down with the legs hanging down. OBJECTIVE: Vital signs: Blood pressure is 100/52, pulse 64, respirations 20, temperature is 98.1 degrees. General: Ms. Silva is a 55-year-old female. She was sitting up in the chair in no distress. HEENT: Mucosa is pink and moist. Anicteric. Acyanotic. Neck: Supple. Chest: Good air entry bilaterally. Few bibasilar crepitations. Cardiovascular: Regular rate and rhythm. Abdomen: Soft, distended. There are fluid infiltrates in the abdominal wall. Extremities: Three to 4+ pedal edema. Lower extremities also show remarkable distal erythema with blisters on the right leg. One of them is ruptured with oozing. Central Nervous System: Patient is alert and oriented. LABORATORY DATA: Chemistry: Sodium is 140, potassium is 3.5, chloride 95, bicarb is 21, BUN is 55, creatinine is 1.1. The patient's I's and O's had 2400 urine output for a negative balance of 2010. The patient has a total negative balance of 5149. ASSESSMENT: 1. Fluid overload secondary to congestive heart failure. 2. Bhh-AZ-rbwqhej elevation myocardial infarction on presentation. Patient is still pending ischemic workup. 3. Acute on chronic kidney disease. The patient's creatinine continues to be stable. 4. History of coronary artery disease with stents in the past. 5. Vitamin D deficiencies. 6. Hypertension, controlled. 7. Depressed/anxiety disorder, improved. 8. Bilateral lower extremity cellulitis, more on the right than the left. Patient is currently on antibiotics. I did discuss the case today with Dr. Gross, the fine grade bulldozer operator mortgage protection sales. From his assessment he does not think he is going to do any more ischemic workup. He recommends Wound Care to see the patient because of the blisters and see if there is any recommendation to put elastic bands or any other support to help with venous drainage. cc: Clarence Iglesias MD
[2016-06-23] MEDS: TYLENOL PO PRN (16:17)
[2016-06-23] MEDS: LEXAPRO PO SCH (20:47)
[2016-06-23] MEDS: MELATONIN PO SCH (20:47)
[2016-06-23] MEDS: LIPITOR PO SCH (20:48)
[2016-06-24] MEDS: MUCOMYST 20% PO SCH ×3 (00:27→23:04)
[2016-06-24] MEDS: TYLENOL PO PRN ×2 (00:31→06:36)
[2016-06-24] MEDS: XANAX PO PRN ×2 (02:50→15:25)
[2016-06-24] MEDS ORDERED: NS 1,000 ML IV ONE ×2 (02:59→05:04)
[2016-06-24] MEDS: LASIX IV SCH ×3 (04:32→11:47)
[2016-06-24] MEDS: KEFZOL 1 GM/D5W 1 GM/50 ML IVPB IV SCH ×3 (04:43→19:25)
[2016-06-24] MEDS: DUONEB (A & A) INH SCH ×4 (05:39→20:57)
--- NOTE | 2016-06-24 06:28 | EKG Report ---
Test Performed on : 06/23/2016 06:45:46 AM Test Reason : [place]/CHF Blood Pressure : / mmHG Vent. Rate : 067 BPM Atrial Rate : 060 BPM P-R Int : 198 ms QRS Dur : 096 ms QT Int : 408 ms P-R-T Axes : 033 -03 -67 degrees QTc Int : 431 ms Suspect unspecified pacemaker failure Sinus rhythm. with frequent premature ventricular complexes. Low voltage QRS Possible Anterolateral infarct (cited on or before 26-MAY-2013) Abnormal ECG When compared with ECG of 22-JUN-2016 06:33, (Unconfirmed) Questionable change in QRS axis Unconfirmed Result
[2016-06-24] MEDS: PRILOSEC PO SCH (06:36)
[2016-06-24] MEDS: PHOSLO PO SCH ×3 (08:11→17:39)
[2016-06-24] MEDS: ZAROXOLYN PO SCH (08:11)
[2016-06-24] MEDS: SUBOXONE 2 MG/0.5 MG SL SCH (08:11)
[2016-06-24] MEDS: HUMULIN 70/30 SUBQ SCH ×2 (08:12→17:40)
[2016-06-24 08:17] LABS: CALCIUM 9.4 mg/dL (8.8-10.2); POTASSIUM 4.1 mmol/L (3.5-5.1)
--- NOTE | 2016-06-24 08:19 | Diag Imaging Result Document ---
PROCEDURE NAME: RIBS UNILAT W/PA CHEST LEFT - 06/24/2016 LEFT RIBS AND PA CHEST 5 VIEWS: FINDINGS: There is no definite left rib fracture identified. PA chest shows bilateral infiltrates and pleural effusions which appear essentially stable compared to 06/20/2016. There is no pneumothorax identified. Heart size is within normal limits. IMPRESSION: No left rib fracture identified. Stable bilateral infiltrates and pleural effusions.
--- NOTE | 2016-06-24 08:40 | EKG Report ---
Test Performed on : 06/22/2016 06:33:08 AM Test Reason : [place]/CHF Blood Pressure : / mmHG Vent. Rate : 068 BPM Atrial Rate : 068 BPM P-R Int : 188 ms QRS Dur : 094 ms QT Int : 400 ms P-R-T Axes : 040 093 -54 degrees QTc Int : 425 ms Sinus rhythm. with occasional premature ventricular complexes. Low voltage QRS Anterolateral infarct (cited on or before 26-MAY-2013) Abnormal ECG When compared with ECG of 21-JUN-2016 06:28, (Unconfirmed) premature ventricular complexes. are now present Confirmed by John EDMONDSON, Chris Dias ([id number]) on 06/25/2016 12:37:24 PM
[2016-06-24] MEDS: ADVAIR 250/50 DISKUS INH SCH (09:25)
[2016-06-24] MEDS: LANTUS SUBQ SCH (09:52)
[2016-06-24] MEDS: NICODERM PATCH TD SCH (09:53)
[2016-06-24] MEDS: ASPIRIN PO SCH (09:53)
[2016-06-24] MEDS: PLAVIX PO SCH (09:53)
[2016-06-24] MEDS: BIDIL PO SCH ×4 (09:53→16:59)
[2016-06-24] MEDS: ALDACTONE PO SCH ×2 (09:53→23:04)
[2016-06-24] MEDS: LANOXIN IV SCH (09:54)
[2016-06-24] MEDS: LOPRESSOR PO SCH ×2 (09:56→10:05)
[2016-06-24] MEDS: MIRALAX PO SCH (09:57)
[2016-06-24] MEDS: POTASSIUM CHLORIDE 20% LIQUID PO SCH ×2 (09:58→23:05)
--- NOTE | 2016-06-24 15:11 | PROGRESS NOTE ---
DATE: 06/24/2016 SUBJECTIVE: Today Ms. Silva continues to be stable with no acute complaints. OBJECTIVE: Vital signs: Blood pressure 92/62, pulse of 67, respirations is 23 , temperature 97.9 degrees. General Examination: Ms. Silva is a 55-year-old female. She was sitting up in the chair. No distress. HEENT: Mucosa is pink and moist. Anicteric. Acyanotic. Neck: Supple. Chest: Air entry is bilaterally reduced. A few coarse crepitations. Cardiovascular: Regular rate and rhythm. No murmurs, no rubs, no gallops. Abdomen: Soft, distended, nontender. Bowel sounds are present. Extremities: There is 4+ pedal edema. Lower extremities also show remarkable erythematous changes. The right foot has also some blisters/bullae. Some blisters on the leg. BACTERIOLOGY RESEARCH ASSISTANT: Patient is alert and oriented x4. LABORATORY DATA: Sodium is 139, potassium is 4.1, chloride is 95, bicarb is 28 , creatinine is 1.3, BUN is 5.2. I OS: The urine output is 2900, for a negative balance of 2540. The patient has an accumulate negative balance of 7808. Rib x-ray which was done earlier on today, no left rib fracture was identified. There is stable bilateral infiltrates and pleural effusions, consistent with anasarca. ASSESSMENT: 1. Fluid overload secondary to congestive heart failure. 2. Non-ST ejection myocardial infarction on presentation. Patient is pending. From cardiology standpoint, I do not think they want to do anymore ischemic workup. 3. Acute on chronic kidney disease. The patient is back to her baseline. 4. Vitamin D deficiency. 5. Hypertension. 6. Depression/anxiety disorder. 7. Bilateral lower extremity mild cellulitis with blisters on the right lower right foot. This could also just be venous drainage issues that is causing some of the swelling. Today I spoke with the wound care nurse. She is going to evaluate the patient. I will also recommend for the evaluation for any specific compression stockings that can help with some of the lower extremity swelling. The patient has been maximized on all the diuretic therapy. She does not have any chest pain and no more shortness of breath. I did explain to her that once we are able to put in the compression stockings we might be able to discharge her tomorrow. I think she is a very potential come back, bounce back if she goes home. We would therefore consult palliative care to evaluate the patient and evaluate options of Rehab/group home. cc: Clarence Iglesias MD [facility]
[2016-06-24] MEDS ORDERED: SUBOXONE 8 MG/2 MG SL SCH (19:47)
--- NOTE | 2016-06-24 20:54 | PALLIATIVE CARE CONSULTATION ---
DATE: 06/24/2016 REQUESTING PHYSICIAN: Dr. Clarence Iglesias. REASON FOR CONSULTATION: Goals of care. HISTORY OF PRESENT ILLNESS: This is a morbidly obese 55-year-old female with a past medical history of severe coronary heart disease, hypertension, hyperlipidemia, peripheral neuropathy, anxiety, depression, chronic kidney disease, and COPD. She was most recently admitted on 05/30/2016 after presenting to the ED with complaints of chest pain and tingling in her arms. She also complained of progressive shortness of breath with exertion and increased edema. Workup in the ED revealed abnormal EKGs as well as positive troponins. Currently, Ms. Silva is sitting in the bedside chair. She is complaining of shortness of breath and pain to her neck, left ribs and low back. She states that her shortness of breath is worse with exertion. She also complains of a poor appetite. The Palliative Care Team has been consulted to assist with goals of care. REVIEW OF SYSTEMS: A 12 point review of system has been conducted and otherwise negative except those mentioned in the HPI. PAST MEDICAL HISTORY: See HPI. PAST SURGICAL HISTORY: 1. Cardiac stenting. 2. Hysterectomy. 3. Cholecystectomy. 4. Back fusions x2. 5. Pacemaker defibrillator placement. 6. Skin graft to right upper arm. SOCIAL HISTORY: Prior to this admission, she lived alone. She is . She has 3 children. She smokes 2 packs of cigarettes per day. Alcohol and drug use have been denied. FAMILY HISTORY: Positive for diabetes mellitus and colon cancer. PHYSICAL EXAMINATION: General: This is a 55-year-old, obese, female who does not appear to be in any acute distress. HEENT: Atraumatic, normocephalic. Neck: Trachea is midline. Cardiovascular: Heart sounds are distant. Regular rate and rhythm. Pulmonary: Lung sounds are diminished. Respirations are slightly labored. Abdomen: Soft. Bowel sounds are active. Extremities: Compression boots noted to bilateral lower extremities. Pulses are palpable to upper extremities. Neurologic: Awake, alert, oriented to person, place and time. IMPRESSION: This is a 55-year-old, obese, female with a past medical history as listed above in the HPI. The Palliative Care Team was consulted to assist with goals of care. I discussed advanced directives and power of state's attorney Ms. Silva. She does not have either document, but states that she is interested in more information. She requests to be a full code at this time. I do feel like Ms. Silva is appropriate for outpatient palliative care services. It appears that Ms. Silva is continuing to have some pretty significant edema; however, she is maxed out on her diuretics. From what I understand further cardiac workup cannot be performed at this time due to her inability to lay flat. I do not feel that Ms. Silva will be able to go back home alone from this admission. My plan is to touch base with the daughter to discuss Ms. Silva' current state of health and to help with any discharge planning. It appears that Ms. Silva' palliative performance scale is 50%. As mentioned, she is a full code. The Palliative Care Team will continue to follow. Thank you for this consultation. Dictated by PEPE Solitario for Dustin Martin MD cc: PEPE Solitario MD [facility]
[2016-06-24] MEDS: SUBOXONE 2 MG/0.5 MG SL ONE ×2 (21:47→21:52)
[2016-06-24] MEDS: LEXAPRO PO SCH (23:04)
[2016-06-24] MEDS: MELATONIN PO SCH (23:04)
[2016-06-24] MEDS: LIPITOR PO SCH (23:04)
[2016-06-25] MEDS: TYLENOL PO PRN (00:05)
[2016-06-25] MEDS: KEFZOL 1 GM/D5W 1 GM/50 ML IVPB IV SCH ×3 (02:58→21:32)
[2016-06-25] MEDS: LOPRESSOR PO SCH ×3 (02:58→21:32)
[2016-06-25] MEDS: XANAX PO PRN ×2 (02:58→17:20)
[2016-06-25] MEDS: ZAROXOLYN PO SCH ×3 (02:59→21:31)
[2016-06-25] MEDS: LASIX IV SCH ×3 (02:59→21:32)
[2016-06-25] MEDS: DUONEB (A & A) INH SCH ×5 (04:51→22:04)
[2016-06-25] MEDS: PRILOSEC PO SCH (06:26)
[2016-06-25 06:43] LABS: CALCIUM 9.7 mg/dL (8.8-10.2); POTASSIUM 4.5 mmol/L (3.5-5.1)
[2016-06-25] MEDS: ADVAIR 250/50 DISKUS INH SCH (07:15)
--- NOTE | 2016-06-25 07:52 | EKG Report ---
Test Performed on : 06/25/2016 07:22:39 AM Test Reason : chest pain Blood Pressure : / mmHG Vent. Rate : 080 BPM Atrial Rate : 080 BPM P-R Int : 174 ms QRS Dur : 088 ms QT Int : 378 ms P-R-T Axes : 033 063 005 degrees QTc Int : 435 ms Normal sinus rhythm. Low voltage QRS Possible Anterolateral infarct (cited on or before 26-MAY-2013) Abnormal ECG When compared with ECG of 23-JUN-2016 06:45, premature ventricular complexes. are no longer present Serial changes of Anterior infarct present Confirmed by Brett Florian MD ([id number]) on 06/27/2016 12:02:51 PM
[2016-06-25] MEDS: SUBOXONE 8 MG/2 MG SL SCH (09:25)
[2016-06-25] MEDS: MIRALAX PO SCH (09:27)
[2016-06-25] MEDS: LANTUS SUBQ SCH (09:30)
[2016-06-25] MEDS: PHOSLO PO SCH ×3 (09:30→17:13)
[2016-06-25] MEDS: PLAVIX PO SCH (09:30)
[2016-06-25] MEDS: ASPIRIN PO SCH (09:31)
[2016-06-25] MEDS: BIDIL PO SCH ×3 (09:31→17:13)
[2016-06-25] MEDS: ALDACTONE PO SCH ×2 (09:31→21:31)
[2016-06-25] MEDS: NICODERM PATCH TD SCH (09:32)
[2016-06-25] MEDS: MUCOMYST 20% PO SCH (09:32)
[2016-06-25] MEDS: LANOXIN IV SCH (09:33)
[2016-06-25] MEDS: HUMULIN 70/30 SUBQ SCH ×2 (09:38→17:14)
--- NOTE | 2016-06-25 10:50 | PROGRESS NOTE ---
DATE: 06/25/2016 SUBJECTIVE: Today, Ms. Silva refers to be relatively stable. She complains of chest pain, anxiety, and not being able to recline back on her chair. Early on this morning, the nurses called me. She was complaining of chest pain on the left side. They did an EKG which did not show any changes, the troponins this morning, where the chest pain, were actually lower than she had on admission. OBJECTIVE: Vital Signs: Blood pressure 93/77, pulse of 73, respiration is 21, temperature 97.5 degrees. General Examination: Ms. Silva is a 55-year-old, female. She was sitting up in a chair. She was in mild respiratory distress. HEENT: Mucosa is pink and moist. Anicteric and acyanotic. Neck: Supple. Positive JVD. Chest: Air entry is bilaterally reduced. There are diffuse coarse crackles in all posterior lung olea. Cardiovascular: Regular rate and rhythm. No murmurs. No rubs. No gallops. Abdomen: Soft, distended. There is fluid infiltrate in the subcutaneous tissues on the lower and lateral abdominal felton. Extremities: There is 4+ pedal edema. Lower extremity is now seen compression wrapped Band-Aid. Laboratory Data: Sodium is 139, potassium 4.5, chloride 96, bicarb is 28, BUN is 47, creatinine is 1.2. Troponin 0.426. ASSESSMENT: 1. Fluid overload secondary to congestive heart failure. Patient continues to have remarkable volume overload. She had a 1200 urine output yesterday for a total of -8599. However, the patient's weight has not changed. I am not quite sure if they are using the same scale. We will continue with the current diuretic therapy. However, if the patient becomes hypotensive on the high doses on the diuretics, we will reconsult nephrology to evaluate the patient for ultrafiltration. 2. Non-ST elevation myocardial infarction on presentation. Troponins have been getting better. Patient continues to have intermittent chest pain. I am still waiting on final recommendations from cardiology. However, from what Dr. Gross discussed with me, it sounds like he is not going to do anything else since patient continues to have a lot of fluid in the lungs and not being able to lie flat for any form of investigations. 3. Acute on chronic kidney disease. This is improved. Creatinine is actually 1.2 today. The patient seems to be putting out a lot of urine. A 24 urine collection was also normal. However, she continues to be extremely fluid overloaded which we think something else needs to be done because she is not getting side effects from the medications. 4. Vitamin D deficiency. We are replacing that. 5. Hypertension, stable. 6. Depression and anxiety disorder, noted. 7. Bilateral lower extremity mild cellulitis on top of the swelling. The patient is getting antibiotics for that. PLAN: In general, Ms. Silva' condition remains stable. She does have episodes of panic attacks which we will address accordingly. The patient does have anasarca with fluid everywhere in the lungs, abdominal wall, and lower extremities. We think this is due to a cardiac origin. The patient will be needing either catheterization or at least a minimum of a stress test. However, she is not able to lie down for any of those investigations to be done. Patient is on 80 mg of IV Lasix, metolazone 2.5, and also spironolactone. She is now getting hypotensive and at 1 point, she fell down because blood pressure was extremely low. We will reconsult nephrology to look for other alternatives for fluid management. cc: Clarence Iglesias MD
[2016-06-25] MEDS ORDERED: DILAUDID IV ONE (11:56)
--- NOTE | 2016-06-25 14:58 | PALLIATIVE CARE PROGRESS NOTE ---
DATE: 06/25/2016 SUBJECTIVE: Ms. Silva is sitting up in the bedside chair. She appears sleepy. She does not have any acute complaints. OBJECTIVE: General: This is a morbidly obese, 55-year-old female, who appears sleepy, but not in any acute distress. Cardiovascular: Regular rate and rhythm. Pulmonary: Crackles auscultated bilaterally. Lung sounds are diminished. Abdomen: Soft. Extremities: Compression boots noted to bilateral lower extremities. Upper extremity pulses are palpable. ASSESSMENT AND PLAN: I attempted to reach out to Ms. Silva' daughter on 2 attempts to discuss her current state of health. However I was unable to get a hold of her. I do not feel that Ms. Silva can return back home and live alone safely. She has been approached with the plan of possible intermediate placement and she is agreeable to that. Nephrology has also been consulted to assist with fluid overload. At this time Ms. Silva has no acute complaints. She denies shortness of breath, pain and anxiety at this time. She remains a full code. The palliative care team will continue to follow. Dictated by PEPE Solitario for Dustin Martin MD cc: PEPE Solitario MD [facility]
[2016-06-25] MEDS: LEXAPRO PO SCH (21:30)
[2016-06-25] MEDS: MELATONIN PO SCH (21:31)
[2016-06-25] MEDS: LIPITOR PO SCH (21:31)
[2016-06-25] MEDS: ZOFRAN IV PRN (23:22)
[2016-06-26] MEDS: KEFZOL 1 GM/D5W 1 GM/50 ML IVPB IV SCH (03:09)
[2016-06-26] MEDS: DUONEB (A & A) INH SCH ×2 (04:19→09:44)
[2016-06-26] MEDS ORDERED: INSULIN PEN NEEDLES ONE (06:16)
[2016-06-26] MEDS: PRILOSEC PO SCH (06:18)
[2016-06-26] MEDS: TYLENOL PO PRN (06:21)
[2016-06-26 07:12] LABS: BASO% 0.5 % (0.0-0.8); EOS# 0.37 X1000 (0.0-0.7); EOS% 4.3 % (0.0-10.0); HEMATOCRIT 34.1 % (37.0-47.0); HEMOGLOBIN 9.8 g/dL (12.0-16.0); IMM GRAN# 0.02 X1000 (0.0-0.04); IMM GRAN% 0.2 % (0.0-0.5); LYMPH# 1.29 X1000 (1.2-3.4); LYMPH% 15.1 % (20.5-51.1); MANUAL DIFF NEEDED? YES; MCH 26.5 PG (27-31); MCHC 28.7 g/dL (33-37); MCV 92.2 FL (81-99); MONO% 10.5 % (1.7-9.3); MPV 11.8 FL (7.4-10.4); NEUT% 69.4 % (42.2-75.2); PLT 230 X1000 (130-400)
[2016-06-26 07:13] LABS: CALCIUM 9.5 mg/dL (8.8-10.2); POTASSIUM 4.1 mmol/L (3.5-5.1)
[2016-06-26 08:47] LABS: EOS 6 % (1-10); HYPOCHROM 1+; LYMPHS 14 % (21-51); MONO 4 % (1-9)
[2016-06-26] MEDS: PLAVIX PO SCH (09:07)
[2016-06-26] MEDS: ZAROXOLYN PO SCH ×2 (09:07→20:40)
[2016-06-26] MEDS: PHOSLO PO SCH ×3 (09:07→18:40)
[2016-06-26] MEDS: LOPRESSOR PO SCH ×2 (09:08→20:39)
[2016-06-26] MEDS: LANOXIN IV SCH (09:08)
[2016-06-26] MEDS: BIDIL PO SCH ×3 (09:08→18:40)
[2016-06-26] MEDS: LASIX IV SCH (09:08)
[2016-06-26] MEDS: ASPIRIN PO SCH (09:08)
[2016-06-26] MEDS: ALDACTONE PO SCH ×2 (09:08→20:39)
[2016-06-26] MEDS: HUMULIN 70/30 SUBQ SCH ×2 (09:09→18:41)
[2016-06-26] MEDS: SUBOXONE 8 MG/2 MG SL SCH (09:09)
--- NOTE | 2016-06-26 09:09 | PROGRESS NOTE ---
DATE: 06/26/2016 SUBJECTIVE: Ms. Silva is sitting up in a chair. She states that she is actually feeling well. She denies chest pain or increased work of breathing. States that her lower extremity swelling has done better since they have put her Unna boots on. VITAL SIGNS: Her most recent vital signs are temperature 97.9 degrees, blood pressure 97/68, heart rate 68, and respirations 16. She is currently on a 50% Venturi mask. Last recorded saturation 92% to 95%. She has had 150 in; she has had 3400 out. Patient is in a negative fluid balance for the last 5 days for greater than 10 L negative. MOST RECENT LABS: Sodium 140, potassium 4.1, chloride 97, CO2 31, BUN 47, creatinine 1.3, glucose 166. Anion gap 12, calcium 9.5. White count 8.56, hemoglobin 9.8, hematocrit 34.1, with a platelet count of 230,000. Patient has a 24 hour urine that was last completed on 06/18/2016 indicate a creatinine clearance of 61% with marginal proteinuria. OBJECTIVE: General: This is a 55-year-old white female. She is sitting up in a chair. She is in no acute distress. Skin: Warm and dry. HEENT: Normocephalic, atraumatic. Conjunctivae pale. She has JASON. Mucous membranes moist. Neck: Supple. Trachea midline. No JVD. Cardiovascular: She is regular rate and rhythm. She is without gallop. She does have a soft murmur. Lungs: Clear to auscultation anterior, diminished posterior secondary to body habitus. She remains on O2. Equal excursion. Abdomen: Large obese, nontender. Positive bowel sounds present. Genitourinary: Not inspected. Patient continues with Holliday catheter. Urine out measured. Extremities: Patient is now currently wearing Unna boot. She does have trace edema above the knee. No edema noted to the lower extremities secondary to her Unna boots being in place. All toes are warm. Neurological: She is alert and oriented x2. Able to assist with exam. ASSESSMENT AND PLAN: 1. Chronic kidney disease stage III. Patient remains at her current baseline of 1.3. She is in a fluid negative balance. We do not have a daily weight since the twentieth. We will ask the nurses to stand her and to weigh her on the same scale daily. She does not appear to be in any fluid volume overload compromising her breathing status at this time. We will continue to monitor her. 2. Electrolytes and acid-base balance. These remain stable. 3. Anemia. This is stable. 4. Fluid volume overload. Patient is in a negative fluid balance of approximately 10 L over the last 5 days. She continues on Lasix 80 mg q. 12 hours. She remains oxygen dependent. She remains on Lasix and Zaroxolyn and Aldactone and remains oxygen dependent. I would like to thank you for allowing us to follow with this patient. Seen, data reviewed, discussed with Gerber Meneses on 06/26/16. I agree with the above assessment and plan of care. rg Dictated by PEPE Doshi for Raymond eJnnings MD cc: PEPE Doshi MD [facility]
[2016-06-26] MEDS: NICODERM PATCH TD SCH (09:10)
[2016-06-26] MEDS: MIRALAX PO SCH (09:10)
[2016-06-26] MEDS: LANTUS SUBQ SCH (09:10)
[2016-06-26] MEDS: MUCOMYST 20% PO SCH ×2 (09:11→09:45)
[2016-06-26] MEDS: ADVAIR 250/50 DISKUS INH SCH (09:46)
--- NOTE | 2016-06-26 15:01 | DISCHARGE SUMMARY ---
ADMISSION DATE: 05/30/2016 DISCHARGE DATE: 06/26/2016 CONSULTATIONS: 1. Dr. Jennings with nephrology. 2. Elva Vela with palliative care. PERTINENT PROCEDURES: 1. Echocardiogram showed an EF of 45% with segmental wall motion abnormality, especially at the level of the inferior wall. Mild degree of pulmonary hypertension. 2. Carotid Dopplers showed intimal disease in the bilateral common carotid arteries. There is calcified plaque in the left proximal internal carotid artery with a corresponding severe stenosis. This has significantly worsened from prior study on 06/02/2014. In addition, the prior concern for left subclavian occlusion was not supported with this study. 3. Renal ultrasound showed bilateral pleural effusion. Normal exam of the kidneys. 4. Chest x-ray showed no left rib fracture. Stable bilateral infiltrates and pleural effusion. DISCHARGE DIAGNOSES: 1. Fluid volume overload secondary to congestive heart failure. The patient still remained to have some volume on board, however it is not compromising her breathing status. Recommend strict intake/output with continued daily weights. Her electrolytes and acid bases remained stable. The patient does have a negative fluid balance of approximately 10 liters, and will continue on oral Lasix, as well as Zaroxolyn and Aldactone and continued oxygen dependent. 2. Chronic kidney disease stage III at her baseline. Stable. 3. Non ST segment elevated myocardial infarction on presentation. They agreed with continued Lasix and Zaroxolyn, as well as adding spironolactone. They did not anticipate performing any noninvasive or invasive evaluation of her coronary artery disease until she is completely able to lie flat on her back. 4. Vitamin D deficiency. Continue supplementation. 5. Hypertension, stable. 6. Depression and anxiety. Aware. 7. Bilateral lower extremity mild cellulitis on top of swelling. The patient did receive antibiotics for this. HOSPITAL COURSE: Briefly, Ms. Silva is a 55-year-old female, who is morbidly obese. Also, past medical history of severe coronary artery disease, hypertension, hyperlipidemia, peripheral neuropathy, anxiety, depression, chronic kidney disease and COPD, admitted on 05/30/2016 after presenting to the ED with complaints of chest pain and tingling in her arms, as well as progressive shortness of breath with exertion and increased edema. Workup in the ED revealed abnormal EKG, as well as positive troponins. She continued to be diuresed throughout her hospital stay with Lasix. Added Zaroxolyn, as well as Aldactone. Patient is in a negative fluid balance, however she still remains with anasarca with fluid everywhere in the lungs, abdominal wall and lower extremities secondary to cardiac origin. The patient will not be getting either catheterization or stress test because she is not able to lie down for any of those interventions. However, this fluid volume overload is not compromising her breathing status at this time. She was evaluated by nephrology as well, and again she is negative fluid balance of approximately 10 L, but she does remain oxygen dependent. Ms. Silva reports on the day of her discharge to actually feeling well. No chest pain or increased work of breathing, and that her lower extremity swelling has improved since being on Unna boots. The patient will be admitted to rehab with strict I's and O's and daily weights. VITAL SIGNS: Temperature is 97.9 degrees, heart rate 76, respirations 20, blood pressure 97/60, O2 ranges anywhere from 92% to 95%. DISCHARGE DIET: Healthy heart. DISCHARGE MEDICATIONS: 1. Lipitor 40 mg p.o. at bedtime. 2. Suboxone 8 mg sublingual b.i.d. 3. PhosLo 667 mg p.o. t.i.d. 4. Plavix 75 mg p.o. daily. 5. Lexapro 20 mg p.o. at bedtime. 6. Advair 250/50 Diskus 1 each inhaled daily p.r.n. 7. Lasix 80 mg p.o. b.i.d. 8. BiDil 1 each p.o. t.i.d. 9. Lactulose 30 mL p.o. b.i.d. p.r.n. 10. Melatonin 3 mg p.o. at bedtime. 11. Zaroxolyn 2.5 mg p.o. b.i.d. 12. Zaroxolyn 2.5 mg p.o. 0830 hours and 2030 hours. 13. Lopressor 12.5 mg p.o. b.i.d. 14. Multivitamin 1 each p.o. daily. 15. NicoDerm patch 7 g TD daily. 16. Prilosec 20 mg p.o. daily. 17. Potassium chloride 20 mEq p.o. b.i.d. 18. Xarelto 250 mg p.o. daily. 19. Aldactone 25 mg p.o. b.i.d. FOLLOWUP: Patient is being discharged to rehab at [facility], where she will continue on strict I's and O's and daily weights. The patient can return to the ED for any worsening of symptoms. TIME SPENT: Discharge time greater than 30 minutes. Dictated by PEPE Kelly for Clarence Iglesias MD cc: MD Jeff Monroe MD
--- NOTE | 2016-06-26 15:13 | PALLIATIVE CARE PROGRESS NOTE ---
DATE: 06/26/2016 SUBJECTIVE: Ms. Claudio is sitting up in the bedside chair. She does not have any acute complaints. OBJECTIVE: General: This is a 55-year-old, female, who does not appear to be in any acute distress. HEENT: Atraumatic, normocephalic. Neck: Supple. Cardiovascular: Regular rate and rhythm. Pulmonary: Crackles auscultated bilaterally. Respirations are nonlabored. Abdomen: Soft. Extremities: Unna boots to bilateral lower extremities. Upper extremity pulses are palpable. Neurologic: Awake, alert, oriented to person, place and time. ASSESSMENT: Ms. Silva states that she is feeling much better today. She denies pain, shortness of breath and states her anxiety is much improved. PLAN: The plan at this time, I believe is to discharge to rehab. I was able to reach out to Ms. Silva' daughter and explain her current state of health and discharge plan. Ms. Silva remains a full code. The palliative care team will continue to follow. Dictated by PEPE Solitario for Dustin Martin MD cc: PEPE Solitario MD
[2016-06-26] MEDS: XANAX PO PRN (16:02)
[2016-06-26] MEDS: LIPITOR PO SCH (20:39)
[2016-06-26] MEDS: LEXAPRO PO SCH (20:39)
[2016-06-26] MEDS: LASIX PO SCH (20:40)
[2016-06-26] MEDS: MELATONIN PO SCH (20:40)
[2016-06-27] MEDS: TYLENOL PO PRN ×3 (00:52→21:56)
[2016-06-27] MEDS: XANAX PO PRN ×2 (00:52→16:22)
[2016-06-27] MEDS: PRILOSEC PO SCH (06:01)
--- NOTE | 2016-06-27 06:55 | PROGRESS NOTE ---
DATE: 06/27/2016 SUBJECTIVE: Ms. Silva is sitting up in the chair sleeping still wearing a closed face mask. She denies complaints. No shortness of breath. No nausea or vomiting. OBJECTIVE: Vital Signs: Blood pressure 103/58, heart rate, 18 respirations 76, afebrile. Intake 50 mL is recorded for intake, output 1.2. General: No acute distress. Skin: Warm and dry. Conjunctivae are pink. Neck: Neck veins are not visible in her current posture. Heart: Distant, but regular. Lungs: Distant, shallow and equal. Abdomen: Soft. Bowel sounds are not appreciated. Nontender. Extremities: 1+ edema. No clubbing or cyanosis. LABORATORY DATA: Pending from today. IMPRESSION: Respiratory failure requiring 15 L of oxygen. Her last chest x-ray was performed on 06/20 and was read as (waxing and waning alveolar opacities worse with right pleural effusion). Her volume status exam looks like she has moderate volume overload but certainly to me her respiratory symptoms are out of proportion to her volume status. Certainly, her kidney function is acceptable but she does have prerenal azotemia presumably from her diuretics and persistently negative fluid balance over the last several days. From my perspective, she is not a candidate for renal replacement therapy to help with management of her volume status. I would consider other possibilities regarding her respiratory failure. cc: Raymond Jennings MD
[2016-06-27] MEDS: LOPRESSOR PO SCH ×2 (08:26→20:22)
[2016-06-27] MEDS: ASPIRIN PO SCH (08:26)
[2016-06-27] MEDS: NICODERM PATCH TD SCH (08:26)
[2016-06-27] MEDS: BIDIL PO SCH ×4 (08:26→16:45)
[2016-06-27] MEDS: ALDACTONE PO SCH ×2 (08:26→20:22)
[2016-06-27] MEDS: PHOSLO PO SCH ×3 (08:27→16:41)
[2016-06-27] MEDS: PLAVIX PO SCH (08:27)
[2016-06-27] MEDS: MIRALAX PO SCH (08:27)
[2016-06-27] MEDS: LASIX PO SCH ×2 (08:27→20:23)
[2016-06-27] MEDS: ZAROXOLYN PO SCH ×2 (08:31→20:22)
[2016-06-27] MEDS: HUMULIN 70/30 SUBQ SCH ×2 (08:33→16:45)
[2016-06-27] MEDS: LANOXIN IV SCH (08:35)
[2016-06-27] MEDS: LANTUS SUBQ SCH (08:40)
[2016-06-27] MEDS: SUBOXONE 8 MG/2 MG SL SCH ×2 (08:40→20:22)
--- NOTE | 2016-06-27 10:05 | Diag Imaging Result Document ---
PROCEDURE NAME: CHEST-2 VIEWS - 06/27/2016 FRONTAL AND LATERAL CHEST, TWO VIEWS: COMPARISON: 06/24/2016. FINDINGS: There are diffuse bilateral infiltrates. These are more pronounced than on 06/20/2016. There are small bilateral pleural effusions. The heart is borderline mildly prominent. The patient has a left sided pacemaker. There is basilar atelectasis. IMPRESSION: Mild worsening in the bilateral infiltrates with stable small effusions and basilar atelectasis.
--- NOTE | 2016-06-27 16:41 | PROGRESS NOTE ---
DATE: 06/27/2016 SUBJECTIVE: Today, Ms. Silva referred to be doing a whole lot better, however , continues to be requiring a high volume of oxygen to adequately saturate. OBJECTIVE: Vital Signs: Blood pressure is 87/56, pulse 60 respirations 20, temperature 98.4 degrees. General: Ms. Silva is a 55-year-old, female. She was sitting up in a chair. She was not in any remarkable distress. HEENT: Mucosa is pink and moist. Anicteric. Acyanotic. Neck: Supple. Chest: Air entry is bilaterally reduced. There is diffuse bilateral crepitations. Cardiovascular: Regular rate and rhythm. Abdomen: Distended. Nontender. There is fluid in the abdominal wall. Extremities: 3+ pedal edema is wrapped. Central Nervous System: Patient is alert and oriented. LABORATORY DATA: None for today. Glucose is 163. A chest x-ray which was done earlier today continues to show mild worsening of the bilateral infiltrate with stable small effusions with basilar atelectasis. I did go in and take the patient off the face mask oxygenation and she just slumped into the 70s and we had to put her back on 15 L. ASSESSMENT: 1. Respiratory distress secondary to bilateral pleural effusions and pulmonary edema with atelectasis. We will continue with Lasix and diuretic therapy. Patient has been evaluated by Nephrology and they deemed that she is not a candidate for renal replacement. 2. [id number] myocardial infarction on presentation. Patient is being seen by Cardiology. 3. Vitamin D deficiency. We will continue replacing. 4. Hypertension. 5. Depression/anxiety disorder. PLAN: In general, Ms. Silva is a very complicated case. She continues to have significant fluid overload with fluid in the lungs, in the abdominal wall and the lower extremities. Nephrology has re-evaluated the patient. They think she is not a candidate for renal replacement. We will continue with diuretic therapy, however, it has not improved. Patient is negative balance of 13,024. Patient has not even been able to lie flat in bed because she continues to have significant shortness of breath. We sent her for CT scan of the lungs she was not able to do that because of shortness of breath. We will continue diuresing until her lungs get better and be able to be discharged. We tried discharging her yesterday but because she needs over 15 L of oxygen to saturate adequately she was not able to go to rehabilitation. We have advised her to use an incentive spirometer very efficiently and put PT to kind of walk with her to get her where we can send her safely to Rehab cc: Clarence Iglesias MD [facility]
[2016-06-27] MEDS: DUONEB (A & A) INH SCH ×3 (16:57→20:29)
[2016-06-27] MEDS: ADVAIR 250/50 DISKUS INH SCH (16:57)
[2016-06-27] MEDS ORDERED: DILAUDID IV ONE (17:42)
[2016-06-27] MEDS: LEXAPRO PO SCH (20:22)
[2016-06-27] MEDS: LIPITOR PO SCH (20:22)
[2016-06-27] MEDS: MELATONIN PO SCH (20:23)
[2016-06-27] MEDS: ZOFRAN IV PRN (21:57)
[2016-06-28] MEDS: XANAX PO PRN ×2 (03:44→17:10)
[2016-06-28] MEDS: DUONEB (A & A) INH SCH ×4 (04:15→19:41)
[2016-06-28] MEDS: PRILOSEC PO SCH (06:13)
[2016-06-28 06:29] LABS: MANUAL DIFF NEEDED? NO
[2016-06-28 06:44] LABS: BASO% 0.6 % (0.0-0.8); EOS# 0.21 X1000 (0.0-0.7); EOS% 2.5 % (0.0-10.0); HEMATOCRIT 35.5 % (37.0-47.0); HEMOGLOBIN 10.5 g/dL (12.0-16.0); LYMPH# 1.21 X1000 (1.2-3.4); LYMPH% 14.5 % (20.5-51.1); MCH 26.9 PG (27-31); MCHC 29.6 g/dL (33-37); MONO# 0.94 X1000 (0.11-0.59); MONO% 11.3 % (1.7-9.3); MPV 11.8 FL (7.4-10.4); NEUT% 71.1 % (42.2-75.2); PLT 200 X1000 (130-400)
[2016-06-28] MEDS ORDERED: INSULIN PEN NEEDLES ONE (06:45)
[2016-06-28 07:03] LABS: ALBUMIN 3.1 g/dL (3.5-5.0); CALCIUM 9.3 mg/dL (8.8-10.2); POTASSIUM 3.8 mmol/L (3.5-5.1); TOTAL BILIRUBIN 0.31 mg/dL (0.20-1.00); TOTAL PROTEIN 6.3 g/dL (6.3-8.3)
[2016-06-28] MEDS: ADVAIR 250/50 DISKUS INH SCH (07:30)
[2016-06-28] MEDS: BIDIL PO SCH ×3 (08:07→17:06)
[2016-06-28] MEDS: ASPIRIN PO SCH (08:07)
[2016-06-28] MEDS: PLAVIX PO SCH (08:07)
[2016-06-28] MEDS: MIRALAX PO SCH (08:07)
[2016-06-28] MEDS: ALDACTONE PO SCH ×2 (08:08→20:41)
[2016-06-28] MEDS: NICODERM PATCH TD SCH (08:08)
[2016-06-28] MEDS: LOPRESSOR PO SCH ×2 (08:08→20:41)
[2016-06-28] MEDS: PHOSLO PO SCH ×3 (08:08→17:06)
[2016-06-28] MEDS: LANTUS SUBQ SCH (08:08)
[2016-06-28] MEDS: HUMULIN 70/30 SUBQ SCH ×2 (08:10→17:06)
[2016-06-28] MEDS: LANOXIN IV SCH (08:11)
--- NOTE | 2016-06-28 08:13 | PROGRESS NOTE ---
DATE: 06/28/2016 SUBJECTIVE: She is still sitting in the same posture wearing her closed face mask. She is easily arousable and has no complaints. She feels her shortness of breath is improved. OBJECTIVE: Vital Signs: Blood pressure 98/49, heart rate 65, respirations 19, afebrile. General: She is an obese, white female, sitting erect, in no distress. Skin: Warm and dry. Conjunctivae are pink. Neck: Neck veins are not visible in the erect position. Heart: Regular without gallops. Lungs: Have equal breath sounds with coarse breath sounds and a few crackles. Abdomen: Obese and soft. Bowel sounds present. Extremities: Have 2 to 3+ edema. No clubbing or cyanosis. LABORATORY DATA: Sodium 137, potassium 3.8, chloride 94, bicarbonate 31, BUN 64, creatinine 1.6. IMPRESSION: Volume overload. Not sure what to make of her chest x-ray. She does still have swelling but her blood pressure is low and she has prerenal findings with increased BUN to creatinine ratio. I will hold her diuretics for today. I would recommend possibly reinstituting these after a couple of days of diuretic vacation. Her kidney function is acceptable and I do not think dialysis would be the appropriate treatment for her problem at this point. I have nothing else to add, so I am going to sign off at this time. If I can be of further assistance, please feel free to call me again. cc: Raymond Jennings MD
[2016-06-28] MEDS: SUBOXONE 8 MG/2 MG SL SCH ×2 (08:15→20:42)
[2016-06-28] MEDS: MUCOMYST 20% PO SCH ×2 (11:13→20:45)
--- NOTE | 2016-06-28 17:28 | PROGRESS NOTE ---
DATE: 06/28/2016 Today Ms. Silva was sitting down. Referred to be doing a whole lot better. Continues to be demanding a lot of oxygen for adequate saturation. OBJECTIVE: Vital signs: Blood pressure is 89/54, pulse of 60, respirations 20 , temperature is 98.4 degrees. General: Ms. Silva is a 55-year-old female. She was sitting up in a chair. HEENT: Mucosa is pink and moist. Anicteric. Acyanotic. Neck: Supple. Chest: Air entry is bilaterally reduced. There are diffuse bilateral coarse crackles. Cardiovascular: Regular rate and rhythm. There is a pacemaker generator in the left upper chest wall. Extremities: 3+ pedal edema. Patient also has compression stockings on. PROSPECTING OBSERVER : Patient is alert and oriented x4. No focal neurological deficit. LABORATORY DATA: CBC is reviewed. No acute problem. Chemistries reviewed. Creatinine bumped up to 1.6. The patient has adequate urine output of total of 2600. Has an accumulative negative balance of 15,024. ASSESSMENT: 1. Respiratory distress secondary to bilateral pleural effusions with pulmonary edema and atelectasis. 2. Non STEMI on presentation. 3. Congestive heart failure both systolic and diastolic. 4. Vitamin D deficiency. 5. Hypertension. 6. Depression/anxiety disorder. 7. Anasarca secondary to congestive heart failure. 8. Acute on chronic renal failure likely due to over diuresis. Today Ms. Silva continues to be pretty much the same. Nephrology is signing off on her since they think she is not a candidate for any ultrafiltration. I have not seen any notes from Cardiology yesterday and today. Lasix has been discontinued from Nephrology standpoint. I think at this point if nothing is going to be done in the hospital then we would discuss the possibility of hospice with the patient however, Ms. Silva did mention that she really wants everything to be done and get the left heart cath which was promised early on during her hospital stay. I will do a CT scan of the lungs to get a better idea of what is going on in the lungs. I think it is still going to be fluid. cc: MD JOSE Monroe
[2016-06-28] MEDS ORDERED: DILAUDID IV ONE (18:12)
[2016-06-28] MEDS: LIPITOR PO SCH (20:41)
[2016-06-28] MEDS: MELATONIN PO SCH (20:41)
[2016-06-28] MEDS: LEXAPRO PO SCH (20:41)
[2016-06-29] MEDS: XANAX PO PRN ×2 (00:49→23:56)
[2016-06-29] MEDS: TYLENOL PO PRN (02:42)
[2016-06-29 04:35] LABS: CALCIUM 9.3 mg/dL (8.8-10.2); POTASSIUM 4.2 mmol/L (3.5-5.1)
[2016-06-29] MEDS: DUONEB (A & A) INH SCH ×4 (04:36→21:10)
[2016-06-29] MEDS ORDERED: LASIX IV ONE (05:58)
[2016-06-29] MEDS: PRILOSEC PO SCH (06:23)
[2016-06-29] MEDS: HUMULIN 70/30 SUBQ SCH ×2 (07:52→18:15)
[2016-06-29] MEDS: LANTUS SUBQ SCH (08:45)
[2016-06-29] MEDS: PHOSLO PO SCH ×3 (08:45→18:16)
[2016-06-29] MEDS: MIRALAX PO SCH (08:45)
[2016-06-29] MEDS: PLAVIX PO SCH (08:45)
[2016-06-29] MEDS: LOPRESSOR PO SCH ×2 (08:45→21:16)
[2016-06-29] MEDS: SUBOXONE 8 MG/2 MG SL SCH ×2 (08:45→21:15)
[2016-06-29] MEDS: ALDACTONE PO SCH ×2 (08:45→21:16)
[2016-06-29] MEDS: LANOXIN IV SCH (08:45)
[2016-06-29] MEDS: NICODERM PATCH TD SCH (08:45)
[2016-06-29] MEDS: ASPIRIN PO SCH (08:45)
[2016-06-29] MEDS: BIDIL PO SCH ×3 (08:45→18:15)
[2016-06-29] MEDS: MUCOMYST 20% PO SCH ×2 (09:31→21:17)
[2016-06-29] MEDS: ADVAIR 250/50 DISKUS INH SCH (09:32)
[2016-06-29] MEDS ORDERED: DILAUDID IV ONE (12:00)
--- NOTE | 2016-06-29 12:42 | PROGRESS NOTE ---
DATE: 06/29/2016 Today Ms. Silva continues to be hurting especially the left side of her chest radiating all the way to the back. OBJECTIVE: Vital signs: Blood pressure is 101/59, pulse of 58, respirations 24 , temperature is 97.7 degrees. General: Ms. Silva is a 55-year-old female. She was sitting up in the chair. Not seemingly distressed. HEENT: Mucosa is pink and moist. Anicteric. Acyanotic. Neck: Supple. Chest: Air entry is bilaterally reduced. There are diffuse bilateral crepitations in the lung olea. Cardiovascular: Regular rate and rhythm. There is a generator pocket on the left anterior chest wall. Abdomen: Soft, it is distended. There is fluid infiltration everywhere. Extremities: In compression stockings. Musculoskeletal: There is tenderness over the left breast all the way to the lateral aspect of the chest wall to the back. LABORATORY DATA: Chemistry is reviewed. Creatinine is slightly down to 1.5. The patient's troponin 0.323 which is a whole lot better than admission. ProBNP is 19,266. That is a better than 32,000. ASSESSMENT: 1. Respiratory distress secondary to bilateral pleural effusions with pulmonary edema and atelectasis. Not quite sure if patient has developed anything else on top of these pathologies. She continued to show remarkable chest discomfort. I would really love to have a CT scan to see what is going on. However patient has not been very cooperative with the process. 2. Left-sided chest pain. This seems more musculoskeletal. The patient did fall couple days before. Subsequent x-rays have not revealed any fracture but I still believe she probably might have some rib fracture. Maybe the CT scan will help to elucidate that more. I have already spoken to the patient to see if at all she will be able to do that today. We will give her 2 mg of Dilaudid at the time of the scan to take the edge off of the pain. 3. Acute on acute on chronic congestive heart failure both systolic and diastolic. Patient is being followed by Cardiology. 4. Vitamin D deficiency. We will continue replacing. 5. Acute on chronic renal failure. Neurology has signed off. 6. Anasarca. The patient continues to be fluid overloaded. Nephrology has recommended no ultrafiltration. Will continue the diuretics. The Lasix was however discontinued yesterday because of the worsening of the renal functions. 7. Depression/anxiety disorder noted. So in general I think the main issues of Ms. Silva is fluid overload/anasarca for which we think it is cardiac origin. We have not been able to make any headway because patient cannot lie flat to have any procedures done. For the past 3-4 days she has been complaining of left-sided chest pain which is pleuritic in nature. She had fallen and I am suspecting there might be a rib fracture or maybe there is a genuine underlying pleuritic/lung pathology. I have stressed the importance for us to have the CT scan however patient is apprehensive and fearful to go and lie flat. We would continue having the conversation with her to see where we go. For now she does not want to be intubated even if she is having respiratory distress. She says she has been under the vent twice and she does not want to go under that anymore. However she did not make any decision if she would want shock or CPR if her heart should stop. I will change her DNR status to reflect that she does not want any endotracheal intubation. cc: Clarence Iglesias MD MTDD
[2016-06-29] MEDS: LEXAPRO PO SCH (21:16)
[2016-06-29] MEDS: LIPITOR PO SCH (21:17)
[2016-06-29] MEDS: MELATONIN PO SCH (21:17)
[2016-06-30] MEDS: DUONEB (A & A) INH SCH ×3 (04:44→23:35)
[2016-06-30] MEDS: PRILOSEC PO SCH (06:22)
[2016-06-30] MEDS ORDERED: INSULIN PEN NEEDLES ONE (06:45)
[2016-06-30] MEDS: HUMULIN 70/30 SUBQ SCH ×2 (08:25→15:34)
[2016-06-30] MEDS: LANTUS SUBQ SCH (08:25)
[2016-06-30] MEDS: MUCOMYST 20% PO SCH ×2 (08:26→20:14)
[2016-06-30] MEDS: ASPIRIN PO SCH (08:26)
[2016-06-30] MEDS: NICODERM PATCH TD SCH (08:27)
[2016-06-30] MEDS: LOPRESSOR PO SCH ×2 (08:27→20:13)
[2016-06-30] MEDS: ALDACTONE PO SCH ×2 (08:27→20:13)
[2016-06-30] MEDS: MIRALAX PO SCH (08:27)
[2016-06-30] MEDS: PLAVIX PO SCH (08:27)
[2016-06-30] MEDS: PHOSLO PO SCH ×3 (08:27→20:13)
[2016-06-30] MEDS: LANOXIN IV SCH (08:28)
[2016-06-30] MEDS: XANAX PO PRN ×2 (08:35→18:50)
[2016-06-30] MEDS: SUBOXONE 8 MG/2 MG SL SCH ×2 (08:35→20:14)
[2016-06-30] MEDS: ADVAIR 250/50 DISKUS INH SCH (10:00)
[2016-06-30] MEDS ORDERED: DUONEB (A & A) INH PRN ×2 (15:00→16:04)
[2016-06-30] MEDS ORDERED: DUONEB (A & A) INH SCH (16:00)
--- NOTE | 2016-06-30 16:37 | PROGRESS NOTE ---
DATE: 06/30/2016 SUBJECTIVE: Today, Ms. Silva continues to have significant shortness of breath and anxieties. OBJECTIVE: Vital signs: Blood pressure is 149/93, pulse of 73, respirations 24, temperature 97.2 degrees. General: Ms. Silva is a 55-year-old female. She is sitting up in the chair in no distress. HEENT: Mucosa is pink and moist. Anicteric. Acyanotic. Neck: Supple. Chest: Air entry is bilaterally reduced. There are diffuse bilateral crepitations in posterior lung field. There is also a generator pocket on the left anterior chest wall. Cardiovascular: Regular rate and rhythm. Abdomen: Soft, distended. There is fluid infiltration in the entire abdominal wall. Extremities: 3+ pedal edema. Extremities: Actually in compression stockings, but easily pitting. LABORATORY DATA: None for today. ASSESSMENT: 1. Respiratory distress secondary to bilateral pleural effusions with pulmonary edema and atelectasis. 2. Left-sided chest pain. I think this is more musculoskeletal. We have tried multiple times to do a CT scan of the chest. Patient is not able to lie flat for the test. 3. Acute on chronic congestive heart failure, both systolic and diastolic. Cardiology is on board. 4. Vitamin D deficiency. We will continue replacing. 5. Acute on chronic renal failure (stage III A to B). 6. Anasarca. Patient continues to have adequate diureses; however, she still looks remarkably fluid overloaded. 7. Depression and anxiety disorder. 8. Chronic pain syndrome. Patient continues to be wanting more pain medications. PLAN: In general, I think Ms. Silva, has reached where she will probably not be able to tolerate any procedure done. She is still needing a significant amount of oxygen to saturate very well. I think this is due to the fact that she has atelectasis and pleural effusions compromising her oxygenation. Tomorrow we will repeat a chest x-ray. We will also try and see if we can wean her off the oxygen demand, encourage her to walk around and continue with the inspiratory spirometer. We anticipate to discharge her as soon as her oxygen needs have improved. We are not able to do any studies to rule out pulmonary embolus because patient is not able to lie flat for anything. cc: Clarence Iglesias MD
[2016-06-30] MEDS: LIPITOR PO SCH (20:13)
[2016-06-30] MEDS: LEXAPRO PO SCH (20:14)
[2016-06-30] MEDS: MELATONIN PO SCH (20:14)
[2016-07-01] MEDS: XANAX PO PRN ×3 (00:53→22:41)
[2016-07-01] MEDS: DUONEB (A & A) INH SCH ×6 (03:09→23:05)
--- NOTE | 2016-07-01 06:01 | EKG Report ---
Test Performed on : 06/29/2016 03:26:44 AM Test Reason : Chest Pain Blood Pressure : / mmHG Vent. Rate : 064 BPM Atrial Rate : 064 BPM P-R Int : 196 ms QRS Dur : 094 ms QT Int : 352 ms P-R-T Axes : 028 011 254 degrees QTc Int : 363 ms Normal sinus rhythm. Low voltage QRS Possible Anterolateral infarct (cited on or before 26-MAY-2013) Abnormal ECG When compared with ECG of 25-JUN-2016 07:22, Serial changes of Anterior infarct present Confirmed by Chiqui EDMONDSON, Brett Dias ([id number]) on 07/01/2016 11:21:13 AM
[2016-07-01] MEDS: PRILOSEC PO SCH (06:10)
[2016-07-01 07:02] LABS: MANUAL DIFF NEEDED? NO
[2016-07-01 07:09] LABS: BASO% 0.7 % (0.0-0.8); EOS# 0.34 X1000 (0.0-0.7); EOS% 4.2 % (0.0-10.0); HEMATOCRIT 34.9 % (37.0-47.0); HEMOGLOBIN 10.3 g/dL (12.0-16.0); LYMPH# 1.64 X1000 (1.2-3.4); LYMPH% 20.2 % (20.5-51.1); MCHC 29.5 g/dL (33-37); MCV 91.4 FL (81-99); MONO# 0.84 X1000 (0.11-0.59); MONO% 10.3 % (1.7-9.3); MPV 11.8 FL (7.4-10.4); NEUT% 64.6 % (42.2-75.2); PLT 229 X1000 (130-400); RBC 3.82 XMIL (4.2-5.4)
[2016-07-01 07:38] LABS: CALCIUM 9.7 mg/dL (8.8-10.2); MAGNESIUM 1.9 mg/dL (1.5-2.7); POTASSIUM 4.2 mmol/L (3.5-5.1)
[2016-07-01] MEDS: PHOSLO PO SCH ×3 (07:54→17:53)
[2016-07-01] MEDS: LOPRESSOR PO SCH ×2 (08:00→21:09)
[2016-07-01] MEDS: MIRALAX PO SCH (08:00)
[2016-07-01] MEDS: LANOXIN IV SCH (08:00)
[2016-07-01] MEDS: PLAVIX PO SCH (08:00)
[2016-07-01] MEDS: ALDACTONE PO SCH ×2 (08:01→21:07)
[2016-07-01] MEDS: LANTUS SUBQ SCH (08:02)
[2016-07-01] MEDS: SUBOXONE 8 MG/2 MG SL SCH ×2 (08:03→21:07)
[2016-07-01] MEDS: HUMULIN 70/30 SUBQ SCH (08:07)
[2016-07-01] MEDS: ADVAIR 250/50 DISKUS INH SCH (08:19)
[2016-07-01] MEDS: NICODERM PATCH TD SCH (09:05)
--- NOTE | 2016-07-01 09:15 | Diag Imaging Result Document ---
PROCEDURE NAME: CHEST-PORTABLE - 07/01/2016 PORTABLE CHEST X-RAY, 07/01/2016: COMPARISON: 06/27/2016. FINDINGS: Stable pacemaker and significant cardiomegaly. Stable moderately large pleural effusions bilaterally. There is slight worsening in the left upper lobe infiltrate which is mostly alveolar. Stable alveolar infiltrates throughout the right upper lobe as well. Stable background interstitial infiltrates suggesting pulmonary edema. IMPRESSION: Mild worsening in the bilateral predominantly alveolar infiltrates.
[2016-07-01] MEDS ORDERED: INSULIN PEN NEEDLES ONE (10:33)
--- NOTE | 2016-07-01 19:17 | PALLIATIVE CARE PROGRESS NOTE ---
DATE: 07/01/2016 SUBJECTIVE: Ms. Silva is sitting up in the bedside chair. She continues to complain of shortness of breath, chest pain and anxiety. OBJECTIVE: General: This is a 55-year-old, obese, female who does not appear to be in any acute distress. HEENT: Atraumatic, normocephalic. Neck: Supple. Cardiovascular: Regular rate and rhythm. Pulmonary: Lung sounds are diminished. Crackles auscultated bilaterally. Abdomen: Soft, distended. Extremities: Compression boots noted to bilateral lower extremities. Pulses are palpable to upper extremities. ASSESSMENT AND PLAN: I spoke with Ms. Silva regarding her overall state of health and goals of care. It appears that she continues to complain of significant shortness of breath and is requiring high flow O2. She is unable to undergo any testing or procedure due to her significant shortness of breath. I spoke with Ms. Silva regarding hospice services. She is agreeable to those services. She has made a plan for a neighbor to move in with her and act as her caregiver. A hospice consult order will be placed. Ms. Silva is a DNR level 2. She does not want to be placed on a ventilator if needed. The Palliative Care team will continue to follow. Dictated by PEPE Solitario for Dustin Martin MD cc: PEPE Solitario MD [facility]
[2016-07-01] MEDS: MELATONIN PO SCH (21:07)
[2016-07-01] MEDS: LEXAPRO PO SCH (21:07)
--- NOTE | 2016-07-01 21:50 | PROGRESS NOTE ---
DATE: 07/01/2016 SUBJECTIVE: Today Ms. Silva referred to be doing fine. She still has some shortness of breath and needing high concentration of oxygen. She has not been able to do any form of testing because of her breathing problems and her need for oxygen, also I think remarkable anxiety and panic attacks. OBJECTIVE: Vital Signs: Today blood pressure is 103/65, pulse of 61 respirations 17, temperature is 98.0 degrees, patient is saturating 96% on a face mask. General examination: Ms. Silva is a 55-year-old, female. She was sitting up in a chair, in no distress. HEENT: Mucosa is pink and moist. Anicteric. Acyanotic. Neck: Supple. Chest: Air entry is bilaterally reduced. There is diffuse bilateral crepitations in the posterior lung field. There is a generator pocket on the left anterior chest wall. Cardiovascular: Regular rate and rhythm. Abdomen: Distended there is fluid infiltration in the abdominal wall. Extremities: About 4+ pedal edema. There is still some redness on especially the right lower extremity with some blebs today. LABORATORY DATA: Reviewed. There is no major abnormality. Creatinine is 1.5. This is a whole lot better than days before. A chest x-ray today continues to show worsening bilateral alveolar infiltrates suggesting pulmonary edema. ASSESSMENT: 1. Respiratory distress secondary to bilateral pleural effusion, pulmonary edema and atelectasis. 2. Left-sided chest pain likely due to musculoskeletal. Patient had fall. Chest x-ray was unremarkable for any fracture. Patient has not been able to do a CT scan of the chest because she cannot lie flat. 3. Acute on chronic congestive heart failure both diastolic and systolic. Cardiology is on board. 4. Vitamin D deficiency. 5. Acute on chronic renal failure (stage 3A). 6. Anasarca due to underlying heart failure. 7. Depression and anxiety disorder with panic attacks. 8. Chronic pain syndrome. 9. NSTEMI. cardiology on board PLAN: In general, Ms. Silva has been in the hospital 32 days, presenting mainly because of shortness of breath and fluid overload. Patient also presented with NSTEMI which Cardiology wants to stress or do a left heart catheterization. However, patient has not been able to lie flat for any intervention. Nephrology has been consulted but patient has no indication for dialysis because she makes very good urine. The patient has been tried on maximum doses of diuretics. At that time blood pressures were getting low and her renal function was getting worse, so we had to back off. I discussed the issue extensively with Nephrology and also with Cardiology, and at this point there is nothing that they can do to improve her fluid overload/anasarca. Patient is going to be discharged on hospice. We consulted hospice today and they are going to arrange for all that she will be needing at home and then hopefully we can discharge the patient home tomorrow on hospice. Patient is aware and she is in agreement to go home on hospice. She only wants her pain medication to be optimized and her anxiety medication also to be optimized. cc: Clarence Iglesias MD MTDD
[2016-07-02] MEDS: DUONEB (A & A) INH SCH ×4 (02:55→16:07)
--- NOTE | 2016-07-02 05:31 | EKG Report ---
Test Performed on : 07/02/2016 02:49:13 AM Test Reason : No Order in Rain Blood Pressure : / mmHG Vent. Rate : 065 BPM Atrial Rate : 065 BPM P-R Int : 190 ms QRS Dur : 090 ms QT Int : 368 ms P-R-T Axes : 023 -01 105 degrees QTc Int : 382 ms Normal sinus rhythm. Low voltage QRS Anterolateral infarct (cited on or before 26-MAY-2013) Abnormal ECG When compared with ECG of 29-JUN-2016 03:26, No significant change was found Confirmed by Brett Florian MD ([id number]) on 07/02/2016 3:19:13 PM
[2016-07-02] MEDS: PRILOSEC PO SCH (06:11)
[2016-07-02] MEDS: ADVAIR 250/50 DISKUS INH SCH (07:52)
[2016-07-02] MEDS: MIRALAX PO SCH (08:06)
[2016-07-02] MEDS: NICODERM PATCH TD SCH (08:06)
[2016-07-02] MEDS: PHOSLO PO SCH ×2 (08:06→12:59)
[2016-07-02] MEDS: ALDACTONE PO SCH (08:06)
[2016-07-02] MEDS: PLAVIX PO SCH (08:06)
[2016-07-02] MEDS: LOPRESSOR PO SCH (08:06)
[2016-07-02] MEDS: SUBOXONE 8 MG/2 MG SL SCH (08:07)
[2016-07-02] MEDS: LANOXIN IV SCH (08:08)
[2016-07-02] MEDS: LANTUS SUBQ SCH (08:09)
[2016-07-02] MEDS ORDERED: KEFLEX PO SCH (09:00)
[2016-07-02] MEDS: XANAX PO PRN ×2 (09:42→16:09)
--- NOTE | 2016-07-02 11:43 | PALLIATIVE CARE PROGRESS NOTE ---
DATE: 07/02/2016 SUBJECTIVE: Ms. Silva is sitting up in the bedside chair. She continues to complain of shortness of breath and anxiety. OBJECTIVE: General: This is a 55-year-old obese female who does not appear to be in any acute distress. HEENT: Atraumatic, normocephalic. Neck: Trachea is midline. Cardiovascular: Regular rate and rhythm. Pulmonary: Lung sounds are diminished, with crackles auscultated bilaterally. Abdomen: Soft. Bowel sounds are active. Extremities: Pulses are palpable. Compression boots noted to bilateral lower extremities. Neurologic: Awake, alert, oriented to person, place, and time. ASSESSMENT AND PLAN: From what I understand, [facility] is reviewing Ms. Silva' chart to determine if they will be able to accept her as a patient. As mentioned, Ms. Silva continues to complain of shortness of breath and anxiety. She continues to require high-flow oxygen. I am going to increase her Xanax to help with her anxiety. Ms. Silva remains a DNR level 2. The Palliative Care team will continue to follow. Dictated by PEPE Solitario for Dustin Martin MD cc: PEPE Solitario MD
[2016-07-02] MEDS: MUCOMYST 20% PO SCH (16:16)
[2016-07-02 16:31] VITALS: BP 96/54
--- NOTE | 2016-07-02 20:02 | DISCHARGE SUMMARY ---
ADMISSION DATE: 05/30/2016 DISCHARGE DATE: 07/02/2016 DATE OF ADMISSION: 05/30/2016. DATE OF DISCHARGE: 07/02/2016. CONSULTATIONS: 1. Dr. rGoss of Cardiology. 2. Dr. Jennings with Nephrology. 3. Elva Vela with Palliative Care. PERTINENT PROCEDURES: Echocardiogram: Showed: 1. Ejection fraction of 45% with segmental wall abnormality, especially at the level of the inferior wall. 2. Mild degree of pulmonary hypertension. Carotid Doppler: Showed disease in bilateral common carotid arteries. Renal ultrasound: Showed bilateral pleural effusions. Chest x-ray: Showed: 1. No left rib fracture. 2. Stable bilateral infiltrates. 3. Pleural effusion. DISCHARGE DIAGNOSES: 1. Volume overload secondary to congestive heart failure. The patient still remains to have volume on board. However, it does not compromise her breathing status. However, she is unable lay flat for any type of cardiac intervention. The patient is being discharged home with hospice. 2. Chronic kidney disease, stage 3. 3. Non-STEMI. 4. Vitamin D deficiency. 5. Hypertension. 6. Depression and anxiety. 7. Bilateral lower extremity mild cellulitis on top of swelling. HOSPITAL COURSE: Briefly, Ms. Silva has been in the hospital about 33 days, presenting mainly with shortness of breath and volume overload. Also, presented with a non-STEMI, which Cardiology wanted to do a stress and/or left heart catheterization. However, the patient has not been able to lie flat for any intervention. Nephrology was consulted with no indications for a dialysis because she makes very good urine. The patient was tried on maximum doses of diuretics. At that time, blood pressures were getting low. Her renal function was getting worse, so they had to back off. The case has been discussed extensively with Nephrology as well as Cardiology, to the point there is nothing else they can do to improve her fluid volume overload and . The patient was initially going to be discharged to rehabilitation. However, she is now going to be discharged with hospice services. DISCHARGE VITAL SIGNS: Temperature is 97.6 degrees, heart rate 67, respirations 20, blood pressure is 82/92, O2 is 94% on 15 L Ventimask. DISCHARGE DIET: Healthy heart. DISCHARGE MEDICATIONS: Please see MAR. FOLLOWUP CARE: The patient is being discharged home with hospice and with [facility]. She will continue the medication she was on here in the hospital, as well as other medications by hospice to make her comfortable. DISCHARGE TIME: Greater than 30 minutes. This is PEPE Kelly, dictating a discharge summary for Dr. Diaz. Dictated by PEPE Kelly for Anselmo Diaz MD cc: Anselmo Diaz MD
== END 2016-07-02 17:14 | disposition hospice, home (50) ==
LOC: ED 16:55 → 3S 05-30 00:16 → SUATTDRO 05-30 00:16 → 3S 05-30 19:50 → 3N 06-14 16:55
PROVIDERS: ATTEND Emergency Medicine

== ENCOUNTER 2016-07-04 11:12 | Inpatient (IN) ==
[2016-07-04 11:56] LABS: ALLEN TEST YES; BLOOD TYPE ARTERIAL; DRAW SITE L RADIAL; METHB 0.8 % (0.0-1.5); O2(CT) 13.4 mL/dL (15.0-23.0); PCO2(98.6) 48 mmHg (35-45); PO2(98.6) 58 mmHg (60-100); SAMPLE BLOOD; SAO2 91.6 % (95.0-100.0); THB 10.7 g/dL (11.5-17.4); pH(98.6) 7.41 (7.35-7.45)
[2016-07-04 11:59] LABS: MODALITY CANNULA
[2016-07-04 12:10] LABS: MANUAL DIFF NEEDED? NO
[2016-07-04 12:19] LABS: BASO% 0.4 % (0.0-0.8); EOS# 0.07 X1000 (0.0-0.7); EOS% 0.7 % (0.0-10.0); HEMOGLOBIN 11.5 g/dL (12.0-16.0); IMM GRAN# 0.02 X1000 (0.0-0.04); IMM GRAN% 0.2 % (0.0-0.5); LYMPH# 1.39 X1000 (1.2-3.4); MCH 26.7 PG (27-31); MCHC 30.3 g/dL (33-37); MCV 88.4 FL (81-99); MONO# 1.18 X1000 (0.11-0.59); MPV 11.6 FL (7.4-10.4); NEUT% 74.7 % (42.2-75.2); PLT 261 X1000 (130-400)
[2016-07-04 12:26] LABS: INR 1.26; PROTIME 13.4 Seconds (9.2-11.7); PTT 27.5 Seconds (22.0-36.0)
--- NOTE | 2016-07-04 12:31 | Diag Imaging Result Document ---
PROCEDURE NAME: CHEST-PORTABLE - 07/04/2016 PORTABLE CHEST X-RAY: COMPARISON: 07/01/2016. FINDINGS: Stable pacemaker. Stable significant cardiomegaly. There is perhaps some slight improvement in the background ill-defined infiltrates bilaterally compatible with pulmonary edema. Stable focal infiltrate in the left upper lobe which may represent pneumonia. There are stable bilateral pleural effusions. IMPRESSION: Pulmonary edema plus or minus pneumonia. Slight improvement from prior.
[2016-07-04 12:32] LABS: ALBUMIN 3.1 g/dL (3.5-5.0); CALCIUM 9.2 mg/dL (8.8-10.2); POTASSIUM 4.3 mmol/L (3.5-5.1); TOTAL BILIRUBIN 0.67 mg/dL (0.20-1.00); TOTAL PROTEIN 5.9 g/dL (6.3-8.3)
--- NOTE | 2016-07-04 12:33 | EKG Report ---
Test Performed on : 07/04/2016 11:33:41 AM Test Reason : AMS Blood Pressure : / mmHG Vent. Rate : 062 BPM Atrial Rate : 062 BPM P-R Int : 204 ms QRS Dur : 092 ms QT Int : 388 ms P-R-T Axes : 017 -05 261 degrees QTc Int : 393 ms Normal sinus rhythm. Possible Left atrial enlargement Low voltage QRS Cannot rule out Anteroseptal infarct (cited on or before 26-MAY-2013) Abnormal ECG When compared with ECG of 02-JUL-2016 02:49, No significant change was found Unconfirmed Result
--- NOTE | 2016-07-04 12:34 | Diag Imaging Result Document ---
PROCEDURE NAME: HEAD W/O CONTRAST - 07/04/[address]: A CT dose reduction protocol was used. COMPARISON: 06/22/2013. FINDINGS: The ventricles and sulci are normal in size and contour. There is no mass, hemorrhage, or evidence of acute ischemia. The bony calvaria is intact. The visualized paranasal sinuses and mastoid air cells are clear. IMPRESSION: Negative head CT. [facility]
[2016-07-04] MEDS ORDERED: NARCAN IV ONE (13:14)
--- NOTE | 2016-07-04 13:55 | PROVIDER DOCUMENTATION ---
This chart was entered by Johanna Matamoros Scribe, acting as scribe for Geovany Lowe MD. HPI-Neurological Disorder - General Chief Complaint: Altered Mental Status Stated Complaint: decreased LOC Time Seen by Provider: 07/04/16 11:14 Source: EMS Unable to obtain history due to:: altered Allergies/Adverse Reactions: Patient Allergies Allergy/AdvReac Type Severity Reaction Status Date / Time meperidine HCl * AdvReac Severe AGITATION Verified 07/04/16 11:30 [From Demerol] Home Medications: Home Medication List Medication Instructions Recorded Confirmed Last Taken Type Buprenorphine HCl/Naloxone HCl 8 mg SL BID 03/03/12 07/04/16 05/29/16 History [Suboxone 8 mg/2 mg Sl Film] Fluticasone/Salmeterol [Advair 1 each IH DAILY PRN 03/05/12 07/04/16 05/29/16 History 250-50 Diskus] Multivitamin [Multivitamins] 1 each PO DAILY 05/29/16 07/04/16 05/29/16 History Alprazolam [Xanax] 0.125 mg PO BID PRN PRN #0 tablet 06/26/16 07/04/16 Unknown Rx Calcium Acetate [Phoslo] 667 mg PO TID CC tablet 06/26/16 07/04/16 Unknown Rx Clopidogrel [Plavix] 75 mg PO DAILY tablet 06/26/16 07/04/16 Unknown Rx Escitalopram [Lexapro] 20 mg PO QHS tablet 06/26/16 07/04/16 Unknown Rx Metoprolol [Lopressor] 12.5 mg PO BID tablet 06/26/16 07/04/16 Unknown Rx Nicotine Patch [Nicoderm Patch] 7 mg TD DAILY patch.[id number] 06/26/16 07/04/16 Unknown Rx Omeprazole [Prilosec] 20 mg PO DAILY@0700 capsule 06/26/16 07/04/16 Unknown Rx Spironolactone [Aldactone] 25 mg PO BID tablet 06/26/16 07/04/16 Unknown Rx CephALEXIN [Keflex] 500 mg PO Q12H capsule 07/02/16 07/04/16 Unknown Rx Digoxin [Digitek] 125 mcg PO DAILY #30 tablet 07/02/16 07/04/16 Unknown Rx Insulin Glargine [Lantus] 15 unit SUBQ QAM insuln.pen 07/02/16 07/04/16 Unknown Rx Melatonin 3 mg PO QHS tablet 07/02/16 07/04/16 Unknown Rx Menthol/Zinc Oxide Ointment 1 gm TOP PRN PRN #0 tube 07/02/16 07/04/16 Unknown Rx [Calmoseptine Ointment] Polyethylene Glycol 3350 [Miralax] 17 gm PO DAILY powder, packet 07/02/1607/04 Unknown Rx - History of Present Illness-Neuro Nature of Presenting Problem: 55 y/o F presents to ED via EMS. EMS states pt was put on hospice x 3 days ago. Pt was seen normal last night. This morn pt was found on floor by hospice nurse. Pt had Ativan filled yesterday with 42 pills. This am only 16 Ativan was found in bottle. EMS reports that hospice nurse stated morphine was missing from bottle to. Unknown amount. It is unkown if pt has any injury from fall. On exam pt is drowsy and agitated. Pt can be woken verbally. Hard to exam pt due to agitation, not cooperative, and altered/confused. Pt is also very drowsy and difficult to keep pt awake. Headache Location: reports: other (pt has generlized pain all over body) Severity: reports: mild Onset/Duration: reports: unsure Timing: reports: still present Context: reports: found unresponsive by bystander (hospice nurse) Character of Altered Mental Status: reports: agitated, other (drowsy/ altered) Any recent trauma/injury?: reports: other (pt was found on floor this am. Unknown injury) New weakness or altered sensation location:: reports: other (unkown) Cognitive Baseline: other (altered/ drowsy / AOX1) Gait Baseline: walks only with assistance Associated Symptoms: reports: other (AMS) Similar Symptoms Previously?: No Recently seen or treated by another doctor?: No - Seizure First time to have a seizure?: No Witnessed seizure?: No Review of Systems - Adult - REVIEW OF SYSTEMS - ADULT ROS:: unobtainable per condition (pt is altered/ decreased LOC/ drowsy- unable to stay awake) Constitutional: denies: chills, fever Musculoskeletal: reports: other (AMS) Past History - Adult - PAST MEDICAL HISTORY-ADULT Review of Records: reports: Old Records Reviewed Major Childhood Illnesses: reports: denies history Cardiovascular: reports: cardiac disease, A-Fib, angina, CAD, CHF, HTN, hyperlipidemia, MA, pacemaker (with defibrillator), pericardial disease Respiratory: reports: asthma, bronchitis, COPD Gastrointestinal: reports: denies history Obstetrical/Gynecological: reports: denies history Genitourinary: reports: denies history Musculoskeletal: reports: chronic pain, intervertebral disc disease, neck/back injury, orthopedic injury Neurological: reports: CVA Psychiatric: reports: anxiety Endocrine/Immune: reports: denies history Other Conditions: reports: denies history - PRIOR SURGERIES/PROCEDURES Surgical/Procedure History: reports: cholecystectomy, pacemaker, hysterectomy - IMMUNIZATION STATUS Childhood Immunizations: See Nurse Assessment Flu Vaccine: See Nurse Assessment - FAMILY HISTORY Family History: reviewed, not pertinent - SOCIAL HISTORY Smoking: greater than 1 pack/day Provider spent 3-5 mins advising pt. on dangers of tobacco.: Discussed manners to quit use, and f/u contacts for add'l counseling. Physical Exam- Neurological - Physical Exam-Neuro Initial Vital Signs Reviewed: Yes General Appearance: obese, other (agitated/ ams/ drowsy) Eye Exam: bilateral eye: normal inspection, PERRL HENMT: normocephalic/atraumatic Head Injury: no evidence of injury Neck: full range of motion Respiratory: lungs clear, normal breath sounds Cardiovascular: normal peripheral pulses, regular rate, rhythm Abdominal Exam: normal bowel sounds, soft Lymphatic: no adenopathy Extremity: pedal edema, tenderness rand cementer Exam: abnormal speech Neurologic: other (drowsy/ altered/ confused) Integumentary: normal color Psych/Mental Status: other (agitated/ ams / drowsy) - Glascow Coma Scale Best Eye Response: (3) open to voice Best Verbal Response: (2) incomprehsible sounds Best Motor Response: (4) withdraws to pain Total Glascow Score: 9 Progress - PLAN OF CARE/RESULTS Progress/Plan/Lab Results: Vital Signs - 8 hr 07/04/16 11:29 Temperature 98.7 F Pulse Rate 78 Respiratory Rate 20 Blood Pressure 127/58 O2 Sat by Pulse Oximetry 97 Laboratory Results - last 24 hr 07/04/16 07/04/16 07/04/16 11:23 11:50 11:50 WBC 10.69 RBC 4.30 Hgb 11.5 L Hct 38.0 MCV 88.4 MCH 26.7 L MCHC 30.3 L RDW Std Deviation 15.6 H Plt Count 261 MPV 11.6 H Immature Gran % (Auto) 0.2 Neut % (Auto) 74.7 Lymph % (Auto) 13.0 L Monroe % (Auto) 11.0 H Eos % (Auto) 0.7 Baso % (Auto) 0.4 Immature Gran # (Auto) 0.02 Neut # (Auto) 7.99 H Lymph # (Auto) 1.39 Monroe # (Auto) 1.18 H Eos # (Auto) 0.07 Baso # (Auto) 0.04 PT INR PTT (Actin FS) Specimen Type ARTERIAL Sample Site L RADIAL pH 7.41 pCO2 48 H pO2 58 L HCO3 28.7 H Base Excess 5.0 H Oxyhemoglobin 88.6 L* ABG O2 Sat (Calculated) 13.4 L ABG O2 Saturation 91.6 L ABG Carboxyhemoglobin 2.50 ABG Methemoglobin 0.8 Anselmo Test YES A-a O2 Difference 196.0 Total Hemoglobin 10.7 L Lactate 0.90 Liter Flow 6.0 Blood Gas Modality CANNULA FiO2 % 44.0 Sodium Potassium Chloride Carbon Dioxide Anion Gap BUN Creatinine Estimated GFR/1.73 m2 BUN/Creatinine Ratio Glucose Calculated Osmolality Calcium Total Bilirubin AST ALT Alkaline Phosphatase Creatine Kinase Troponin T Total Protein Albumin Globulin Albumin/Globulin Ratio Plasma Lactate Plasma/Serum Ethyl Alc 07/04/16 07/04/16 07/04/16 11:50 11:50 11:50 WBC RBC Hgb Hct MCV MCH MCHC RDW Std Deviation Plt Count MPV Immature Gran % (Auto) Neut % (Auto) Lymph % (Auto) Monroe % (Auto) Eos % (Auto) Baso % (Auto) Immature Gran # (Auto) Neut # (Auto) Lymph # (Auto) Monroe # (Auto) Eos # (Auto) Baso # (Auto) PT 13.4 H INR 1.26 PTT (Actin FS) 27.5 Specimen Type Sample Site pH pCO2 pO2 HCO3 Base Excess Oxyhemoglobin ABG O2 Sat (Calculated) ABG O2 Saturation ABG Carboxyhemoglobin ABG Methemoglobin Anselmo Test A-a O2 Difference Total Hemoglobin Lactate Liter Flow Blood Gas Modality FiO2 % Sodium 143 Potassium 4.3 Chloride 98 Carbon Dioxide 27 Anion Gap 18 BUN 52 H Creatinine 1.3 H Estimated GFR/1.73 m2 43 BUN/Creatinine Ratio 40 Glucose 110 H Calculated Osmolality 300 Calcium 9.2 Total Bilirubin 0.67 AST 32 H ALT 25 Alkaline Phosphatase 79 Creatine Kinase 122 Troponin T Total Protein 5.9 L Albumin 3.1 L Globulin 2.8 Albumin/Globulin Ratio 1.1 Plasma Lactate 1.6 Plasma/Serum Ethyl Alc 07/04/16 11:50 WBC RBC Hgb Hct MCV MCH MCHC RDW Std Deviation Plt Count MPV Immature Gran % (Auto) Neut % (Auto) Lymph % (Auto) Monroe % (Auto) Eos % (Auto) Baso % (Auto) Immature Gran # (Auto) Neut # (Auto) Lymph # (Auto) Monroe # (Auto) Eos # (Auto) Baso # (Auto) PT INR PTT (Actin FS) Specimen Type Sample Site pH pCO2 pO2 HCO3 Base Excess Oxyhemoglobin ABG O2 Sat (Calculated) ABG O2 Saturation ABG Carboxyhemoglobin ABG Methemoglobin Anselmo Test A-a O2 Difference Total Hemoglobin Lactate Liter Flow Blood Gas Modality FiO2 % Sodium Potassium Chloride Carbon Dioxide Anion Gap BUN Creatinine Estimated GFR/1.73 m2 BUN/Creatinine Ratio Glucose Calculated Osmolality Calcium Total Bilirubin AST ALT Alkaline Phosphatase Creatine Kinase Troponin T 0.173 H Total Protein Albumin Globulin Albumin/Globulin Ratio Plasma Lactate Plasma/Serum Ethyl Alc Orders Category Date Time Status Cardiac Monitoring DIRECTED Care 07/04/16 11:23 Active Finger Stick Blood Sugar (ED) DIRECTED Care 07/04/16 11:23 Active Oxygen Therapy- ED Nursing DIRECTED Care 07/04/16 11:23 Active Saline Loc NOW Care 07/04/16 11:23 Active CHEST-PORTABLE [RAD] Stat Exams 07/04/16 11:23 Draft HEAD W/O CONTRAST [CT] Stat Exams 07/04/16 11:24 Draft ABG [RESP] Routine Lab 07/04/16 11:23 Completed ALCOHOL BLOOD Stat Lab 07/04/16 11:50 Completed CBC WITH ELECTRONIC DIFF [HEME] Stat Lab 07/04/16 11:50 Completed CK PROFILE [SP CHEM] Stat Lab 07/04/16 11:50 Completed COMPREHENSIVE METABOLIC PANEL [CHEM] Stat Lab 07/04/16 11:50 Completed LACTATE, PLASMA [CHEM] Stat Lab 07/04/16 11:50 Completed PROTIME WITH INR [COAG] Stat Lab 07/04/16 11:50 Completed PTT [COAG] Stat Lab 07/04/16 11:50 Completed TROPONIN T Stat Lab 07/04/16 11:50 Completed URINALYSIS W/POSS RFLX CULT-1 [URINALYSIS] Stat Lab 07/04/16 11:23 Uncollected URINE DRUG SCREEN Stat Lab 07/04/16 11:23 Uncollected Naloxone [Narcan] Med 07/04/16 13:14 Discontinued 0.4 mg IV NOW ONE Pulse Oximetry Stat Oth 07/04/16 11:23 Active EKG [EKG] Stat Ther 07/04/16 11:23 Draft Result Diagrams: 07/04/16 11:50 07/04/16 11:50 - XRAY 1 XRAY Study: Chest Impression: See EMR Report - CT/MRI 1 CT Study: Head Impression: See EMR Report - CONSULTS/PCP/HOSPITALIST Notification #1 *Consult/PCP/Hospitalist*: Dr Collier Time Discussed: 13:53 Consult Disposition: Will see in ED, Admit Departure - Departure Time of Disposition Decision: 13:53 DIAGNOSIS: Altered mental status, unspecified Qualifiers: Altered mental status type: unspecified Qualified Code(s): R41.82 - Altered mental status, unspecified Medication overdose Qualifiers: Encounter type: initial encounter Injury intent: undetermined intent Qualified Code(s): T50.904A - Poisoning by unspecified drugs, medicaments and biological substances, undetermined, initial encounter Disposition: ADMITTED INPATIENT 09 Certified Medical Emergency: Emergent Condition: Fair Referrals and Follow-Ups: None,PCP [Primary Care Provider] - - Critical Care Note This patient required my direct & personal management of CC.: No Comments: pt presented altered and per history might have overdose intention unk, GCS 9 CT head was negative will admit, pt stable This chart was documented by the indicated scribe, (Johanna Matamoros Scribe) and accurately reflects the services I performed and decisions made by me, Geovany Lowe MD, as attested by the provider's signature.
--- NOTE | 2016-07-04 13:56 | ED EKG INTERP ---
This chart was entered by Johanna Matamoros Scribe, acting as scribe for Geovany Lowe MD. EKG Interpretation - EKG Time of EKG reading by physician:: 11:38 EKG Read and Signed by:: Geovany Lowe EKG Interpretation (*Must complete 3 of following elements*): Abnormal Rhythm: NSR [place]: normal QRS: other (low voltage) OR Interval: normal ST Wave: non-specific ST changes This chart was documented by the indicated scribe, (Johanna Matamoros Scribe) and accurately reflects the services I performed and decisions made by Chrissy hooks Rahman F., MD, as attested by the provider's signature.
[2016-07-04 14:25] LABS: URINE CULTURE NEEDED? NO; URINE MICRO REVIEW NEEDED? NO; URINE SOURCE CATH
[2016-07-04 14:30] LABS: BILIRUBIN URINE NEGATIVE (NEGATIVE); BLOOD URINE NEGATIVE (NEGATIVE); COLOR YELLOW; GLUCOSE URINE NEGATIVE (NEGATIVE); LEUKOCYTES URINE NEGATIVE (NEGATIVE); NITRITE URINE NEGATIVE (NEGATIVE); PH URINE 5.5; PROTEIN URINE 100 mg/dL (NEGATIVE); SP GRAVITY URINE 1.021; TURBIDITY URINE CLEAR (CLEAR); UROBILINOGEN URINE 2 mg/dL (NORMAL)
[2016-07-04 14:31] LABS: UR EPITHELIAL CELLS <10 /HPF (<10); URINE BACTERIA NEGATIVE /HPF; URINE RBC <10 /HPF (<10); URINE WBC <10 /HPF (<10)
[2016-07-04 14:44] LABS: UR AMPHETAMINES QUAL NONE DETECTED (NONE DETECT); UR BARBITUATES QUAL NONE DETECTED (NONE DETECT); UR BENZODIAZEPIN QUAL PRESUMPTIVE POSITIVE (NONE DETECT); UR CANNABINOIDS QUAL NONE DETECTED (NONE DETECT); UR COCAINE QUAL NONE DETECTED (NONE DETECT); UR METHADONE QUAL NONE DETECTED (NONE DETECT); UR OPIATES QUAL PRESUMPTIVE POSITIVE (NONE DETECT); UR OXYCODONE QUAL NONE DETECTED (NONE DETECT); UR PCP QUAL NONE DETECTED (NONE DETECT)
[2016-07-04] MEDS ORDERED: ROMAZICON IV ONE (14:46)
[2016-07-04] MEDS ORDERED: CALMOSEPTINE OINTMENT TOP PRN (16:11)
[2016-07-04] MEDS: DUONEB (A & A) INH SCH ×3 (16:31→23:23)
[2016-07-04] MEDS: ZOSYN 3.375 GM/NS 3.375 GM/50 ML IVPB IV SCH ×2 (16:32→21:05)
[2016-07-04] MEDS: NS 1,000 ML IV SCH (16:36)
--- NOTE | 2016-07-04 16:39 | HISTORY AND PHYSICAL ---
PRIMARY CARE PROVIDER: Jeff Bills MD. LAMP SHADE JOINER: Duncan Gross MD. FARM[employer]: Raymond Jennings MD. CHIEF COMPLAINT: Was found unconscious. HISTORY OF PRESENT ILLNESS: Ms. Mack Silva is a 55-year-old, female with a medical history of chronic systolic congestive heart failure, atrial fibrillation, diabetes mellitus type 2, multiple myocardial infarctions with stenting, whose most recent admit was from May 30 to July 02. She was diagnosed with non-NSTEMI, volume overload secondary to congestive heart failure with an EF of 45%, CKD stage 3, depression and anxiety. During her stay her oxygen requirements increased to 15 L. She could not lie flat for cardiac catheterization. She did not tolerate diuresis. Kidney function had worsened and she was becoming hypotensive with the diuresis. She was followed by Palliative Care and then placed on hospice. She was sent home with hospice care which the daughter states was [facility]. Apparently she went home on Friday. On Friday, yesterday morning, according to the daughter hospice had turned down her oxygen to 6 L to try and get her back to [facility]. This morning hospice found her face down on the ground and the daughter had walked in about 0930 and the patient was still face down on the ground. It is unknown whether the patient had taken Ativan, morphine or Xanax. Apparently there were 2 bottles that were empty of pills. She was brought into the ER and was given Narcan with minimal response. Romazicon has been ordered. So far her airway is patent. She will awaken and tell me her name. She does have some mild hypoxemia with her being on 6 L nasal cannula at the time. Her PO2 is down to 58. Her urine drug screen came back positive of opiates and benzodiazepines, and negative for alcohol. We will admit to the ICU for close monitoring. Re-consult Palliative Care and likely re-consult Hospice. PAST MEDICAL HISTORY: Anxiety, depression, diabetes mellitus type 2, coronary artery disease with multiple myocardial infarctions status post stent, atrial fibrillation, COPD, chronic pain syndrome, CKD stage 2 to 3, chronic systolic congestive heart failure with 45% EF, recent non- STEMI, vitamin D deficiency, hypertension, bilateral lower extremity chronic cellulitis, history of ovarian cancer. PAST SURGICAL HISTORY: Cardiac stents, hysterectomy, cholecystectomy, skin graft to the right upper arm, back fusions x2, permanent pacemaker with replacement. SOCIAL HISTORY: Lives at home. Was smoking 1-2 packs of cigarettes per day. Unknown if she resumed smoking once she was discharged. She apparently had denied alcohol or substance abuse. She did take Suboxone for chronic back pain. She was started on Xanax here for her anxiety and apparently was started on Ativan and morphine with hospice. She was sent home. She lives at home alone. She had neighbors that were attempting to help her. FAMILY HISTORY: Mother: Diabetes and colon cancer. Father: Diabetes and prostate cancer. ALLERGIES: Demerol. HOME MEDICATIONS: Apparently there is morphine and Ativan but it is not listed under her home medications. Xanax, Suboxone, PhosLo, Keflex, Plavix, Digitek, Lexapro, Advair, Lantus, melatonin, Calmoseptine, Lopressor, multivitamins, nicotine patch, Prilosec, MiraLAX, Aldactone. REVIEW OF SYSTEMS: Difficult to obtain. Patient stated she did not take any extra medications. LABORATORY DATA: White blood cells 10,000, hemoglobin 11, hematocrit 38, platelet count 261,000. INR 1.26, PTT is 27.5. ABG: pH 7.4, pCO2 48, PO2 58, bicarbonate 28, base excess 5, oxyhemoglobin 88%, lactate 0.9. This is on 6 L nasal cannula. Sodium 143, potassium 4.3, BUN 52, creatinine 1.3, glucose 110, bilirubin 0.667, AST 32, ALT 25, CK 122, troponin 0.173. Serum lactate 1.6. Urinalysis 100 protein, 10 ketones, 2 urobilinogen dipsticks. Urine drug screen: Opiates positive. Benzodiazepines positive. Alcohol negative. IMAGING: Head CT: Negative head CT. EKG: Normal sinus rhythm, no ST elevations. Rate was 62. Chest x-ray: Pulmonary edema +/- pneumonia. Slight improvement from prior. PHYSICAL EXAMINATION: VITAL SIGNS: Temperature 98.7 degrees, heart rate 61, respiratory rate 16, blood pressure 116/64, O2 saturation 97% on 6 L nasal cannula. She is on 15 L, 50% Venturi now. 5 feet 4 inches tall, 250 pounds, BMI 42.9. GENERAL: Ms. Claudio is an ill-appearing, 55-year-old, female. She is unable to answer questions at this time. HEENT: Atraumatic, normocephalic. Pupils are equal and reactive but sluggish. We will not perform extraocular movements. Mucous membranes are dry. NECK: No JVD or carotid bruits noted. CARDIOVASCULAR: Irregularly irregular rhythm. No rubs, gallops, murmurs. PULMONARY: Decreased in the bases. Clear to auscultate. No accessory muscle use or work of breathing noted. Currently on 50% Venturi. GI: Soft, nontender, nondistended. Positive bowel sounds x4. EXTREMITIES: +1 edema in the lower extremities with some redness. +2 dorsalis and radial pulses. NEUROLOGIC: Oriented to name only. Otherwise will not wake up and follow commands. ASSESSMENT AND PLAN: 1. Toxic encephalopathy likely secondary to recent medication use of Ativan, morphine - not certain. She did not respond to Narcan very well. Romazicon has been ordered. 2. Syncope could be cardiac related. Head CT was negative or it could be related to ingestion of prescription medications. 3. Acute hypoxemic respiratory insufficiency. Continue with 50% Venturi mask. We will continue with nebulizers. 4. Systolic congestive heart failure. Oral medications are being held at this time. We will need to resume as soon as she is able to awake and swallow her medications. 5. Chronic pain syndrome. Hold Suboxone for now. 6. Atrial fibrillation. Rate stable. She does have a permanent pacemaker and defibrillator. 7. Chronic obstructive pulmonary disease. No exacerbation. 8. Recently sent home with hospice care. We will re-consult Palliative Care. 9. Possible pneumonia. We will start Zosyn. Dictated by PEPE Hatch for Noah Villeda MD cc: PEPE Hatch MD
[2016-07-04] MEDS: PULMICORT INH SCH (19:59)
[2016-07-05] MEDS: DUONEB (A & A) INH SCH ×6 (03:56→23:15)
[2016-07-05] MEDS: ZOSYN 3.375 GM/NS 3.375 GM/50 ML IVPB IV SCH ×4 (04:20→23:01)
[2016-07-05 04:54] LABS: ALLEN TEST YES; BE 3.4 mmoll (-3.0-3.0); BLOOD TYPE ARTERIAL; DRAW SITE R RADIAL; METHB 0.7 % (0.0-1.5); O2(CT) 15.9 mL/dL (15.0-23.0); PO2(98.6) 90 mmHg (60-100); SAMPLE BLOOD; SAO2 97.6 % (95.0-100.0); THB 11.8 g/dL (11.5-17.4); pH(98.6) 7.36 (7.35-7.45)
[2016-07-05 04:55] LABS: MODALITY PRB; PCO2(98.6) 53 mmHg (35-45)
[2016-07-05 04:57] LABS: MANUAL DIFF NEEDED? NO
[2016-07-05 04:59] LABS: BASO% 0.5 % (0.0-0.8); EOS# 0.18 X1000 (0.0-0.7); EOS% 1.4 % (0.0-10.0); HEMATOCRIT 35.8 % (37.0-47.0); HEMOGLOBIN 10.6 g/dL (12.0-16.0); IMM GRAN# 0.02 X1000 (0.0-0.04); IMM GRAN% 0.2 % (0.0-0.5); LYMPH# 1.35 X1000 (1.2-3.4); LYMPH% 10.9 % (20.5-51.1); MCH 26.5 PG (27-31); MCHC 29.6 g/dL (33-37); MCV 89.5 FL (81-99); MONO# 1.04 X1000 (0.11-0.59); MONO% 8.4 % (1.7-9.3); MPV 11.6 FL (7.4-10.4); NEUT% 78.6 % (42.2-75.2); PLT 250 X1000 (130-400)
[2016-07-05 05:08] LABS: INR 1.2; PROTIME 12.7 Seconds (9.2-11.7); PTT 26.4 Seconds (22.0-36.0)
[2016-07-05 05:21] LABS: ALBUMIN 2.6 g/dL (3.5-5.0); CALCIUM 8.8 mg/dL (8.8-10.2); POTASSIUM 3.9 mmol/L (3.5-5.1); TOTAL BILIRUBIN 0.53 mg/dL (0.20-1.00); TOTAL PROTEIN 5.9 g/dL (6.3-8.3)
[2016-07-05] MEDS: PULMICORT INH SCH (08:11)
[2016-07-05] MEDS: LOVENOX SUBQ SCH (09:36)
[2016-07-05] MEDS ORDERED: INSULIN PEN NEEDLES ONE (09:37)
[2016-07-05] MEDS: LANTUS SUBQ SCH (09:39)
[2016-07-05] MEDS: NICODERM PATCH TD SCH (09:39)
--- NOTE | 2016-07-05 13:10 | PROGRESS NOTE ---
DATE: 07/05/2016 SUBJECTIVE: The patient reports feeling better. The patient is complaining of extreme pain in the back. Feeling hungry. OBJECTIVE: Vital Signs: Temperature 97.6 degrees, heart rate 61, respiratory rate 12, blood pressure 133/79, and O2 saturation 92% on Venturi mask at 10 liters per minute. General: This is a chronically ill-looking, frail, and looking older than her age 55-year-old female, lying in bed, in no acute distress. HEENT: Head is normocephalic, atraumatic. Anicteric sclerae and pale conjunctivae. Mucous membranes moist. Neck: Supple. No JVD noted. No carotid bruits. No lymphadenopathy. No thyromegaly. Cardiovascular: S1 and S2 heard. No murmurs, gallops, or rubs. Regular rate and rhythm. Respiratory: Decreased breath sounds all over with few wheezing in both bases, but the patient is not using any accessory muscles or having work of breathing. Abdomen: Soft, nontender to palpation. Bowel sounds present. No organomegaly and no lymphadenopathy. Extremities: There is 1+ pitting edema in both lower extremities. Neurological: The patient is alert and oriented x3. Able to move 4 extremities. LABORATORY DATA: White cell count 12.44, hemoglobin 10.6, hematocrit 35.8, platelets 250,000. ABG shows pCO2 of 53, and pH 7.36. Creatinine 1.3. ASSESSMENT AND PLAN: 1. Toxic encephalopathy, likely secondary to recent Ativan overdose. Now, she is back to normal. 2. Syncope. I think this could be related to Ativan overdose, but now she is doing fine. 3. Acute hypoxemic respiratory failure. We will continue with Venturi mask. 4. Systolic congestive heart failure. Her medication will be restarted today. 5. Chronic pain syndrome. We are going to call pharmacy to confirm the dose of Suboxone that she is taking and we are going to restart it. 6. Atrial fibrillation. Rate is stable. 7. Chronic obstructive pulmonary disease, not in any exacerbation. We will continue with home medications. 8. Possible pneumonia. I do not think this patient with white cell count normal is getting pneumonia. We are going to continue with Zosyn for today. If she is not spiking a fever tomorrow, we will stop antibiotics. 9. Physical examination. We will consult physical therapy. Overall, this patient is doing much better. We had an extensive conversation with the family about goals of care. Apparently, the hospice company who was taking care of this patient did not inform the family about this patient going home last hospitalization. She has been admitted to the hospital for 32 days and considering that she has severe chronic obstructive pulmonary disease, severe congestive heart failure, and because of her oxygen needs she is not able to lay down to have any more procedures, hospice has been consulted. At this time, this patient is medically stable and ready to go, but because the family reports that she is not able to live by herself, we are going to contact a home health care social worker to see if we can send this patient to the shelter with hospice. Right now I explained to them that her condition is completely critical, and there are no medical options that we can offer to her. They acknowledged understanding. At this point, we are going to transfer this patient to a regular room. We are going to start a regular diet, and we will go from there. cc: Noah Villeda MD
[2016-07-05] MEDS ORDERED: SUBOXONE 8 MG/2 MG SL ONE ×2 (14:20→15:09)
[2016-07-05] MEDS ORDERED: SUBOXONE 2 MG/0.5 MG SL ONE ×2 (14:45)
[2016-07-05] MEDS: NS 1,000 ML IV SCH (15:56)
[2016-07-05] MEDS: PHOSLO PO SCH (16:31)
[2016-07-05] MEDS: ADVAIR 250/50 DISKUS INH SCH (19:36)
[2016-07-05] MEDS: SUBOXONE 8 MG/2 MG SL SCH (22:59)
[2016-07-05] MEDS: LEXAPRO PO SCH (22:59)
[2016-07-05] MEDS: LOPRESSOR PO SCH (23:00)
[2016-07-05] MEDS: ALDACTONE PO SCH (23:00)
[2016-07-05] MEDS: MELATONIN PO SCH (23:01)
[2016-07-06] MEDS: DUONEB (A & A) INH SCH ×6 (04:01→22:50)
[2016-07-06] MEDS: ZOSYN 3.375 GM/NS 3.375 GM/50 ML IVPB IV SCH ×4 (04:45→21:51)
[2016-07-06] MEDS: PRILOSEC PO SCH (07:00)
[2016-07-06 07:53] LABS: AGAP 12; ALBUMIN 2.9 g/dL (3.5-5.0); ALKALINE PHOSPHATASE 67 U/L (32-104); BUN 36 mg/dL (8-22); CHLORIDE 101 mmol/L (98-107); COSMO 293; GOT 20 U/L (10-30); GPT 22 U/L (10-36); POTASSIUM 3.5 mmol/L (3.5-5.1); SODIUM 142 mmol/L (136-145); TCO2 29 mmol/L (25-35); TOTAL BILIRUBIN 0.55 mg/dL (0.20-1.00); TOTAL PROTEIN 6.1 g/dL (6.3-8.3)
[2016-07-06 07:57] LABS: MANUAL DIFF NEEDED? NO
[2016-07-06] MEDS: ADVAIR 250/50 DISKUS INH SCH ×2 (08:03→19:26)
[2016-07-06 08:10] LABS: BASO% 0.7 % (0.0-0.8); EOS% 3.2 % (0.0-10.0); HEMATOCRIT 34.7 % (37.0-47.0); HEMOGLOBIN 10.3 g/dL (12.0-16.0); IMM GRAN# 0.02 X1000 (0.0-0.04); IMM GRAN% 0.2 % (0.0-0.5); LYMPH# 1.16 X1000 (1.2-3.4); LYMPH% 12.3 % (20.5-51.1); MCH 26.8 PG (27-31); MCHC 29.7 g/dL (33-37); MCV 90.4 FL (81-99); MONO# 1.12 X1000 (0.11-0.59); MONO% 11.9 % (1.7-9.3); MPV 11.7 FL (7.4-10.4); NEUT% 71.7 % (42.2-75.2); PLT 218 X1000 (130-400); RBC 3.84 XMIL (4.2-5.4)
[2016-07-06] MEDS ORDERED: INSULIN PEN NEEDLES ONE (09:01)
[2016-07-06] MEDS: NS 1,000 ML IV SCH ×2 (09:12→21:55)
[2016-07-06] MEDS: LANOXIN PO SCH (09:13)
[2016-07-06] MEDS: THERA M PLUS PO SCH (09:13)
[2016-07-06] MEDS: LOPRESSOR PO SCH ×2 (09:13→21:43)
[2016-07-06] MEDS: PHOSLO PO SCH ×3 (09:13→16:28)
[2016-07-06] MEDS: PLAVIX PO SCH (09:13)
[2016-07-06] MEDS: SUBOXONE 8 MG/2 MG SL SCH ×2 (09:13→21:42)
[2016-07-06] MEDS: ALDACTONE PO SCH ×2 (09:13→21:43)
[2016-07-06] MEDS: MIRALAX PO SCH (09:14)
[2016-07-06] MEDS: LOVENOX SUBQ SCH (09:14)
[2016-07-06] MEDS: LANTUS SUBQ SCH (09:14)
[2016-07-06] MEDS: NICODERM PATCH TD SCH (09:23)
[2016-07-06] MEDS: XANAX PO PRN ×2 (13:46→21:44)
--- NOTE | 2016-07-06 14:08 | PROGRESS NOTE ---
DATE: 07/06/2016 SUBJECTIVE: Patient is still complaining of pain despite being on her home medications. OBJECTIVE: Vital Signs: Temperature 98.5 degrees, heart rate 57, respiratory rate 20, blood pressure 194/61, O2 saturation 98% on non-rebreather mask at 15 L/minute. General examination: The patient is chronically ill-looking, malnourished, and very frail, looking older than her age. A 55-year-old female lying in bed in no acute distress. HEENT: Head is normocephalic and atraumatic. Anicteric sclerae and pale conjunctivae. Mucous membranes moist. Neck: Supple. No JVD noted. No carotid bruits. No lymphadenopathy. No thyromegaly. Cardiovascular: S1 and S2 heard. No murmurs, gallops, or rubs. Regular rate and rhythm. Respiratory: Clear bilaterally to auscultation. No work of breathing or using accessory muscles. Abdomen: Soft, nontender to palpation. Bowel sounds present. No organomegaly. Extremities: No clubbing, cyanosis, or edema. Peripheral pulses present in both legs. Respiratory: Decreased breath sounds globally with a few wheezes in both bases. Patient is not using any accessory muscles or having work of breathing. Abdomen: Soft, nontender to palpation. Bowel sounds present. No organomegaly. Extremities: Pitting edema 1+ in both lower extremities. Neurological: Patient is alert and oriented x3. Moves 4 extremities. LABORATORY DATA: Reviewed. ASSESSMENT AND PLAN: 1. Toxic encephalopathy, likely secondary to recent Ativan overdose, resolved. 2. Syncope. This condition has resolved. No more episodes while patient in the hospital. 3. Acute hypoxemic respiratory failure related to end-stage chronic obstructive pulmonary disease and advanced congestive heart failure. That is the reason why she is on hospice. 4. We will continue providing oxygen supplementation. 5. History of congestive heart failure. We will continue with her chronic home medications for this condition. 6. Atrial fibrillation. Rate is stable. Continue with the same management. 7. Chronic obstructive pulmonary disease. Patient is not in an exacerbation, although we know that she requires a high amount of oxygen while she is in the hospital. 8. Physical deconditioning. Physical Therapy is working with this patient. Overall, this patient is stable. We know that this patient requires a lot of oxygen, so this time we are trying to send her to a placement, either rehabilitation or a fdc, because, as per daughters, they are not able to take care of her. cc: Noah Villeda MD
[2016-07-06] MEDS: MELATONIN PO SCH (21:43)
[2016-07-06] MEDS: LEXAPRO PO SCH (21:43)
[2016-07-07] MEDS: ZOSYN 3.375 GM/NS 3.375 GM/50 ML IVPB IV SCH ×4 (03:43→21:19)
[2016-07-07] MEDS: NS 1,000 ML IV SCH ×2 (03:45→21:09)
[2016-07-07] MEDS: DUONEB (A & A) INH SCH ×6 (04:03→23:25)
[2016-07-07] MEDS: PRILOSEC PO SCH (06:11)
[2016-07-07 06:33] LABS: MANUAL DIFF NEEDED? NO
[2016-07-07 06:35] LABS: BASO% 0.7 % (0.0-0.8); EOS# 0.27 X1000 (0.0-0.7); EOS% 3.3 % (0.0-10.0); HEMATOCRIT 33.8 % (37.0-47.0); HEMOGLOBIN 9.9 g/dL (12.0-16.0); LYMPH# 1.25 X1000 (1.2-3.4); LYMPH% 15.3 % (20.5-51.1); MCH 26.5 PG (27-31); MCHC 29.3 g/dL (33-37); MCV 90.6 FL (81-99); MONO# 1.09 X1000 (0.11-0.59); MONO% 13.3 % (1.7-9.3); MPV 11.5 FL (7.4-10.4); NEUT% 67.4 % (42.2-75.2); PLT 189 X1000 (130-400); RBC 3.73 XMIL (4.2-5.4)
[2016-07-07 06:53] LABS: POTASSIUM 3.7 mmol/L (3.5-5.1); TOTAL BILIRUBIN 0.52 mg/dL (0.20-1.00); TOTAL PROTEIN 6.1 g/dL (6.3-8.3)
[2016-07-07] MEDS ORDERED: INSULIN PEN NEEDLES ONE (07:40)
[2016-07-07] MEDS: ADVAIR 250/50 DISKUS INH SCH ×2 (07:45→19:20)
[2016-07-07] MEDS: ALDACTONE PO SCH ×2 (09:16→21:19)
[2016-07-07] MEDS: PHOSLO PO SCH ×3 (09:16→16:12)
[2016-07-07] MEDS: LOPRESSOR PO SCH ×2 (09:16→21:15)
[2016-07-07] MEDS: THERA M PLUS PO SCH (09:16)
[2016-07-07] MEDS: LANOXIN PO SCH (09:16)
[2016-07-07] MEDS: PLAVIX PO SCH (09:16)
[2016-07-07] MEDS: SUBOXONE 8 MG/2 MG SL SCH ×2 (09:16→21:18)
[2016-07-07] MEDS: LOVENOX SUBQ SCH (09:16)
[2016-07-07] MEDS: MIRALAX PO SCH (09:16)
[2016-07-07] MEDS: NICODERM PATCH TD SCH (09:16)
[2016-07-07] MEDS: LANTUS SUBQ SCH (09:17)
[2016-07-07] MEDS: XANAX PO PRN ×2 (09:27→21:18)
--- NOTE | 2016-07-07 15:28 | PROGRESS NOTE ---
DATE: 07/07/2016 SUBJECTIVE: Patient reports feeling better. No pain reported. OBJECTIVE: Vital Signs: Temperature 97.7 degrees, heart rate 62, respiratory rate 17, blood pressure 102/84, O2 saturation 98% on Venturi mask 15 L/minute. General Examination: This is a chronically ill-looking frail, looking older than her age, 55-year-old female lying in bed, in no acute distress. HEENT: Head is normocephalic, atraumatic. Anicteric sclerae and pale conjunctivae. Mucous membranes moist. Neck: Supple. No JVD noted. No carotid bruits. No lymphadenopathy. No thyromegaly. Cardiovascular: S1, S2 heard. No murmurs, gallops, or rubs. Regular rate and rhythm. Respiratory: Clear bilaterally to auscultation. No work of breathing or using accessory muscles. Decreased breath sounds globally. Patient is not using any accessory muscles or having work of breathing. Abdomen: Soft, nontender to palpation. Bowel sounds present. No organomegaly. Extremities: No clubbing, cyanosis, or edema. Peripheral pulses present in both legs. Neurological: Patient alert and oriented x3. Able to move her extremities. Cranial nerves 2-12 grossly normal. LABORATORY DATA: reviewed. ASSESSMENT AND PLAN: 1. Toxic encephalopathy secondary to volume overdose, resolved. 2. Syncope. No more episodes of syncope while this patient is here. Acute hypoxemic respiratory failure related to end-stage chronic obstructive pulmonary disease and congestive heart failure. That is the reason why she is on hospice requiring high amount of oxygen. At this point, we are going to continue with oxygen supplementation. 3. History of congestive heart failure. We will continue with chronic home medications. 4. Atrial fibrillation. Rate is controlled. We will continue with the same management. 5. Chronic obstructive pulmonary disease. Patient is not in exacerbation, but her baseline unfortunately requires her to receive oxygen via Venturi mask. 6. Physical deconditioning. Physical therapy working with this patient. 7. Overall, this patient is stable and we are awaiting for social media strategist to see where we can send this patient because of her condition and because she lives by herself. She is not able to go back home with hospice, so we need to find a place to send her. cc: Noah Villeda MD
[2016-07-07] MEDS: LEXAPRO PO SCH (21:18)
[2016-07-07] MEDS: MELATONIN PO SCH (21:19)
[2016-07-08] MEDS: DUONEB (A & A) INH SCH ×6 (03:29→23:00)
[2016-07-08] MEDS: NS 1,000 ML IV SCH ×2 (03:34→16:44)
[2016-07-08] MEDS: ZOSYN 3.375 GM/NS 3.375 GM/50 ML IVPB IV SCH ×4 (03:51→21:05)
[2016-07-08] MEDS: PRILOSEC PO SCH (06:27)
[2016-07-08 07:00] LABS: MANUAL DIFF NEEDED? NO
[2016-07-08 07:10] LABS: BASO% 0.6 % (0.0-0.8); EOS# 0.28 X1000 (0.0-0.7); EOS% 3.3 % (0.0-10.0); HEMATOCRIT 33.2 % (37.0-47.0); HEMOGLOBIN 9.8 g/dL (12.0-16.0); IMM GRAN# 0.02 X1000 (0.0-0.04); IMM GRAN% 0.2 % (0.0-0.5); LYMPH# 1.48 X1000 (1.2-3.4); LYMPH% 17.4 % (20.5-51.1); MCH 26.6 PG (27-31); MCHC 29.5 g/dL (33-37); MCV 90.2 FL (81-99); MONO# 0.91 X1000 (0.11-0.59); MONO% 10.7 % (1.7-9.3); MPV 11.8 FL (7.4-10.4); NEUT% 67.8 % (42.2-75.2); PLT 184 X1000 (130-400); RBC 3.68 XMIL (4.2-5.4)
[2016-07-08 07:35] LABS: ALBUMIN 3.1 g/dL (3.5-5.0); CALCIUM 8.7 mg/dL (8.8-10.2); POTASSIUM 3.9 mmol/L (3.5-5.1); TOTAL BILIRUBIN 0.58 mg/dL (0.20-1.00); TOTAL PROTEIN 6.3 g/dL (6.3-8.3)
[2016-07-08] MEDS: ADVAIR 250/50 DISKUS INH SCH ×2 (08:00→19:54)
[2016-07-08] MEDS: XANAX PO PRN ×2 (08:22→21:06)
[2016-07-08] MEDS: LOPRESSOR PO SCH ×2 (08:23→21:06)
[2016-07-08] MEDS: PHOSLO PO SCH ×3 (08:23→16:36)
[2016-07-08] MEDS: LANOXIN PO SCH (08:23)
[2016-07-08] MEDS: THERA M PLUS PO SCH (08:23)
[2016-07-08] MEDS: PLAVIX PO SCH (08:25)
[2016-07-08] MEDS: SUBOXONE 8 MG/2 MG SL SCH ×2 (08:39→21:07)
[2016-07-08] MEDS: ALDACTONE PO SCH ×2 (08:40→21:07)
[2016-07-08] MEDS: LOVENOX SUBQ SCH (08:40)
[2016-07-08] MEDS: MIRALAX PO SCH (08:41)
[2016-07-08] MEDS: LANTUS SUBQ SCH (08:41)
[2016-07-08] MEDS: NICODERM PATCH TD SCH (08:42)
[2016-07-08] MEDS ORDERED: BUSPAR PO SCH (13:30)
--- NOTE | 2016-07-08 14:14 | PROGRESS NOTE ---
DATE: 07/08/2016 SUBJECTIVE: Patient reports feeling fine. Reports feeling anxious. No pain reported. OBJECTIVE: Vital Signs: Temperature 97.6 degrees, heart rate 82, respiratory rate 21, blood pressure 107/63, O2 saturation 95% on Venturi mask 15 L. General Examination: This is a chronically ill-looking, frail, and looking older than age, 55-year-old female lying in bed, in no acute distress. HEENT: Head is normocephalic, atraumatic. Anicteric sclerae and pale conjunctivae. Mucous membranes moist with Venturi mask. Neck: Supple. No JVD noted. No carotid bruits. No lymphadenopathy. No thyromegaly. Cardiovascular: S1, S2 heard. No murmurs, gallops, or rubs. Regular rate and rhythm. Respiratory: Clear bilaterally to auscultation. No work of breathing or using accessory muscles. Abdomen: Soft. Nontender to palpation. Bowel sounds present. No organomegaly. Extremities: No clubbing, cyanosis, or edema. Peripheral pulses present in both legs. Neurological: Patient alert oriented x3. Moves 4 extremities. LABORATORY DATA: Reviewed. ASSESSMENT AND PLAN: 1. Toxic encephalopathy secondary to drug overdose. That condition has resolved. 2. Syncope. No more episodes of syncope while this patient has been here. 3. Acute hypoxemic respiratory failure secondary to end-stage chronic obstructive pulmonary disease and congestive heart failure. That is the reason why she is on hospice and now requiring high amounts of oxygen. She is on Venturi mask at 15 L/minute and if we try 6 or 7 L by nasal cannula she desaturates to the 60s and 70s. 4. Atrial fibrillation. Rate controlled. We will continue with the same management. 5. Chronic obstructive pulmonary disease, not in exacerbation. We will continue with inhalers and home medications. 6. Physical deconditioning. Physical therapy is working with this patient. 7. The patient was admitted to the hospital for an episode of drug overdose. Apparently, she took like 20 tablets of Ativan but now she is feeling fine. The problem is placement because this patient was sent home with hospice and she was brought here 3 days after. The problem is that no facility will take here with that high amount of oxygen needed and also her daughter said that she can take care of her. In any case, public health social worker has been involved and we will hopefully have a plan for her tomorrow. 8. History of congestive heart failure. We will continue home medications. cc: Noah Villeda MD
[2016-07-08] MEDS: BUSPAR PO SCH ×2 (14:20→18:01)
[2016-07-08] MEDS: LEXAPRO PO SCH (21:06)
[2016-07-08] MEDS: MELATONIN PO SCH (21:07)
[2016-07-09] MEDS: DUONEB (A & A) INH SCH ×6 (03:35→23:30)
[2016-07-09] MEDS: NS 1,000 ML IV SCH (04:13)
[2016-07-09] MEDS: ZOSYN 3.375 GM/NS 3.375 GM/50 ML IVPB IV SCH ×4 (04:38→21:32)
[2016-07-09] MEDS: PRILOSEC PO SCH (06:08)
[2016-07-09 06:33] LABS: MANUAL DIFF NEEDED? NO
[2016-07-09 06:58] LABS: ALBUMIN 3.1 g/dL (3.5-5.0); CALCIUM 9.2 mg/dL (8.8-10.2); POTASSIUM 4.1 mmol/L (3.5-5.1); TOTAL BILIRUBIN 0.51 mg/dL (0.20-1.00); TOTAL PROTEIN 6.2 g/dL (6.3-8.3)
[2016-07-09 07:00] LABS: BASO% 0.4 % (0.0-0.8); EOS% 3.3 % (0.0-10.0); HEMATOCRIT 33.1 % (37.0-47.0); HEMOGLOBIN 9.7 g/dL (12.0-16.0); IMM GRAN# 0.02 X1000 (0.0-0.04); IMM GRAN% 0.2 % (0.0-0.5); LYMPH# 1.01 X1000 (1.2-3.4); LYMPH% 11.2 % (20.5-51.1); MCH 26.4 PG (27-31); MCHC 29.3 g/dL (33-37); MCV 90.2 FL (81-99); MONO% 11.1 % (1.7-9.3); NEUT% 73.8 % (42.2-75.2); PLT 189 X1000 (130-400); RBC 3.67 XMIL (4.2-5.4)
[2016-07-09] MEDS: ADVAIR 250/50 DISKUS INH SCH ×2 (07:45→19:40)
[2016-07-09] MEDS: LANOXIN PO SCH (09:07)
[2016-07-09] MEDS: THERA M PLUS PO SCH (09:07)
[2016-07-09] MEDS: BUSPAR PO SCH ×3 (09:07→17:09)
[2016-07-09] MEDS: LOPRESSOR PO SCH ×2 (09:08→21:32)
[2016-07-09] MEDS: ALDACTONE PO SCH ×2 (09:08→21:33)
[2016-07-09] MEDS: MIRALAX PO SCH (09:09)
[2016-07-09] MEDS: PLAVIX PO SCH (09:09)
[2016-07-09] MEDS: PHOSLO PO SCH ×3 (09:09→17:09)
[2016-07-09] MEDS: LOVENOX SUBQ SCH (09:09)
[2016-07-09] MEDS: NICODERM PATCH TD SCH (09:09)
[2016-07-09] MEDS: SUBOXONE 8 MG/2 MG SL SCH ×2 (09:09→21:33)
[2016-07-09] MEDS: LANTUS SUBQ SCH (09:10)
[2016-07-09] MEDS: XANAX PO PRN ×2 (09:13→23:00)
--- NOTE | 2016-07-09 12:57 | PROGRESS NOTE ---
DATE: 07/09/2016 SUBJECTIVE: This patient states that she is feeling better. As per the patient, she has been having trouble sleeping. She feels anxiety and lower extremity edema. OBJECTIVE: Vital Signs: Temperature 97.2 degrees, pulse 60, respiratory rate 18, blood pressure 109/82, oxygen saturation 94% on 15 L of oxygen on a Venturi mask. HEENT: Head normocephalic. No trauma. PERRLA. Neck: Supple. No JVD. No masses. Central trachea. Chest: Decreased breath sounds globally. Prolonged expiratory phase. No wheezing. Coarse breath sounds bilaterally. Abdomen: Soft, nontender, nondistended. Extremities: There is 2 to 3+ lower extremity edema. She has a right foot lesion/ulcer at the level of the dorsal foot area. Neurological Examination: The patient is alert and oriented x3. No focal neurological deficits. Laboratory Data: WBC 9, hemoglobin 9.7, hematocrit 33.1, platelets 189,000. Sodium 142, potassium 4.1, chloride 102, bicarbonate 25, BUN 27, creatinine 1.1, glucose 134, calcium 9.2. Albumin 3.1. ASSESSMENT AND PLAN: 1. Toxic metabolic encephalopathy, likely secondary to drug overdose, resolved. 2. Syncope. No more episodes of syncope inhouse. 3. Acute hypoxemic and hypercapnic respiratory failure, likely secondary to end-stage chronic obstructive pulmonary disease. Continue with the same management. She is requiring high amount of oxygen to be able to keep the oxygen saturation between 88 and 92. 4. End-stage chronic obstructive pulmonary disease, aware. Apparently, this patient has been in hospice before. I am not quite sure why this patient came back to the hospital. I will talk to the family members once they are available. 5. Atrial fibrillation, rate controlled. Continue with the same management. 6. Physical deconditioning. Continue with physical therapy. 7. History of congestive heart failure. Continue with home medications. 8. Right foot ulcer. I will consult wound care. cc: Dwight Garcia MD
[2016-07-09] MEDS: MELATONIN PO SCH (21:32)
[2016-07-09] MEDS: LEXAPRO PO SCH (21:32)
[2016-07-10] MEDS: NS 1,000 ML IV SCH (01:04)
[2016-07-10] MEDS: DUONEB (A & A) INH SCH ×6 (03:45→23:15)
[2016-07-10] MEDS: ZOSYN 3.375 GM/NS 3.375 GM/50 ML IVPB IV SCH ×4 (05:01→21:18)
[2016-07-10] MEDS: PRILOSEC PO SCH (05:59)
[2016-07-10 06:35] LABS: MANUAL DIFF NEEDED? NO
[2016-07-10 06:42] LABS: BASO% 1.2 % (0.0-0.8); EOS# 0.24 X1000 (0.0-0.7); EOS% 2.8 % (0.0-10.0); HEMATOCRIT 34.9 % (37.0-47.0); HEMOGLOBIN 10.2 g/dL (12.0-16.0); LYMPH# 1.63 X1000 (1.2-3.4); LYMPH% 19.2 % (20.5-51.1); MCH 26.1 PG (27-31); MCHC 29.2 g/dL (33-37); MCV 89.3 FL (81-99); MONO# 1.24 X1000 (0.11-0.59); MONO% 14.6 % (1.7-9.3); MPV 11.9 FL (7.4-10.4); NEUT% 62.2 % (42.2-75.2); PLT 203 X1000 (130-400); RBC 3.91 XMIL (4.2-5.4)
[2016-07-10 06:59] LABS: ALBUMIN 3.3 g/dL (3.5-5.0); CALCIUM 9.2 mg/dL (8.8-10.2); TOTAL BILIRUBIN 0.66 mg/dL (0.20-1.00); TOTAL PROTEIN 6.5 g/dL (6.3-8.3)
[2016-07-10] MEDS: ADVAIR 250/50 DISKUS INH SCH ×2 (07:38→19:28)
[2016-07-10] MEDS: PHOSLO PO SCH ×3 (08:15→16:59)
[2016-07-10] MEDS: LOVENOX SUBQ SCH (08:17)
[2016-07-10] MEDS: NICODERM PATCH TD SCH (09:34)
[2016-07-10] MEDS: SUBOXONE 8 MG/2 MG SL SCH ×2 (09:35→21:24)
[2016-07-10] MEDS: MIRALAX PO SCH (09:35)
[2016-07-10] MEDS: LOPRESSOR PO SCH ×2 (09:37→21:17)
[2016-07-10] MEDS: THERA M PLUS PO SCH (09:37)
[2016-07-10] MEDS: BUSPAR PO SCH ×3 (09:37→16:59)
[2016-07-10] MEDS: PLAVIX PO SCH (09:37)
[2016-07-10] MEDS: LANTUS SUBQ SCH (09:38)
[2016-07-10] MEDS: LANOXIN PO SCH (09:38)
[2016-07-10] MEDS: ALDACTONE PO SCH ×2 (09:38→21:17)
[2016-07-10] MEDS: ZOFRAN IV PRN ×3 (11:15→21:26)
--- NOTE | 2016-07-10 16:16 | PROGRESS NOTE ---
DATE: 07/10/2016 SUBJECTIVE: This patient is feeling about the same. I will try today to start decreasing her oxygen supply. Once this patient is using 10L or less, we are going to be able to send her to a rehabilitation center. This was discussed with the patient and she agreed with that. Also, we discussed the possibility of hospice. She states that she was with hospice before, but now she wants to try another company. Hopefully, after the rehabilitation, she can be discharged to hospice. production manufacturing worker has been notified. OBJECTIVE: Vital Signs: Temperature 97.9 degrees, pulse 61, respiratory rate 18, blood pressure 116/71, oxygen saturation 98% on 15L of Venturi mask. HEENT: Head normocephalic. No trauma. PERRLA. Neck: Supple. No JVD. No masses. Central trachea. Chest: Decreased breath sounds globally. Prolonged expiratory phase. No wheezing. Coarse breath sounds globally. Abdomen: Soft, nontender, nondistended. Extremities: There is 3+ lower extremity edema. She has a right foot lesion/ulcer at the level of the dorsal foot area. Neurological: This patient is alert. She is oriented x3. No focal deficits. LABORATORY: WBC 8.5, hemoglobin 10.2, hematocrit 34.9, platelets 203,000. Sodium 141, potassium 4, chloride 103, bicarbonate 25, BUN 29, creatinine 1.3, glucose 52, calcium 9.2, albumin 3.3. ASSESSMENT AND PLAN: 1. Toxic metabolic encephalopathy. Resolved. 2. Syncope. No more episodes of syncope in-house. 3. Acute hypoxemic and hypercapnic respiratory failure, likely secondary to end-stage chronic obstructive pulmonary disease. Continue with the same management. She is requiring a high amount of oxygen to be able to keep the oxygen saturation stable. I already asked the nurse to wean down the oxygen so she can be transferred to a rehabilitation center or hospice. 4. End-stage chronic obstructive pulmonary disease. Aware. This patient has been on hospice before and apparently she wants to try home hospice after rehabilitation center. No family members at the bedside. 5. Atrial fibrillation. Rate controlled. Continue with the same management. 6. Physical deconditioning. Continue with physical therapy. 7. Right foot ulcer. Continue with wound care. 8. History of congestive heart failure. Continue with home medications. cc: Dwight Garcia MD
[2016-07-10] MEDS: LASIX IV SCH (17:02)
[2016-07-10] MEDS: MELATONIN PO SCH (21:17)
[2016-07-10] MEDS: LEXAPRO PO SCH (21:17)
[2016-07-11] MEDS: DUONEB (A & A) INH SCH ×6 (03:05→22:55)
[2016-07-11] MEDS: ZOSYN 3.375 GM/NS 3.375 GM/50 ML IVPB IV SCH ×4 (03:38→22:02)
[2016-07-11] MEDS: LASIX IV SCH (03:38)
[2016-07-11] MEDS: XANAX PO PRN (04:00)
[2016-07-11] MEDS: PRILOSEC PO SCH (06:04)
[2016-07-11 06:13] LABS: MANUAL DIFF NEEDED? NO
[2016-07-11 06:16] LABS: BASO% 0.9 % (0.0-0.8); EOS# 0.22 X1000 (0.0-0.7); EOS% 2.5 % (0.0-10.0); HEMATOCRIT 33.9 % (37.0-47.0); LYMPH# 1.77 X1000 (1.2-3.4); LYMPH% 20.3 % (20.5-51.1); MCH 26.3 PG (27-31); MCHC 29.5 g/dL (33-37); MCV 89.2 FL (81-99); MONO# 1.16 X1000 (0.11-0.59); MONO% 13.3 % (1.7-9.3); PLT 193 X1000 (130-400)
[2016-07-11 06:50] LABS: CALCIUM 9.1 mg/dL (8.8-10.2); POTASSIUM 4.3 mmol/L (3.5-5.1)
[2016-07-11] MEDS: MIRALAX PO SCH (08:02)
[2016-07-11] MEDS: BUSPAR PO SCH ×3 (08:03→18:45)
[2016-07-11] MEDS: PLAVIX PO SCH (08:03)
[2016-07-11] MEDS: NICODERM PATCH TD SCH (08:03)
[2016-07-11] MEDS: PHOSLO PO SCH ×3 (08:03→18:45)
[2016-07-11] MEDS: THERA M PLUS PO SCH (08:04)
[2016-07-11] MEDS: LOVENOX SUBQ SCH (08:05)
[2016-07-11] MEDS: ALDACTONE PO SCH ×2 (08:05→22:01)
[2016-07-11] MEDS: LOPRESSOR PO SCH ×4 (08:05→22:04)
[2016-07-11] MEDS: LANTUS SUBQ SCH (08:06)
[2016-07-11] MEDS: SUBOXONE 8 MG/2 MG SL SCH ×2 (08:39→22:02)
[2016-07-11] MEDS: ADVAIR 250/50 DISKUS INH SCH ×2 (08:51→19:17)
[2016-07-11] MEDS: LANOXIN PO SCH (10:47)
[2016-07-11] MEDS: ZOFRAN IV PRN ×2 (11:51→22:02)
--- NOTE | 2016-07-11 14:58 | PROGRESS NOTE ---
DATE: 07/11/2016 SUBJECTIVE: This patient is feeling about the same. The oxygen saturation has been stable with 5L nasal cannula. I have been discussing with the patient about the possibility of transferring this patient to a rehabilitation center, and she agreed with this. Also, we discussed the possibility of hospice and she stated that she was in hospice already, but now she wants to try another company after being discharged from rehabilitation. The social welfare research worker is on board. OBJECTIVE: Vital Signs: Temperature 97.7 degrees, pulse 59, respiratory rate 15, blood pressure 112/62, and oxygen saturation 96% on 5L nasal cannula. HEENT: Head normocephalic. No trauma. PERRLA. Neck: Supple. No JVD. No masses. Central trachea. Chest: Decreased breath sounds globally. Prolonged expiratory phase. No wheezing. Coarse breath sounds globally. Abdomen: Soft, nontender, nondistended. Obese. Extremities: 3+ lower extremity edema. She has right foot ulcer/lesion at the level of the dorsal foot area. Neurologic: The patient is alert and oriented x3. No focal neurological deficits. LABORATORY: WBC 8.7, hemoglobin 10, hematocrit 33.9, platelets 193,000. Sodium 138, potassium 4.3, chloride 101, bicarbonate 24, BUN 34, creatinine 1.7, glucose 92, calcium 9.1. ASSESSMENT AND PLAN: 1. Toxic metabolic encephalopathy. Resolved. 2. Syncope. Resolved. 3. Acute hypoxemic and hypercapnic respiratory failure likely secondary to end-stage chronic obstructive pulmonary disease. Continue with the same management. She is requiring at this moment 5L of oxygen to keep the oxygen saturation stable. We will continue to monitor. Probably, this patient should be discharged to a rehabilitation center or hospice. 4. End-stage chronic obstructive pulmonary disease. Continue with the same management. 5. Atrial fibrillation, rate controlled. I stopped the beta angelita today because the blood pressure and heart rate were slow, but I will continue with this in the afternoon. 6. Physical deconditioning. Continue with physical therapy. 7. Right foot ulcer. Continue with wound care. 8. History of congestive heart failure. Continue with home medications, but I will decrease the amount of Lasix from 40 IV b.i.d. to 40 daily because the creatinine is going up. 9. Chronic kidney disease. The creatinine is around her baseline. We will continue to monitor. cc: Dwight Garcia MD
[2016-07-11] MEDS ORDERED: NS 250 ML ONE (17:20)
[2016-07-11] MEDS: LEXAPRO PO SCH (22:01)
[2016-07-11] MEDS: MELATONIN PO SCH (22:01)
[2016-07-12] MEDS: DUONEB (A & A) INH SCH ×6 (03:49→22:51)
[2016-07-12] MEDS: ZOSYN 3.375 GM/NS 3.375 GM/50 ML IVPB IV SCH ×4 (05:00→22:26)
[2016-07-12] MEDS: PRILOSEC PO SCH (06:33)
[2016-07-12] MEDS ORDERED: INSULIN PEN NEEDLES ONE (07:58)
[2016-07-12] MEDS: SUBOXONE 8 MG/2 MG SL SCH ×2 (08:13→22:24)
[2016-07-12] MEDS: MIRALAX PO SCH (08:13)
[2016-07-12] MEDS: BUSPAR PO SCH ×3 (08:14→16:39)
[2016-07-12] MEDS: THERA M PLUS PO SCH (08:14)
[2016-07-12] MEDS: ALDACTONE PO SCH ×2 (08:14→22:25)
[2016-07-12] MEDS: LOPRESSOR PO SCH ×2 (08:14→22:25)
[2016-07-12] MEDS: PHOSLO PO SCH ×3 (08:14→16:39)
[2016-07-12] MEDS: PLAVIX PO SCH (08:15)
[2016-07-12] MEDS: LASIX IV SCH (08:15)
[2016-07-12] MEDS: ADVAIR 250/50 DISKUS INH SCH ×2 (08:15→19:11)
[2016-07-12] MEDS: LANOXIN PO SCH (08:15)
[2016-07-12] MEDS: LOVENOX SUBQ SCH (08:16)
[2016-07-12] MEDS: LANTUS SUBQ SCH (08:17)
[2016-07-12] MEDS: NICODERM PATCH TD SCH (08:18)
[2016-07-12] MEDS: ZOFRAN IV PRN (10:23)
[2016-07-12] MEDS ORDERED: TYLENOL PO ONE (14:42)
[2016-07-12] MEDS: XANAX PO PRN (14:54)
--- NOTE | 2016-07-12 15:31 | PROGRESS NOTE ---
DATE: 07/12/2016 SUBJECTIVE: This patient is feeling a little bit better. She tried to stand up today and she fell and she is complaining of left thigh pain. I will give her Tylenol for this. The oxygen saturation has been acceptable and she is getting 4 L of oxygen. OBJECTIVE: Vital Signs: Temperature 97.5 degrees, pulse 54, respiratory rate 18, blood pressure 105/90, O2 saturation 97 on 4 L of nasal cannula. HEENT: Head normocephalic. No trauma. PERRLA. Neck: Supple. No JVD. No masses. Central trachea. Chest: Decreased breath sounds globally. Prolonged expiatory phase. No wheezing. Coarse breath sounds globally. Abdomen: Soft, nontender, nondistended. Obese. Extremities: 3+ lower extremity edema. She has right foot ulcer/lesion at the level of the dorsal foot area. Neurological: The patient is alert and oriented x3. No focal neurological deficits. LABORATORY: Glucose 100. ASSESSMENT AND PLAN: 1. Toxic metabolic encephalopathy. Resolved. 2. Syncope. Resolved. 3. Acute hypoxemic and hypercapnic respiratory failure likely secondary to end-stage chronic obstructive pulmonary disease exacerbation. Continue with the same management. She is requiring at this moment 4 L of oxygen to keep the oxygen saturation stable. Will continue to monitor. This patient will be discharged to a rehab center hopefully on Friday. 4. End-stage chronic obstructive pulmonary disease. Continue with the same management. 5. Atrial fibrillation. Rate controlled. Continue with the same management. 6. Physical deconditioning. Continue with physical therapy. 7. Right foot ulcer. Continue with wound care. 8. History of congestive heart failure. Continue with home medication. 9. Chronic kidney disease. Continue to monitor. 10. Left thigh pain status post fall. I will treat this patient with Tylenol, no evidence of edema or deformity. cc: Dwight Garcia MD
[2016-07-12] MEDS: LEXAPRO PO SCH (22:25)
[2016-07-12] MEDS: MELATONIN PO SCH (22:25)
[2016-07-13] MEDS: XANAX PO PRN ×3 (01:47→19:05)
[2016-07-13] MEDS: ZOSYN 3.375 GM/NS 3.375 GM/50 ML IVPB IV SCH ×4 (03:35→22:04)
[2016-07-13] MEDS: DUONEB (A & A) INH SCH ×6 (03:42→22:50)
[2016-07-13] MEDS: PRILOSEC PO SCH (06:07)
[2016-07-13 06:36] LABS: MANUAL DIFF NEEDED? NO
[2016-07-13 06:52] LABS: BASO% 0.8 % (0.0-0.8); EOS# 0.16 X1000 (0.0-0.7); EOS% 1.5 % (0.0-10.0); HEMATOCRIT 32.4 % (37.0-47.0); HEMOGLOBIN 9.7 g/dL (12.0-16.0); IMM GRAN# 0.02 X1000 (0.0-0.04); IMM GRAN% 0.2 % (0.0-0.5); LYMPH# 1.83 X1000 (1.2-3.4); LYMPH% 17.1 % (20.5-51.1); MCH 26.3 PG (27-31); MCHC 29.9 g/dL (33-37); MCV 87.8 FL (81-99); MONO# 1.69 X1000 (0.11-0.59); MONO% 15.8 % (1.7-9.3); MPV 12.2 FL (7.4-10.4); NEUT% 64.6 % (42.2-75.2); PLT 191 X1000 (130-400); RBC 3.69 XMIL (4.2-5.4)
[2016-07-13 07:15] LABS: CALCIUM 9.3 mg/dL (8.8-10.2); POTASSIUM 4.3 mmol/L (3.5-5.1)
[2016-07-13] MEDS: ADVAIR 250/50 DISKUS INH SCH ×2 (07:43→18:59)
[2016-07-13] MEDS: PLAVIX PO SCH (09:07)
[2016-07-13] MEDS: THERA M PLUS PO SCH (09:07)
[2016-07-13] MEDS: PHOSLO PO SCH ×3 (09:08→17:49)
[2016-07-13] MEDS: BUSPAR PO SCH ×3 (09:08→17:48)
[2016-07-13] MEDS: LANOXIN PO SCH (09:08)
[2016-07-13] MEDS: LOPRESSOR PO SCH ×2 (09:08→22:04)
[2016-07-13] MEDS: SUBOXONE 8 MG/2 MG SL SCH ×2 (09:09→22:04)
[2016-07-13] MEDS: NICODERM PATCH TD SCH (09:09)
[2016-07-13] MEDS: LOVENOX SUBQ SCH (09:09)
[2016-07-13] MEDS: LANTUS SUBQ SCH (09:09)
[2016-07-13] MEDS: MIRALAX PO SCH (09:09)
[2016-07-13] MEDS: ALDACTONE PO SCH ×2 (09:09→22:04)
[2016-07-13] MEDS: LASIX IV SCH (09:09)
[2016-07-13] MEDS ORDERED: LASIX IV SCH (12:18)
[2016-07-13] MEDS: ZOFRAN IV PRN (15:30)
--- NOTE | 2016-07-13 15:50 | PROGRESS NOTE ---
DATE: 07/13/2016 SUBJECTIVE: This patient feels about the same. She is not complaining of shortness of breath at this moment. She is still complaining of left thigh pain and generalized weakness. The oxygen saturation has been stable. She is getting 4 L of oxygen. OBJECTIVE: Vital Signs: Temperature 98 degrees, pulse 77, respiratory rate 18, blood pressure 105/51, oxygen saturation 96 on 4 L of nasal cannula. HEENT: Head normocephalic. No trauma. PERRLA. Neck: Supple. No JVD. No masses. Central trachea. Chest: Decreased breath sounds globally. Prolonged expiratory phase. No wheezing. Coarse breath sounds mostly at the bases. Abdomen: Soft, nontender, nondistended. No hepatosplenomegaly. Obese. Extremities: 3+ lower extremity edema. She has right foot ulcer/lesion at the level of the dorsal foot area. Neurological: The patient is alert and oriented x3. No focal deficits. LABORATORY: WBC 10.7, hemoglobin 9.7, hematocrit 32.4, platelets 191,000. Sodium 140, potassium 4.3, chloride 102, bicarbonate 24, BUN 45, creatinine 2.2. Glucose 86. Calcium 9.3. ASSESSMENT AND PLAN: 1. Toxic metabolic encephalopathy. Resolved. 2. Syncope. Resolved. 3. Acute hypoxemic and hypercapnic respiratory failure secondary to end-stage chronic obstructive pulmonary disease exacerbation. Continue with the same management. She is requiring at this moment 4 L of oxygen to keep the oxygen saturation stable. We will continue to monitor. Patient will be discharged to a rehab center hopefully at the beginning of the next week. 4. End-stage COPD. Continue with the same treatment. 5. Atrial fibrillation. Rate controlled. Continue with the same management. 6. Acute on chronic kidney disease. I will decrease the dose of Lasix, we will monitor the in's and outs. 7. Physical deconditioning. Continue physical therapy. 8. Right foot ulcer. Continue with wound care. 9. History of CHF. Continue with home medication. 10. Left thigh pain status post fall. Continue with Tylenol. No evidence of edema or deformity. cc: Dwight Garcia MD
[2016-07-13] MEDS: LEXAPRO PO SCH (22:03)
[2016-07-13] MEDS: MELATONIN PO SCH (22:04)
[2016-07-14] MEDS: ZOFRAN IV PRN (00:37)
[2016-07-14] MEDS: DUONEB (A & A) INH SCH ×6 (03:39→22:31)
[2016-07-14] MEDS: ZOSYN 3.375 GM/NS 3.375 GM/50 ML IVPB IV SCH ×3 (04:09→16:56)
[2016-07-14] MEDS: XANAX PO PRN ×2 (04:37→08:11)
[2016-07-14] MEDS: PRILOSEC PO SCH (06:24)
[2016-07-14 06:55] LABS: MANUAL DIFF NEEDED? NO
[2016-07-14 07:05] LABS: BASO% 0.8 % (0.0-0.8); EOS# 0.17 X1000 (0.0-0.7); HEMATOCRIT 33.6 % (37.0-47.0); HEMOGLOBIN 9.8 g/dL (12.0-16.0); IMM GRAN# 0.02 X1000 (0.0-0.04); IMM GRAN% 0.2 % (0.0-0.5); LYMPH# 1.03 X1000 (1.2-3.4); LYMPH% 12.1 % (20.5-51.1); MCH 25.7 PG (27-31); MCHC 29.2 g/dL (33-37); MCV 88.2 FL (81-99); MONO# 0.99 X1000 (0.11-0.59); MONO% 11.6 % (1.7-9.3); MPV 12.3 FL (7.4-10.4); NEUT% 73.3 % (42.2-75.2); PLT 183 X1000 (130-400); RBC 3.81 XMIL (4.2-5.4)
[2016-07-14] MEDS: ADVAIR 250/50 DISKUS INH SCH ×2 (07:51→19:15)
[2016-07-14 07:56] LABS: CALCIUM 9.4 mg/dL (8.8-10.2); POTASSIUM 4.7 mmol/L (3.5-5.1)
[2016-07-14] MEDS: NICODERM PATCH TD SCH (08:11)
[2016-07-14] MEDS: PLAVIX PO SCH (08:11)
[2016-07-14] MEDS: ALDACTONE PO SCH ×2 (08:11→21:08)
[2016-07-14] MEDS: BUSPAR PO SCH ×3 (08:11→16:55)
[2016-07-14] MEDS: PHOSLO PO SCH ×3 (08:11→16:55)
[2016-07-14] MEDS: LANOXIN PO SCH (08:11)
[2016-07-14] MEDS: LOPRESSOR PO SCH ×2 (08:11→21:07)
[2016-07-14] MEDS: LANTUS SUBQ SCH (08:12)
[2016-07-14] MEDS: SUBOXONE 8 MG/2 MG SL SCH ×2 (08:12→21:08)
[2016-07-14] MEDS: LOVENOX SUBQ SCH (08:12)
[2016-07-14] MEDS: THERA M PLUS PO SCH (08:13)
[2016-07-14] MEDS: MIRALAX PO SCH (08:13)
[2016-07-14] MEDS: TYLENOL PO PRN ×3 (11:20→22:53)
--- NOTE | 2016-07-14 18:00 | PROGRESS NOTE ---
DATE: 07/14/2016 SUBJECTIVE: This patient states that she is feeling better. She has not complaining of shortness of breath at this moment. She is requiring 4 L of oxygen to keep the oxygen saturations stable. OBJECTIVE: Vital Signs: Temperature 97.9 degrees, pulse 61, respiratory rate 17, blood pressure 110/67, oxygen saturation 98% on 4 L of nasal cannula. HEENT: Head normocephalic. No trauma. PERRLA. Neck: Supple. No JVD. No masses. Central trachea. Chest: Decreased breath sounds globally. Prolonged expiatory phase. No wheezing. Coarse breath sounds mostly at the bases. Abdomen: Soft, nontender, nondistended. No hepatosplenomegaly. Obese. Extremities: There is 3+ lower extremity edema. She has a right foot ulcer/lesion at the level of the dorsal foot area. Neurological: The patient is alert and oriented x3. No focal deficits. LABORATORY: WBC 8.5, hemoglobin 9.8, hematocrit 33.6, platelet 183,000. Sodium 141, potassium 4.7, chloride 101, bicarbonate 26, BUN 45, creatinine 2, glucose 136, calcium 9.4. ASSESSMENT AND PLAN: 1. Toxic metabolic encephalopathy. Resolved. 2. Syncope. Resolved. 3. Acute hypoxic and hypercapnic respiratory failure secondary to end-stage chronic obstructive pulmonary disease. This patient is requiring just 4 L of oxygen to keep the saturation stable. Continue with breathing treatment. Pending placement. 4. End-stage chronic obstructive pulmonary disease. Continue with the same treatment. 5. Atrial fibrillation. Rate controlled. Continue with the same management. 6. Acute on chronic kidney disease. Continue with the same dose of Lasix. 7. Physical deconditioning. Continue physical therapy. 8. Right foot ulcer continue with wound care. 9. History of congestive heart failure. Continue with home medication. 10. Left thigh pain status post fall. Continue with Tylenol. No evidence of edema or deformity. cc: Dwight Garcia MD
[2016-07-14] MEDS: MELATONIN PO SCH (21:06)
[2016-07-14] MEDS: LEXAPRO PO SCH (21:07)
[2016-07-15] MEDS: XANAX PO PRN ×2 (01:57→11:20)
[2016-07-15] MEDS: DUONEB (A & A) INH SCH ×6 (03:27→23:15)
[2016-07-15] MEDS: PRILOSEC PO SCH (06:07)
[2016-07-15] MEDS: ADVAIR 250/50 DISKUS INH SCH ×2 (07:28→19:40)
[2016-07-15] MEDS: MIRALAX PO SCH ×2 (09:22→09:32)
[2016-07-15] MEDS: LOVENOX SUBQ SCH (09:25)
[2016-07-15] MEDS: PLAVIX PO SCH (09:25)
[2016-07-15] MEDS: LOPRESSOR PO SCH ×2 (09:25→22:05)
[2016-07-15] MEDS: LASIX PO SCH (09:25)
[2016-07-15] MEDS: ALDACTONE PO SCH ×2 (09:25→22:05)
[2016-07-15] MEDS: BUSPAR PO SCH ×3 (09:25→16:50)
[2016-07-15] MEDS: THERA M PLUS PO SCH (09:25)
[2016-07-15] MEDS: PHOSLO PO SCH ×3 (09:25→16:50)
[2016-07-15] MEDS: LANOXIN PO SCH (09:25)
[2016-07-15] MEDS: NICODERM PATCH TD SCH (09:25)
[2016-07-15] MEDS: SUBOXONE 8 MG/2 MG SL SCH ×2 (09:38→22:05)
[2016-07-15] MEDS: LANTUS SUBQ SCH (10:15)
[2016-07-15] MEDS: TYLENOL PO PRN ×2 (12:03→19:01)
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
[2016-07-15] MEDS: LEXAPRO PO SCH (22:05)
[2016-07-15] MEDS: MELATONIN PO SCH (22:05)
[2016-07-16] MEDS: ZOFRAN IV PRN (00:21)
[2016-07-16] MEDS: TYLENOL PO PRN (00:21)
[2016-07-16] MEDS ORDERED: ZOFRAN ODT PO PRN (00:45)
[2016-07-16] MEDS: DUONEB (A & A) INH SCH ×3 (03:10→11:13)
[2016-07-16] MEDS: PRILOSEC PO SCH (06:17)
[2016-07-16] MEDS: XANAX PO PRN (06:53)
[2016-07-16 07:29] VITALS: BP 131/87
[2016-07-16] MEDS: ADVAIR 250/50 DISKUS INH SCH (07:37)
[2016-07-16] MEDS: PHOSLO PO SCH ×2 (08:21→12:11)
[2016-07-16] MEDS: LOVENOX SUBQ SCH (08:21)
[2016-07-16] MEDS: ALDACTONE PO SCH (08:21)
[2016-07-16] MEDS: BUSPAR PO SCH ×2 (08:22→12:11)
[2016-07-16] MEDS: PLAVIX PO SCH (08:22)
[2016-07-16] MEDS: LANOXIN PO SCH (08:24)
[2016-07-16] MEDS: THERA M PLUS PO SCH (08:27)
[2016-07-16] MEDS: LASIX PO SCH (08:27)
[2016-07-16] MEDS: LANTUS SUBQ SCH (08:27)
[2016-07-16] MEDS: SUBOXONE 8 MG/2 MG SL SCH (08:28)
[2016-07-16] MEDS: MIRALAX PO SCH (08:28)
[2016-07-16] MEDS: LOPRESSOR PO SCH (08:30)
[2016-07-16] MEDS: NICODERM PATCH TD SCH (08:37)
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
== END 2016-07-16 14:38 | disposition hospice, inpatient (51) ==
LOC: ED 11:12 → ICU 15:24 → SUATTDRO 15:24 → 3N 07-05 15:08
PROVIDERS: ATTEND Internal Medicine

== ENCOUNTER 2016-09-03 21:28 | Inpatient (IN) ==
[2016-09-03 23:25] LABS: BASO% 0.3 % (0.0-0.8); EOS# 0.06 X1000 (0.0-0.7); EOS% 0.6 % (0.0-10.0); HEMATOCRIT 37.2 % (37.0-47.0); HEMOGLOBIN 10.9 g/dL (12.0-16.0); IMM GRAN# 0.02 X1000 (0.0-0.04); IMM GRAN% 0.2 % (0.0-0.5); LYMPH% 16.3 % (20.5-51.1); MANUAL DIFF NEEDED? NO; MCH 23.1 PG (27-31); MCHC 29.3 g/dL (33-37); MONO# 1.09 X1000 (0.11-0.59); MONO% 11.1 % (1.7-9.3); NEUT% 71.5 % (42.2-75.2); PLT 183 X1000 (130-400); RBC 4.71 XMIL (4.2-5.4)
[2016-09-03 23:51] LABS: CALCIUM 8.8 mg/dL (8.8-10.2); POTASSIUM 4.9 mmol/L (3.5-5.1); TOTAL BILIRUBIN 0.58 mg/dL (0.20-1.00); TOTAL PROTEIN 6.8 g/dL (6.3-8.3)
[2016-09-04] MEDS ORDERED: PERCOCET-5 PO ONE (00:39)
[2016-09-04] MEDS ORDERED: SALINE LOCK IV FLUID XX ONE (00:40)
[2016-09-04] MEDS ORDERED: VANCOMYCIN 1 GM/NS 1 GM/250 ML IVPB IV ONE (00:41)
[2016-09-04] MEDS ORDERED: ZOSYN 3.375 GM/NS 3.375 GM/50 ML IVPB IV ONE (00:41)
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
[2016-09-04] MEDS ORDERED: ZOFRAN IV PRN (02:45)
[2016-09-04] MEDS ORDERED: VANCOMYCIN IV PER PHARMACY MISC SCH (02:45)
[2016-09-04] MEDS: MORPHINE IV PRN ×4 (03:06→18:11)
[2016-09-04] MEDS: XANAX PO PRN ×2 (03:44→20:52)
[2016-09-04] MEDS: NS 1,000 ML IV SCH (05:16)
--- NOTE | 2016-09-04 06:04 | HISTORY AND PHYSICAL ---
PRIMARY CARE PROVIDER: None. CHIEF COMPLAINT: Lower extremity sores. HISTORY OF PRESENT ILLNESS: Ms. Silva is a 55-year-old female, who was last admitted to our service on 07/04/2016. She has a past medical history that includes congestive heart failure, atrial fibrillation, diabetes mellitus type 2, myocardial infarction with stenting, higher chronic kidney disease stage 3, depression and anxiety. She was discharged on her last admission to [facility]. States she has been home for roughly 2 weeks. She apparently had lower extremity ulcerations that were being treated with an Unna boot. These have apparently progressively gotten worse. So, she came into the emergency room. She was noted to have bilateral lower extremity ulcerations with purulent drainage. Wound cultures are pending. She was given vancomycin and Zosyn and will be admitted for further evaluation and treatment. PAST MEDICAL HISTORY: Anxiety, depression, diabetes mellitus type 2, coronary artery disease with multiple myocardial infarction, status post stenting, atrial fibrillation, COPD but continues to use tobacco products, chronic pain syndrome, chronic kidney disease stage 3, congestive heart failure with an ejection fraction of 45%, hypertension, lower extremity cellulitis, history of ovarian cancer. PREVIOUS SURGICAL HISTORY: Cardiac stenting, hypertension, cholecystectomy, skin graft to the right upper arm, back fusion x2, pacemaker and pacemaker replacement. SOCIAL HISTORY: Lives at home. Was in [facility]. Has been home for roughly 2 weeks. Was a 1-2 pack per day smoker. Has apparently recently cut down on her smoking. Denies alcohol or illicit substance abuse. Was on Suboxone for chronic back pain. However, she states she has not been to a doctor and has not been on medication. HOME MEDICATIONS: A list has not been reconciled. As noted above, the patient states she has been out of medications and does not have a medical provider. FAMILY HISTORY: Mother, diabetes and colon cancer. Father, diabetes and prostate cancer. ALLERGIES: Demerol. REVIEW OF SYSTEMS: Fourteen point review of systems conducted with the patient. Pertinent positives listed above in the HPI. All other systems reviewed and found to be negative. PHYSICAL EXAMINATION: VITAL SIGNS: Temperature 97.7 degrees, pulse 65, respirations 14, blood pressure 97/52, oxygen saturation 100% on room air. GENERAL: A 55-year-old, female, sitting in the ER stretcher. States that she is in pain from her ulcerations to her lower extremities, in no acute distress. Answers all questions appropriately. HEENT: Head is atraumatic, normocephalic. Pupils equal, round, reactive to light. Extraocular eye movement intact. Sclerae is anicteric. Conjunctivae is pink. Oral mucosa is moist. NECK: Supple. No JVD. Trachea is midline. No cervical lymphadenopathy. CARDIAC: S1-S2 appreciated. Regular rhythm. No murmurs, gallops, rubs. LUNGS: Clear to auscultation bilaterally. No rhonchi, wheezes or rales. Symmetrical rise and fall of respirations. ABDOMEN: Protuberant, soft, nondistended, nontender. Bowel sounds present in all 4 quadrants. Normoactive. No pulsatile mass. No organomegaly. EXTREMITIES: Ulcerations noted to bilateral lower extremities with purulent drainage. Very decreased bilateral pedal pulses with chronic color change and thickened nail beds associated with PVD. NEUROLOGICAL: Alert orient x3. Cranial nerves 2-12 appear to be grossly intact. DIAGNOSTIC DATA: WBC 9.81, hemoglobin 10.9, hematocrit 37.2, platelet count 183 ,000. Sodium 136, potassium 4.9, chloride 105, carbon dioxide 15, BUN 50, creatinine 1.8, glucose 152. ASSESSMENT AND PLAN: 1. Soft tissue infection of bilateral lower extremities. Wound cultures have been sent. Vancomycin and Zosyn were started in the emergency room. We will continue. Blood cultures are pending. We will give morphine as needed for pain. We will consult the Wound Care, as well as Dr. De La Cruz for possible debridement. 2. Systolic congestive heart failure. The patient is not to fluid volume overload at this time. We will give normal saline at 50 mL an hour. Nursing to reconcile home medications. I believes she was taking digoxin. We will continue at 125 mcg p.o. daily. 3. Coronary artery disease with multiple myocardial infarctions and cardiac stenting, as well as a pacemaker. We will continue Plavix. I believe she was also on a beta angelita. We will give metoprolol 12.5 mg p.o. b.i.d. as the patient is normotensive. 4. History of atrial fibrillation, pacemaker noted. Unsure if the patient was on home anticoagulation. She is in sinus rhythm at this time. 5. Chronic obstructive pulmonary disease with continued tobacco use. We will give NicoDerm. We will order p.r.n. DuoNebs if needed for wheezing. Patient is 100% oxygen saturated on room air. 6. Chronic pain syndrome. I believe the patient was on Suboxone at one point. We will order morphine 2 mg IV q.3 hours as needed p.r.n. for pain. 7. Peripheral vascular disease. Very decreased bilateral lower extremity pulses. As noted, Dr. De La Cruz has been consulted to evaluate. Further recommendations per patient clinical course. Dictated by PEPE Sanchez for Anuradha Chahal MD Seen,examined and discussed case with LUMBER CARRIER OPERATOR. cc: PEPE Sanchez MD [facility]
[2016-09-04] MEDS ORDERED: MORPHINE ONE (06:10)
[2016-09-04] MEDS: PRILOSEC PO SCH (06:10)
[2016-09-04] MEDS: HUMALOG SUBQ SCH ×4 (06:19→20:50)
[2016-09-04] MEDS ORDERED: ZOSYN 2.25 GM/NS 2.25 GM/50 ML IVPB IV SCH (07:00)
--- NOTE | 2016-09-04 07:28 | Diag Imaging Result Doc PS360 ---
CHEST-PORTABLE - 09/04/2016 INDICATION: copd TECHNIQUE: COMPARISON: 07/04/2016 FINDINGS: Stable pacemaker. Stable cardiomegaly. There is improvement in the pulmonary vascular congestion when compared with prior. No significant infiltrates or edema. There is some patchy atelectasis in the lung bases particularly on the left. IMPRESSION: Cardiomegaly. Patchy atelectasis in the lung bases. Electronically signed by Sean Wiseman 09/04/2016 7:25 AM
[2016-09-04] MEDS ORDERED: MAXIPIME 1 GM/NS 1 GM/50 ML IVPB IV SCH (07:30)
[2016-09-04] MEDS ORDERED: PLAVIX PO SCH (09:00)
[2016-09-04 09:29] LABS: BASO% 0.4 % (0.0-0.8); EOS# 0.07 X1000 (0.0-0.7); EOS% 0.7 % (0.0-10.0); HEMATOCRIT 37.4 % (37.0-47.0); HEMOGLOBIN 10.7 g/dL (12.0-16.0); IMM GRAN# 0.02 X1000 (0.0-0.04); IMM GRAN% 0.2 % (0.0-0.5); LYMPH# 2.08 X1000 (1.2-3.4); LYMPH% 21.7 % (20.5-51.1); MANUAL DIFF NEEDED? YES; MCH 23.1 PG (27-31); MCHC 28.6 g/dL (33-37); MCV 80.6 FL (81-99); MONO# 1.09 X1000 (0.11-0.59); MONO% 11.4 % (1.7-9.3); MPV 11.5 FL (7.4-10.4); NEUT% 65.6 % (42.2-75.2); PLT 158 X1000 (130-400); RBC 4.64 XMIL (4.2-5.4)
[2016-09-04 09:45] LABS: BASO 1 % (0-1); LYMPHS 21 % (21-51); MONO 7 % (1-9); NRBC 5 % (0-0)
[2016-09-04 09:47] LABS: HYPOCHROM OCCASIONAL; LARGE PLATELETS OCCASIONAL
[2016-09-04 10:12] LABS: CALCIUM 8.1 mg/dL (8.8-10.2)
[2016-09-04] MEDS: LOPRESSOR PO SCH ×4 (10:12→20:55)
[2016-09-04] MEDS: MAXIPIME 1 GM/NS 1 GM/50 ML IVPB IV SCH ×2 (10:33→20:52)
[2016-09-04] MEDS: NICODERM PATCH TD SCH (10:35)
[2016-09-04] MEDS: ZYVOX PO SCH ×2 (10:40→20:52)
[2016-09-04] MEDS: HEPARIN SUBQ SCH ×2 (11:45→11:47)
[2016-09-04] MEDS: LANOXIN PO SCH ×5 (13:20→14:06)
--- NOTE | 2016-09-04 13:48 | CONSULTATION ---
DATE OF CONSULTATION: 09/04/2016 CONCLUSION: Patient is admitted the hospital with a very severe leg cellulitis and multiple ulcerated areas. RECOMMENDATIONS: I have discontinued vancomycin because of the patient's chronic renal disease. Also, I discontinued Zosyn and placed the patient on a combination of Zyvox given p.o. and cefepime given IV. Also, I have ordered to keep the patient's foot of the bed elevated with the manual Gatch and that the patient should elevate her legs as much as possible. I have consulted the wound nurse for help with managing the bilateral leg wounds. DISCUSSION: The patient tells me that it has been years that she has had cellulitis of her legs. She apparently was recently in the hospital for treatment. She returns because she says her legs are very red and she has large wounds on them that are draining quite a bit. Her lab studies thus far show a CBC with a white count of 9810, hemoglobin 10.9, and platelet count 183,000. Patient's creatinine is 1.8, GFR is 29. Liver function studies are normal. Blood and leg culture results are pending. OB-BOILER RELINER HISTORY: She is a 3, para 3, AB 0. She has had a hysterectomy. ADDENDUM: PRESENT ILLNESS: The patient's creatinine is 1.8. The GFR is 29. Liver function studies are normal. Blood and leg cultures are pending. CBC shows a white count of 9810, hemoglobin 10.9, and platelet count 183,000. PREVIOUS HOSPITALIZATIONS AND OPERATIONS: The patient has had 3 labor and deliveries, and a hysterectomy. She has had admission before for leg cellulitis. She has had myocardial infarction, stroke, surgery for breast cancer, placement of a left-sided pacemaker, spinal fusion in the low back area, and placement of coronary artery stents. MEDICAL DISEASES: Positive for diabetes mellitus, myocardial infarction, stroke, breast cancer, COPD, degenerative joint disease, gastroesophageal reflux disease, and cigarette smoking. INFECTIOUS DISEASE HISTORY: Positive for pneumonia and UTI. FAMILY HISTORY: Positive for diabetes mellitus, hypertension, and stroke. [place]IAL H[place]ORY[place] smoke [place]. She does not drink alcoholic beverages or abuse drugs. She is single and lives alone. She had a cat, but it was let go by somebody from her house. DRUG ALLERGIES: The only drug allergy the patient has is to Demerol. HOME MEDICATIONS: Insulin, albuterol inhaler, spironolactone, omeprazole, metoprolol, furosemide, Lexapro, Digitek, Plavix, calcium, and a nicotine patch. INFECTIOUS DISEASE HISTORY: Positive for pneumonia and UTI. FAMILY HISTORY: Positive for diabetes mellitus, hypertension, and stroke. PHYSICAL EXAMINATION: Vital Signs: Temperature is 97.3 degrees, pulse 100, respirations 17, blood pressure 74/36. The patient's weight is listed as 150 pounds. General: This is a chronically ill-appearing, middle-aged female. Head, Eyes, Ears, Nose, and Throat: She can hear my spoken words and see near objects. The patient is wearing dentures in the upper teeth, and the mandibular teeth are necrotic and many are missing. Neck: No meningismus. Lungs: Clear to auscultation. Cardiovascular: Regular heart rate. Abdomen: Soft and nontender. Integument: Patient has excoriated areas all over her body. She admits that she scratches these areas. Extremities: Both legs are very erythematous. They are swollen. They have wounds that extend deep. The wounds are draining a serous fluid. Neurologic: Patient is awake. She can move her extremities. There is no tremor. Sensation was intact to touch. Thorax: Patient has a pacemaker present on the left side. The site is not erythematous or swollen. cc: Mario Avalos MD
[2016-09-04] MEDS ORDERED: TYLENOL PO PRN (20:02)
[2016-09-04] MEDS: MELATONIN PO SCH (20:52)
[2016-09-05] MEDS: NS 1,000 ML IV SCH (04:42)
[2016-09-05] MEDS: HUMALOG SUBQ SCH ×3 (06:22→19:17)
[2016-09-05] MEDS: PRILOSEC PO SCH (06:22)
[2016-09-05 06:36] LABS: BASO% 0.3 % (0.0-0.8); EOS# 0.07 X1000 (0.0-0.7); EOS% 0.6 % (0.0-10.0); HEMATOCRIT 35.8 % (37.0-47.0); HEMOGLOBIN 10.2 g/dL (12.0-16.0); IMM GRAN# 0.03 X1000 (0.0-0.04); IMM GRAN% 0.2 % (0.0-0.5); LYMPH# 1.39 X1000 (1.2-3.4); LYMPH% 11.1 % (20.5-51.1); MANUAL DIFF NEEDED? YES; MCH 23.1 PG (27-31); MCHC 28.5 g/dL (33-37); MCV 81.2 FL (81-99); MONO# 0.93 X1000 (0.11-0.59); MONO% 7.4 % (1.7-9.3); MPV 11.6 FL (7.4-10.4); NEUT% 80.4 % (42.2-75.2); PLT 163 X1000 (130-400); RBC 4.41 XMIL (4.2-5.4)
[2016-09-05 06:51] LABS: BANDS 10 % (0-1); EOS 2 % (1-10); HYPOCHROM 2+; LYMPHS 12 % (21-51); MONO 10 % (1-9)
--- NOTE | 2016-09-05 07:01 | VASCULAR LAB ---
DATE: 09/04/2016 STUDY: Lower extremity arterial study at rest. REFERRING PHYSICIAN: Valery Philippe MD INTERPRETING PHYSICIAN: Orville Kaiser MD TECH: [place] INDICATION: The patient has ulcerations of the ankle areas bilaterally, swelling bilaterally. The brachial pressure is recorded at 125. No high thigh pressures are recorded. The right low thigh pressure is 93, the left low thigh pressure is 80. The right calf pressure is 87, the left calf pressure is 79. There are no ankle pressures obtained. The PVRs are blunted at the thigh level. No PPGs were done. No ankle cuffs were performed due to the patient's lesions. INTERPRETATION: This study is limited. The low thigh and calf pressures are diminished compared to the brachial pressure implying probable superficial femoral occlusions bilaterally. I cannot tell about runoff based on these pictures in this evaluation. The patient may need further imaging in order to completely evaluate the arterial supply of the legs. cc: MD Eladio Fernandes CRNP
[2016-09-05 07:16] LABS: CALCIUM 8.1 mg/dL (8.8-10.2); POTASSIUM 4.6 mmol/L (3.5-5.1)
[2016-09-05] MEDS ORDERED: AMIDATE ONE (07:40)
[2016-09-05] MEDS ORDERED: FENTANYL ONE (08:10)
[2016-09-05] MEDS ORDERED: NORCURON ONE (08:13)
[2016-09-05] MEDS ORDERED: STERILE WATER INJ. ONE (08:13)
[2016-09-05] MEDS ORDERED: ZOFRAN ONE (08:16)
[2016-09-05] MEDS ORDERED: VERSED ONE (08:51)
[2016-09-05] MEDS ORDERED: NORCO-7.5 PO PRN (10:27)
[2016-09-05] MEDS: MAXIPIME 1 GM/NS 1 GM/50 ML IVPB IV SCH (11:20)
--- NOTE | 2016-09-05 11:20 | Diag Imaging Result Doc PS360 ---
EXAM: US ABDOMEN-COMPLETE HISTORY: renal failure/elevated creat. TECHNIQUE: Abdominal ultrasound COMMENT: The study is technically suboptimal due to the patient's body habitus and inability to remain motionless. The visualized portions of the pancreas are unremarkable. The liver is unremarkable. There is antegrade flow in the portal vein. The common bile duct measures 7 mm. This is physiologic as the patient has had previous cholecystectomy. The spleen is not enlarged. The kidneys are without evidence of hydronephrosis or mass. No abnormal fluid collections are present. IMPRESSION: No evidence of acute disease. Electronically signed by Isaac Fonseca 09/05/2016 11:18 AM
[2016-09-05] MEDS: NICODERM PATCH TD SCH (11:30)
[2016-09-05] MEDS: ZYVOX PO SCH (11:35)
[2016-09-05] MEDS: LANOXIN PO SCH (11:40)
[2016-09-05] MEDS: LOPRESSOR PO SCH (11:40)
--- NOTE | 2016-09-05 12:23 | OPERATIVE NOTE ---
PROCEDURE DATE: 09/05/2016 DIAGNOSIS: Ischemic necrosis both calves, left greater than right, primarily anteriorly from knee to ankle. PROCEDURES: Debridement. DESCRIPTION OF PROCEDURE: The patient was brought to the operating room. After satisfactory induction of IV and LMA anesthesia, both feet were placed in the stirrups. The anterior necrotic areas were prepped, draped, and sharply excised. Hemostasis was obtained by electrocautery. The wounds were wrapped with Betadine-soaked Kerlix and Aakash bandage. She may require gkaec-prw-ztlk amputation on the left side sooner than the right. There is poor flow bilaterally. The patient was subsequently awakened and extubated in the operating room and transferred to recovery. ESTIMATED BLOOD LOSS: Around 20-30 mL. cc: Enrrique De La Cruz MD
[2016-09-05] MEDS ORDERED: VANCOMYCIN 1 GM/NS 1 GM/250 ML IVPB IV SCH ×2 (14:00)
[2016-09-05] MEDS: MORPHINE IV PRN (21:24)
[2016-09-05] MEDS: MELATONIN PO SCH (21:27)
[2016-09-05] MEDS: XANAX PO PRN (21:27)
[2016-09-06] MEDS: HUMALOG SUBQ SCH ×4 (00:37→16:34)
[2016-09-06] MEDS: LOPRESSOR PO SCH ×2 (00:38→10:15)
[2016-09-06] MEDS: MAXIPIME 1 GM/NS 1 GM/50 ML IVPB IV SCH ×2 (00:39→13:00)
[2016-09-06] MEDS: NS 1,000 ML IV SCH (00:49)
[2016-09-06] MEDS: MORPHINE IV PRN ×4 (00:49→16:24)
[2016-09-06 07:03] LABS: BASO% 0.1 % (0.0-0.8); HEMATOCRIT 35.7 % (37.0-47.0); HEMOGLOBIN 10.2 g/dL (12.0-16.0); IMM GRAN# 0.06 X1000 (0.0-0.04); IMM GRAN% 0.3 % (0.0-0.5); LYMPH# 1.15 X1000 (1.2-3.4); LYMPH% 6.2 % (20.5-51.1); MANUAL DIFF NEEDED? YES; MCHC 28.6 g/dL (33-37); MCV 80.6 FL (81-99); MONO# 1.38 X1000 (0.11-0.59); MONO% 7.4 % (1.7-9.3); MPV 11.3 FL (7.4-10.4); PLT 170 X1000 (130-400); RBC 4.43 XMIL (4.2-5.4)
[2016-09-06 07:10] LABS: BANDS 10 % (0-1); LYMPHS 6 % (21-51); MONO 8 % (1-9)
[2016-09-06 07:11] LABS: HYPOCHROM 2+; POLYCHROM OCCASIONAL
[2016-09-06 07:34] LABS: CALCIUM 8.3 mg/dL (8.8-10.2); POTASSIUM 5.2 mmol/L (3.5-5.1)
[2016-09-06] MEDS: PRILOSEC PO SCH (07:38)
[2016-09-06] MEDS ORDERED: NS 1,000 ML IV SCH (08:06)
[2016-09-06] MEDS: NICODERM PATCH TD SCH ×2 (08:26→10:15)
[2016-09-06] MEDS ORDERED: ATIVAN ONE ×2 (08:42→08:49)
[2016-09-06] MEDS ORDERED: ATIVAN IV ONE ×2 (08:48→08:49)
[2016-09-06 08:56] LABS: ALLEN TEST YES; BLOOD TYPE ARTERIAL; DRAW SITE R BRACHIAL; METHB 0.9 % (0.0-1.5); O2(CT) 14.4 mL/dL (15.0-23.0); PCO2(98.6) 22 mmHg (35-45); PO2(98.6) 162 mmHg (60-100); SAMPLE BLOOD; THB 10.4 g/dL (11.5-17.4)
[2016-09-06 08:57] LABS: MODALITY NRB
[2016-09-06 08:58] LABS: pH(98.6) < 6.80 (7.35-7.45)
[2016-09-06] MEDS ORDERED: SODIUM BICARBONATE 8.4% IV ONE (09:00)
[2016-09-06] MEDS ORDERED: SODIUM BICARBONATE 8.4% 150 MEQ in D5W 1,000 ML IV SCH (09:00)
[2016-09-06] MEDS ORDERED: SODIUM BICARBONATE 8.4% 100 MEQ in 1/2 NS 1,000 ML IV SCH (09:00)
--- NOTE | 2016-09-06 09:07 | PROGRESS NOTE ---
DATE: 09/05/2016 PRESENT ILLNESS: The patient is status post debridement of severely infected legs. MEDICATIONS: The patient is receiving cefepime as a single agent. PHYSICAL EXAMINATION: Vital Signs: Temperature is 98.8 degrees, pulse 73, respirations 20, blood pressure 96/56. General: This is a chronically ill-appearing, middle-aged female. She is lethargic tonight. Integument: Patient has multiple excoriated areas all over her body. Lungs: Clear to auscultation. Cardiovascular: Regular heart rate. Abdomen: Soft and nontender. Extremities: There are large dressings around both legs. The dressings are intact. LAB AND X-RAY: The CBC for today shows a white count of 12,570, hemoglobin 10.2, and platelet count 163,000. Creatinine is 2.4. GFR is 21. Culture from the patient's leg is growing gram- negative rods. Blood cultures are sterile. Ultrasound of the abdomen showed no acute disease. ASSESSMENT AND PLAN: The patient has severely infected legs for now. I plan to continue with cefepime as a single agent pending culture results. Dr. De La Cruz note indicated that the patient's legs were so badly infected that she may need to have bilateral whzvc-bjp-vwzx amputations. COMORBIDITIES: The patient's comorbidities include the fact that she has very poor health habits. She has diabetes mellitus. She has breast cancer, COPD, gastroesophageal reflux disease, and she smokes cigarettes. cc: Mario Avalos MD
[2016-09-06] MEDS ORDERED: QUELICIN IV ONE (09:15)
[2016-09-06] MEDS ORDERED: VANCOMYCIN IV PER PHARMACY MISC SCH (09:15)
[2016-09-06 09:23] LABS: BASO% 0.1 % (0.0-0.8); HEMATOCRIT 36.8 % (37.0-47.0); HEMOGLOBIN 10.3 g/dL (12.0-16.0); IMM GRAN# 0.14 X1000 (0.0-0.04); IMM GRAN% 0.7 % (0.0-0.5); LYMPH# 1.71 X1000 (1.2-3.4); LYMPH% 8.1 % (20.5-51.1); MANUAL DIFF NEEDED? YES; MCH 22.8 PG (27-31); MCV 81.4 FL (81-99); MONO# 1.53 X1000 (0.11-0.59); MONO% 7.2 % (1.7-9.3); MPV 10.5 FL (7.4-10.4); NEUT% 83.9 % (42.2-75.2); PLT 186 X1000 (130-400); RBC 4.52 XMIL (4.2-5.4)
[2016-09-06] MEDS ORDERED: NS 1,000 ML ONE ×2 (09:24)
[2016-09-06] MEDS ORDERED: VERSED ONE ×2 (09:25)
[2016-09-06] MEDS ORDERED: AMIDATE ONE ×2 (09:25)
[2016-09-06] MEDS ORDERED: QUELICIN ONE ×2 (09:26)
[2016-09-06 09:32] LABS: INR 1.32; PROTIME 14.1 Seconds (9.2-11.7)
[2016-09-06] MEDS: LEVOPHED 8 MG in D5 1/2 NS 250 ML IV SCH ×2 (09:38→13:18)
[2016-09-06 09:47] LABS: LYMPHS 4 % (21-51); MONO 6 % (1-9); NRBC 5 % (0-0)
[2016-09-06 09:49] LABS: ALBUMIN 2.7 g/dL (3.5-5.0); CALCIUM 8.1 mg/dL (8.8-10.2); HYPOCHROM 2+; POTASSIUM 5.4 mmol/L (3.5-5.1); TOTAL BILIRUBIN 0.57 mg/dL (0.20-1.00); TOTAL PROTEIN 5.9 g/dL (6.3-8.3)
--- NOTE | 2016-09-06 10:05 | Diag Imaging Result Doc PS360 ---
EXAM: CHEST-PORTABLE HISTORY: NG/ ET tube placement TECHNIQUE: Semiupright portable AP COMPARISON: 09/04/2016 FINDINGS: Interval placement of an endotracheal tube. Tip is located 3 cm above the ramón. A nasogastric tube has been placed which overlies the esophagus and stomach. Patient has a left-sided pacemaker and there is a vascular stent overlying the upper left chest. The lungs are well expanded. The heart is not enlarged. The vessels are not distended. Believe there is a small left pleural effusion. IMPRESSION: Endotracheal and nasogastric tubes in good position. Electronically signed by Arnel Bailon 09/06/2016 10:02 AM
[2016-09-06] MEDS: LANOXIN PO SCH (10:14)
--- NOTE | 2016-09-06 10:28 | EKG Report ---
Test Performed on : 09/06/2016 09:43:37 AM Test Reason : cat call Blood Pressure : / mmHG Vent. Rate : 098 BPM Atrial Rate : 098 BPM P-R Int : 206 ms QRS Dur : 106 ms QT Int : 352 ms P-R-T Axes : 040 138 -01 degrees QTc Int : 449 ms Normal sinus rhythm. Possible Left atrial enlargement Low voltage QRS Anterolateral infarct (cited on or before 26-MAY-2013) Abnormal ECG When compared with ECG of 04-JUL-2016 11:33, Significant changes have occurred Confirmed by Estephania Woods MD ([id number]) on 09/10/2016 12:24:01 PM
[2016-09-06] MEDS ORDERED: ATIVAN IV PRN (12:10)
[2016-09-06] MEDS ORDERED: VANCOMYCIN 1 GM/NS 1 GM/250 ML IVPB IV SCH (13:00)
--- NOTE | 2016-09-06 13:52 | PROGRESS NOTE ---
DATE: 09/06/2016 SUBJECTIVE: This patient was found unresponsive on the medical floor. When I evaluated this patient, she was not alert and she was not answering, not even to pain stimulation. Her eyes, one moving from one side to another constantly, and she was in respiratory distress. Probably, this patient had a seizure and she was treated for it. She has multiple comorbidities including anxiety, depression, type 2 diabetes, coronary artery disease with multiple myocardial infarctions status post stenting, atrial fibrillation, COPD but apparently continues to use tobacco products, chronic pain syndrome, chronic kidney disease stage 3, CHF with an ejection fraction of 45%, hypertension. Lower extremity cellulitis and history of ovarian cancer. During my evaluation, this patient's blood gases showed a pH of 6.8, a pCO2 of 22, PO2 of 162 on a nonrebreathing mask and a lactate of 9.4. She was immediately transferred to the ICU. She received bicarbonate 2 amps and, also, I put her on a drip. Because of her unresponsiveness and respiratory distress, this patient was placed on mechanical ventilation. Also, she was placed on pressors. Before doing all this, I talked to the daughter, and she told me that we can go ahead and do everything to keep her alive. Her kidney function is declining to the point that she is not making urine. Nephrology Department now he is on board. OBJECTIVE: Vital Signs: Temperature 97.8 degrees, pulse on the monitor 98, respiratory rate 25, oxygen saturation 90 on 100% oxygen flow mechanical ventilation. Blood pressure 151 over 67 on pressors. HEENT: Head normocephalic. No trauma. PERRLA. Neck supple. No JVD. No masses. Central trachea. Chest: Bilateral generalized rhonchi and rales at the bases. Prolonged expiatory phase. Cardiovascular: RRR. Abdomen soft, nontender, nondistended. Extremities: She had bilateral lower extremity coldness. She recently went for surgery, so she has a dressing around both legs. I cannot feel the pulses. Neurological: The patient is sedated and intubated. LABORATORY: WBC 21.1, hemoglobin 10.3, hematocrit 36.8, platelet 186,000. Bands 10, sodium 143, potassium 5.4, chloride 105, bicarbonate 10. BUN 70, creatinine 3, glucose 127. Calcium 8.1, albumin 2.7. ASSESSMENT AND PLAN: 1. Soft tissue infection of bilateral lower extremity with a positive culture that showed gram- negative edward and apparently also Methicillin-resistant Staphylococcus aureus. Wee will continue with the same treatment for now, Dr. Avalos, from Infectious Disease Department is following this patient. We will follow his recommendations. 2. Bilateral lower extremity ischemic necrosis on both calves, left greater than right. Surgery Department is following this patient. She went for surgery on 09/05/2016 for a debridement, will monitor. Continue with antibiotics. 3. Congestive heart failure. Continue with the same management for now. She is in the ICU, and she is getting fluid resuscitation. 4. History of coronary artery disease with multiple myocardial infarctions and cardiac stenting, aware. Continue with the same management. 5. History of atrial fibrillation. Pacemaker noted. I am not quite sure that this patient was on home anticoagulation but, at this moment, she is not getting any anticoagulation. 6. Severe metabolic acidosis likely secondary to an infection process and respiratory distress and kidney injury. This patient is in the ICU. She is getting bicarbonate drip and pressors. 7. Septic shock likely secondary to lower extremity infection. Continue with pressors and ICU monitoring. 8. Respiratory failure, continue with mechanical ventilation. Pulmonary Department on board. 9. Anetb-ic-pagsvqb kidney injury. This patient is not making urine. Nephrology Department has been consulted. We will follow their recommendations. I had a large conversation with her daughter. We discussed her prognosis and the current situation. This patient has poor prognosis. We discussed also the DNR status, and she decided to put her mom DNR LEVEL 2. She does not want CPR or cardioversion in case of cardiac arrest. CRITICAL CARE TIME: 45 minutes. Time discussing prognosis, DNR status with the daughter: About 30 minutes. cc: Dwight Garcia MD
[2016-09-06] MEDS ORDERED: D50W SYRINGE ONE (16:33)
[2016-09-06 17:49] VITALS: BP 35/29
--- NOTE | 2016-09-06 18:01 | PROGRESS NOTE ---
DATE: 09/06/2016 Family members at the bedside. This patient is desaturating even with mechanical ventilation and oxygen supplementation at 100%. I had a conversation with the family and they decided to withdraw care. I explained to them the whole process she is still getting treatment to keep her comfortable and they seem to understand. She is about to be extubated. TIME SPENT: Time discussing with the patient's family about the whole process about 30 minutes. cc: Dwight Garcia MD
--- NOTE | 2016-09-06 18:30 | CONSULTATION ---
DATE OF CONSULTATION: 09/06/2016 REQUESTING PHYSICIAN: Dwight Garcia MD. REASON FOR CONSULTATION: Pending respiratory arrest. HISTORY OF PRESENT ILLNESS: Ms. Silva is a 55-year-old, white female, with multiple medical problems including COPD, congestive heart failure, severe peripheral vascular disease with lower extremity ulcerations and infections, who has previously been followed by the palliative care team. In June, patient elected to be a do not intubate resuscitation status and was discharged to hospice. The patient went home where she lives by herself and was found unresponsive by the hospice the following morning. The patient was returned to the hospital and recovered from this event. By discharge notes, she was to return to a rehab facility and be readmitted to hospice. The patient was home for approximately 2 weeks (hospice status not known). When she returned to the emergency room, 09/04/2016 with ischemia and severe infections of the lower extremities. She is currently growing gram-negative rods from a wound infection and is being followed by Infectious Disease. The patient was taken to the operating room yesterday for debridement, and was noted to have poor flow in both lower extremities. It was felt that she would likely require above-the- knee amputation, probably bilaterally, but sooner on the left than on the right. The patient was found poorly responsive using accessory muscles this morning. Arterial blood gas was performed which revealed a lactate of 9.0 with a pH of less than 6.8. The patient was transferred to the intensive care unit. I was summoned from the opposite side of the ICU to evaluate the patient and intubate the patient. The patient was unresponsive upon my arrival. She was cold and clammy and cyanotic. Systemic blood pressure was below 50. Patient's code status remained full. The patient had small IVs in both hands and fluid was initiated. She was subsequently intubated and initiated on mechanical ventilation. PAST MEDICAL HISTORY/PROBLEM LIST: 1. Severe peripheral vascular disease with chronic ischemia of both lower extremities. 2. COPD with ongoing tobacco use. 3. Coronary artery disease with prior myocardial infarctions and stent placement. According to the old charts, she has been noncompliant with cardiac follow up. 4. Status post cholecystectomy. 5. Status post hysterectomy. 6. Chronic renal insufficiency. 7. Status post 2 back fusions with chronic pain syndrome. 8. Status post pacemaker placement. SOCIAL HISTORY: Ongoing tobacco use as per above. No alcohol use listed. Previously on Suboxone for chronic pain syndrome. FAMILY HISTORY: Positive for diabetes, colon cancer and prostate cancer. REVIEW OF SYSTEMS: Cannot be obtained. PHYSICAL EXAMINATION: General: Reveals a chronically ill-appearing, white female, who appears much older than her stated age of 55. Vital Signs: Heart rate 88, respirator rate on mechanical ventilation 25. Oxygen saturation 100%. Systolic blood pressure 102/68. HEENT: Pupils are equal, but sluggish. Oropharynx is clear. Neck: Supple. Chest: Reveals coarse rhonchi throughout all lung olea. Cardiac: Distant heart sounds. Normal S1 normal S2. Abdomen: Soft and without hepatosplenomegaly. Extremities: Cold to the touch. She has multiple sores on the left forearm. Nail beds are cyanotic. She has evidence of chronic ischemia at both lower extremities, but the surgical dressings were not removed. DIAGNOSTIC STUDIES: Chest x-ray following intubation reveals endotracheal tube and nasogastric tube in good position. She has cardiomegaly. She has patchy infiltrates with small left-sided effusion. IMPRESSION: A 55-year-old with: 1. Severe peripheral vascular disease. 2. Chronic obstructive pulmonary disease. 3. Coronary artery disease with reduction in ejection fraction. 4. Ongoing tobacco use. 5. Failure to thrive. Who presented in a severely debilitated state with grossly infected ischemic lower extremities. She is now intubated after developing acute hypoxemic respiratory failure and shock. Her code status upon arrival to the intensive care unit was full code, but has subsequently been modified by Dr. Alvarez to Do Not Resuscitate level 2. RECOMMENDATION: 1. Continue current ventilator settings. 2. Continue volume resuscitation. 3. Discuss IV access with Dr. De La Cruz. 4. Antibiotics per Dr. Mario Avalos. 5. Recommend ongoing end of life discussions. Patient's prognosis is extremely poor and hospice will be recommended if she survives to extubation and discharge. cc: Dustin Martin MD
--- NOTE | 2016-09-07 14:35 | DISCHARGE SUMMARY ---
ADMISSION DATE: 09/04/2016 DISCHARGE DATE: 09/06/2016 DISCHARGE DIAGNOSES: 1. Patient's demise at 17:20 on 09/06/2016. 2. Septic shock. 3. Severe metabolic acidosis. 4. Soft tissue infection of bilateral lower extremities with positive culture with gram-negative edward and apparently methicillin-resistant Staphylococcus aureus. 5. 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 6. Congestive heart failure. 7. History of coronary artery disease with multiple myocardial infarctions and cardiac stenting. 8. History of chronic obstructive pulmonary disease. 9. History of atrial fibrillation with pacemaker. 10. Respiratory failure. 11. Acute on chronic kidney injury. HOSPITAL COURSE: This patient was initially admitted on 09/04/2016, with lower extremity ulcerations that have apparently progressively gotten worse, so she came to the emergency room. She was noted to have bilateral lower extremity ulceration with purulent drainage. She was started on antibiotics immediately and Surgery Department evaluated this patient. They found out that she has infection and necrosis on mostly at the level of the calf., this patient was receiving also fluids and most of her home medications. She went to the OR on 09/05/2016 and the ischemic /infectious process was so bad that probably she needed an amputation in the near future, unilaterally or bilaterally. Today we noticed that this patient's WBC increased to 21. She started having respiratory distress and worsening of her kidney function, she was found unresponsive and apparently she was seizing. She was transferred immediately to the ICU. She was placed on mechanical ventilation, because of her severe metabolic acidosis, we started this patient on bicarbonate. I have been having conversations with her daughter during the day and they decided to withdraw care a few moments ago. This patient's demise at 17:20 on 09/06/2016. I did evaluate this patient at the bedside. She was not breathing by herself or having any kind of reflex. No heart sounds either. cc: Dwight Garcia MD
== END 2016-09-06 17:20 | disposition expired ==
LOC: ED 21:28 → 3N 09-04 04:33 → SUATTDRO 09-04 04:33 → ICU 09-06 09:34
PROVIDERS: ATTEND Internal Medicine